=== PATIENT | female | born 1955 | race Caucasian/White ===

== ENCOUNTER → 2016-08-28 | Outpatient (CLI) | payer OTHER ==
--- NOTE | 2016-08-28 14:59 | REP ---
Clinical: Pain . Technique: AP, lateral, bilateral oblique views of the left elbow. Findings: No acute fracture or dislocation is appreciated. Joint spaces and surrounding soft tissues appear normal. Lateral view demonstrates normal positioning to the anterior and posterior fat pads without evidence for effusion/hemarthrosis. No subcutaneous emphysema or foreign body identified. Impression: Normal left elbow radiographs. Signed by Gordon Christianson MD 08/28/2016 02:50 P
== END ==
LOC: M LRY 13:59
PROVIDERS: ATTEND Nurse Practitioner Family
DX: M25.522 Pain in left elbow (principal)

== ENCOUNTER → 2016-12-15 | Outpatient (CLI) | payer OTHER ==
--- NOTE | 2016-12-19 08:53 | DEXA ---
AP SPINE L1 - L4 0.848 -2.8 -1.8 LT FEMUR TOTAL RT FEMUR TOTAL Bilateral hip replacement. TOTAL BODY TOTAL LEFT FOREARM 0.838 -0.6 0.6 DUAL FEMUR FRAX* ASSESSMENT Risk factors: NA 10 year probability of fracture Major osteoporotic fracture % Hip fracture % COMMENTS: There is osteoporosis of the spine. There is osteoporosis of the left radius. The decreased density of the spine does represent a significant change. The density of the spine has decreased 13.8% since initial exam on 09/05/2000. The spine density has decreased 5.0% since the most recent exam on 01/28/2010. FOLLOW-UP: Recommendation for the next bone density exam: 2 years. ADAM
== END ==
LOC: M WHC 08:35
PROVIDERS: ATTEND Physician Assistant
DX: M85.80 Other specified disorders of bone density and structure, unspecified site (principal); Z12.31 Encounter for screening mammogram for malignant neoplasm of breast

== ENCOUNTER → 2017-01-20 | Outpatient (CLI) | payer OTHER ==
--- NOTE | 2017-01-20 18:25 | REP ---
Clinical: Rule out foreign body. Technique: AP, lateral, bilateral oblique views of the left ankle. Findings: Age-related changes are appreciated. No acute fracture dislocation. Mild soft tissue swelling over the medial malleolus. No subcutaneous emphysema or foreign body. Impression: Age-related changes. Mild medial swelling. No foreign body identified. Signed by Gordon Christianson MD 01/20/2017 06:17 P
== END ==
LOC: M LRY 17:31
PROVIDERS: ATTEND Nurse Practitioner Family
DX: M79.89 Other specified soft tissue disorders (principal)

== ENCOUNTER → 2017-01-31 | Outpatient (CLI) | payer OTHER ==
[2017-01-31 20:24] LABS: ALBUMIN 3.4 GM/DL (3.2-5.2); ALBUMIN/GLOBULIN RATIO 0.89 (1.00-1.93); BILIRUBIN,TOTAL 0.3 MG/DL (0.2-1.0); CALCIUM LEVEL 9.3 MG/DL (8.8-10.2); CREATININE FOR GFR 1.51 MG/DL (0.55-1.02); GLOMERULAR FILTRATION RATE 37.2 (>45); POTASSIUM SERUM 4.8 MEQ/L (3.5-5.1); TOTAL PROTEIN 7.2 GM/DL (6.4-8.2)
[2017-01-31 20:35] LABS: BASO % 0.5 % (0.0-1.0); EOS # 0.2 K/mm3 (0.0-0.50); EOS % 1.9 % (0.0-3.0); LARGE UNSTAINED CELL # 0.1 K/mm3 (0.0-0.4); LARGE UNSTAINED CELL % 1.4 % (0.0-4.0); LYMPH # 3.5 K/mm3 (1.5-4.5); MEAN CORPUSCULAR HGB CONC 33.7 g/dl (32.0-36.5); MONO # 0.5 K/mm3 (0.0-0.8); MONO % 6.3 % (0.0-5.0); NEUTROPHILS # 4.3 K/mm3 (1.8-7.7); PLATELET COUNT, AUTOMATED 194 k/mm3 (150-450); RED CELL DISTRIBUTION WIDTH 13.9 % (11.5-14.5); WHITE BLOOD COUNT 8.6 K/mm3 (4.0-10.0)
== END ==
LOC: M LRY 15:55
PROVIDERS: ATTEND Internal Medicine
DX: N18.3 Chronic kidney disease, stage 3 (moderate) (principal)

== ENCOUNTER → 2017-07-27 | Outpatient (REF) | payer OTHER ==
[2017-07-27 12:14] LABS: MEAN CORPUSCULAR HGB CONC 33.3 g/dl (32.0-36.5); MEAN CORPUSCULAR VOLUME 95.9 fl (80.0-96.0); PLATELET COUNT, AUTOMATED 165 10^3/uL (150-450); RED CELL DISTRIBUTION WIDTH 14.6 % (11.5-14.5)
== END ==
LOC: M SFHCLERA 08:08
PROVIDERS: ATTEND Physician Assistant
DX: I10 Essential (primary) hypertension (principal); E78.2 Mixed hyperlipidemia; M85.80 Other specified disorders of bone density and structure, unspecified site

== ENCOUNTER → 2017-07-28 | Outpatient (REF) | payer OTHER ==
[2017-07-28 20:36] LABS: ALBUMIN 3.2 GM/DL (3.2-5.2); ALBUMIN/GLOBULIN RATIO 0.8 (1.00-1.93); BILIRUBIN,TOTAL 0.3 MG/DL (0.2-1.0); CALCIUM LEVEL 8.9 MG/DL (8.8-10.2); CREATININE FOR GFR 1.65 MG/DL (0.55-1.02); GLOMERULAR FILTRATION RATE 33.4 (>45); POTASSIUM SERUM 4.6 MEQ/L (3.5-5.1); TOTAL PROTEIN 7.2 GM/DL (6.4-8.2)
== END ==
LOC: M SFHCLERA 19:50
PROVIDERS: ATTEND Physician Assistant
DX: E78.2 Mixed hyperlipidemia (principal); I10 Essential (primary) hypertension; M85.80 Other specified disorders of bone density and structure, unspecified site

== ENCOUNTER → 2017-10-04 | Outpatient (REF) | payer OTHER ==
[2017-10-04 20:43] LABS: APPEARANCE, URINE CLEAR (CLEAR); BACTERIA, URINE AUTO NEGATIVE (NEGATIVE); BILIRUBIN, URINE AUTO NEGATIVE (NEGATIVE); BLOOD, URINE BLOOD 3+ (NEGATIVE); COLOR, URINE YELLOW (YELLOW); GLUCOSE, URINE (UA) AUTO NEGATIVE (NEGATIVE); KETONE, URINE AUTO NEGATIVE (NEGATIVE); LEUKOCYTE ESTERASE, URINE AUTO NEGATIVE (NEGATIVE); MUCUS, URINE SMALL (NEGATIVE); NITRITE, URINE AUTO NEGATIVE (NEGATIVE); PROTEIN, URINE AUTO NEGATIVE (NEGATIVE); RBC, URINE AUTO 51 /HPF (0-3); SPECIFIC GRAVITY URINE AUTO 1.014 (1.002-1.035); SQUAMOUS EPITHELIAL CELL UR AU 1 /HPF (0-6); UROBILINOGEN, URINE AUTO 0.2 mg/dL (0.0-2.0); WBC, URINE AUTO 2 /HPF (0-3)
== END ==
LOC: M SFHCLERA 11:58
DX: N39.0 Urinary tract infection, site not specified (principal)
CPT/HCPCS: 81001

== ENCOUNTER → 2017-11-15 | Outpatient (CLI) | payer OTHER | LOC: M LRY 17:04 | DX: M25.551 Pain in right hip (principal); M25.552 Pain in left hip; M54.5 Low back pain; Z96.643 Presence of artificial hip joint, bilateral; M51.36 Other intervertebral disc degeneration, lumbar region | CPT/HCPCS: 72110 ==

== ENCOUNTER → 2018-01-29 | Outpatient (REF) | payer OTHER ==
[2018-01-29 16:56] LABS: ALBUMIN 3.8 GM/DL (3.2-5.2); ALKALINE PHOSPHATASE 71 U/L (45-117); ALT/SGPT 13 U/L (12-78); ANION GAP 7 MEQ/L (8-16); AST/SGOT 17 U/L (7-37); BILIRUBIN,TOTAL 0.4 MG/DL (0.2-1.0); BLOOD UREA NITROGEN 43 MG/DL (7-18); CALCIUM LEVEL 9.4 MG/DL (8.8-10.2); CARBON DIOXIDE LEVEL 27 MEQ/L (21-32); CHLORIDE LEVEL 109 MEQ/L (98-107); GLOMERULAR FILTRATION RATE 28.4 (>45); GLUCOSE, FASTING 92 MG/DL (70-100); SODIUM LEVEL 143 MEQ/L (136-145)
[2018-01-29 17:05] LABS: POTASSIUM SERUM 5.4 MEQ/L (3.5-5.1)
== END ==
LOC: M SFHCLERA 11:29
DX: N18.3 Chronic kidney disease, stage 3 (moderate) (principal)

== ENCOUNTER → 2018-02-09 | Outpatient (REF) | payer OTHER ==
[2018-02-09 15:01] LABS: BASO % 0.3 % (0.0-1.0); EOS # 0.1 10^3/uL (0.0-0.50); EOS % 1.4 % (0.0-3.0); HEMATOCRIT 36.8 % (36.0-47.0); HEMOGLOBIN 12.3 g/dl (12.0-15.5); IMMATURE GRANULOCYTE % 0.4 % (0-3.0); LYMPH # 3.8 10^3/uL (1.5-4.5); LYMPH % 48.9 % (24.0-44.0); MEAN CORPUSCULAR HEMOGLOBIN 31.9 pg (27.0-33.0); MEAN CORPUSCULAR HGB CONC 33.4 g/dl (32.0-36.5); MEAN CORPUSCULAR VOLUME 95.3 fl (80.0-96.0); MONO # 0.6 10^3/uL (0.0-0.8); MONO % 7.5 % (0.0-5.0); NEUTROPHILS # 3.3 10^3/uL (1.8-7.7); NEUTROPHILS % 41.5 % (36.0-66.0); PLATELET COUNT, AUTOMATED 117 10^3/uL (150-450); RED BLOOD COUNT 3.86 10^6/uL (4.00-5.40); RED CELL DISTRIBUTION WIDTH 13.5 % (11.5-14.5); WHITE BLOOD COUNT 7.8 10^3/uL (4.0-10.0)
[2018-02-09 15:15] LABS: INR 0.94; PROTHROMBIN TIME 12.6 SECONDS (12.4-14.5)
[2018-02-09 15:16] LABS: ALBUMIN 3.3 GM/DL (3.2-5.2); ALBUMIN/GLOBULIN RATIO 0.83 (1.00-1.93); ALKALINE PHOSPHATASE 60 U/L (45-117); ALT/SGPT 10 U/L (12-78); ANION GAP 9 MEQ/L (8-16); AST/SGOT 13 U/L (7-37); BILIRUBIN,TOTAL 0.3 MG/DL (0.2-1.0); BLOOD UREA NITROGEN 57 MG/DL (7-18); CARBON DIOXIDE LEVEL 22 MEQ/L (21-32); CHLORIDE LEVEL 112 MEQ/L (98-107); CREATININE FOR GFR 3.57 MG/DL (0.55-1.30); FERRITIN 105 NG/ML (8-252); GLOMERULAR FILTRATION RATE 13.7 (>45); GLUCOSE, FASTING 84 MG/DL (70-100); PARTIAL THROMBOPLASTIN TIME 28.3 SECONDS (26.8-37.9); SODIUM LEVEL 143 MEQ/L (136-145); TOTAL PROTEIN 7.3 GM/DL (6.4-8.2)
[2018-02-09 15:19] LABS: POTASSIUM SERUM 5.9 MEQ/L (3.5-5.1)
== END ==
LOC: M SFHCLERA 13:40
DX: R23.3 Spontaneous ecchymoses (principal); N18.3 Chronic kidney disease, stage 3 (moderate); R53.83 Other fatigue

== ENCOUNTER → 2018-02-11 | Outpatient (REF) | payer OTHER ==
[2018-02-11 12:36] LABS: ALBUMIN 3.1 GM/DL (3.2-5.2); ANION GAP 9 MEQ/L (8-16); BLOOD UREA NITROGEN 58 MG/DL (7-18); CALCIUM LEVEL 9.2 MG/DL (8.8-10.2); CARBON DIOXIDE LEVEL 24 MEQ/L (21-32); CHLORIDE LEVEL 111 MEQ/L (98-107); CREATININE FOR GFR 3.02 MG/DL (0.55-1.30); GLOMERULAR FILTRATION RATE 16.7 (>45); GLUCOSE, FASTING 62 MG/DL (70-100); PHOSPHORUS LEVEL 4.4 MG/DL (2.5-4.9); SODIUM LEVEL 144 MEQ/L (136-145)
[2018-02-11 12:39] LABS: POTASSIUM SERUM 5.8 MEQ/L (3.5-5.1)
[2018-02-11 13:35] LABS: CREATININE, URINE 99.2 MG/DL; MALB URINE SIEMENS 19.6 MG/L; MAU/CREAT RATIO 19.7 MCG/MG (0.0-30.0)
== END ==
LOC: M SFHCLERA 08:27
DX: N18.3 Chronic kidney disease, stage 3 (moderate) (principal)

== ENCOUNTER → 2018-02-19 | Outpatient (REF) | payer OTHER ==
[2018-02-19 16:56] LABS: HEMATOCRIT 30.2 % (36.0-47.0); HEMOGLOBIN 10.1 g/dl (12.0-15.5); MEAN CORPUSCULAR HEMOGLOBIN 31.4 pg (27.0-33.0); MEAN CORPUSCULAR HGB CONC 33.4 g/dl (32.0-36.5); MEAN CORPUSCULAR VOLUME 93.8 fl (80.0-96.0); PLATELET COUNT, AUTOMATED 129 10^3/uL (150-450); RED BLOOD COUNT 3.22 10^6/uL (4.00-5.40); RED CELL DISTRIBUTION WIDTH 13.4 % (11.5-14.5); WHITE BLOOD COUNT 7.1 10^3/uL (4.0-10.0)
[2018-02-19 17:15] LABS: ALBUMIN 2.8 GM/DL (3.2-5.2); ALBUMIN/GLOBULIN RATIO 0.74 (1.00-1.93); ALKALINE PHOSPHATASE 60 U/L (45-117); ALT/SGPT 14 U/L (12-78); ANION GAP 10 MEQ/L (8-16); AST/SGOT 20 U/L (7-37); BILIRUBIN,TOTAL 0.3 MG/DL (0.2-1.0); BLOOD UREA NITROGEN 29 MG/DL (7-18); CALCIUM LEVEL 8.3 MG/DL (8.8-10.2); CARBON DIOXIDE LEVEL 27 MEQ/L (21-32); CHLORIDE LEVEL 107 MEQ/L (98-107); CREATININE FOR GFR 1.97 MG/DL (0.55-1.30); FERRITIN 120 NG/ML (8-252); GLOMERULAR FILTRATION RATE 27.3 (>45); GLUCOSE, FASTING 85 MG/DL (70-100); IRON (FE) 50 UG/DL (50-170); POTASSIUM SERUM 4.5 MEQ/L (3.5-5.1); SODIUM LEVEL 144 MEQ/L (136-145); TOTAL PROTEIN 6.6 GM/DL (6.4-8.2)
== END ==
LOC: M SFHCLERA 10:41
DX: N17.9 Acute kidney failure, unspecified (principal); I10 Essential (primary) hypertension; D64.9 Anemia, unspecified
CPT/HCPCS: 83540

== ENCOUNTER → 2018-04-05 | Outpatient (CLI) | payer OTHER | LOC: M PAIN 14:45 | DX: M25.551 Pain in right hip (principal); M25.552 Pain in left hip; M54.5 Low back pain; M70.61 Trochanteric bursitis, right hip; G89.29 Other chronic pain; I12.9 Hypertensive chronic kidney disease with stage 1 through stage 4 chronic kidney disease, or unspecified chronic kidney disease; N18.3 Chronic kidney disease, stage 3 (moderate); E78.5 Hyperlipidemia, unspecified; F32.9 Major depressive disorder, single episode, unspecified; J30.9 Allergic rhinitis, unspecified; R56.9 Unspecified convulsions; Z79.899 Other long term (current) drug therapy; Z91.018 Allergy to other foods; Z91.030 Bee allergy status; Z91.09 Other allergy status, other than to drugs and biological substances; Z96.643 Presence of artificial hip joint, bilateral; Z87.898 Personal history of other specified conditions; Z86.79 Personal history of other diseases of the circulatory system; Z87.448 Personal history of other diseases of urinary system | CPT/HCPCS: G0463 ==

== ENCOUNTER → 2018-04-10 | Outpatient (REF) | payer OTHER ==
[2018-04-10 20:38] LABS: ANION GAP 9 MEQ/L (8-16); BLOOD UREA NITROGEN 36 MG/DL (7-18); CALCIUM LEVEL 9.1 MG/DL (8.8-10.2); CARBON DIOXIDE LEVEL 24 MEQ/L (21-32); CHLORIDE LEVEL 111 MEQ/L (98-107); CREATININE FOR GFR 2.13 MG/DL (0.55-1.30); GLOMERULAR FILTRATION RATE 24.8 (>45); GLUCOSE, FASTING 91 MG/DL (70-100); MAGNESIUM LEVEL 1.8 MG/DL (1.8-2.4); PHOSPHORUS LEVEL 4.1 MG/DL (2.5-4.9); POTASSIUM SERUM 4.3 MEQ/L (3.5-5.1); SODIUM LEVEL 144 MEQ/L (136-145)
[2018-04-10 20:48] LABS: PTH INTACT 168.8 PG/ML (18.5-88.0); TOTAL 25(OH) VITAMIN D 28.8 NG/ML (30.0-100.0)
[2018-04-10 21:18] LABS: CREATININE, URINE 95.7 MG/DL; MALB URINE SIEMENS 50.9 MG/L; MAU/CREAT RATIO 53.1 MCG/MG (0.0-30.0)
== END ==
LOC: M SFHCLERA 17:18
DX: N18.4 Chronic kidney disease, stage 4 (severe) (principal)

== ENCOUNTER → 2018-04-19 | Outpatient (REF) | payer OTHER ==
[2018-04-19 16:31] LABS: ALBUMIN 3.4 GM/DL (3.2-5.2); ALBUMIN/GLOBULIN RATIO 0.77 (1.00-1.93); ALKALINE PHOSPHATASE 69 U/L (45-117); ALT/SGPT 14 U/L (12-78); ANION GAP 10 MEQ/L (8-16); AST/SGOT 20 U/L (7-37); BILIRUBIN,TOTAL 0.3 MG/DL (0.2-1.0); BLOOD UREA NITROGEN 29 MG/DL (7-18); CALCIUM LEVEL 9.4 MG/DL (8.8-10.2); CARBON DIOXIDE LEVEL 22 MEQ/L (21-32); CHLORIDE LEVEL 113 MEQ/L (98-107); CREATININE FOR GFR 2.06 MG/DL (0.55-1.30); GLOMERULAR FILTRATION RATE 25.8 (>45); GLUCOSE, FASTING 78 MG/DL (70-100); POTASSIUM SERUM 4.5 MEQ/L (3.5-5.1); SODIUM LEVEL 145 MEQ/L (136-145); TOTAL PROTEIN 7.8 GM/DL (6.4-8.2)
== END ==
LOC: M SFHCLERA 14:13
DX: N18.4 Chronic kidney disease, stage 4 (severe) (principal)

== ENCOUNTER → 2018-05-01 | Outpatient (CLI) | payer OTHER ==
[2018-05-01 17:13] LABS: APPEARANCE, URINE CLEAR (CLEAR); BACTERIA, URINE AUTO NEGATIVE (NEGATIVE); BILIRUBIN, URINE AUTO NEGATIVE (NEGATIVE); BLOOD, URINE BLOOD 3+ (NEGATIVE); COLOR, URINE YELLOW (YELLOW); GLUCOSE, URINE (UA) AUTO NEGATIVE (NEGATIVE); KETONE, URINE AUTO NEGATIVE (NEGATIVE); LEUKOCYTE ESTERASE, URINE AUTO NEGATIVE (NEGATIVE); NITRITE, URINE AUTO NEGATIVE (NEGATIVE); PROTEIN, URINE AUTO NEGATIVE (NEGATIVE); RBC, URINE AUTO 64 /HPF (0-3); SPECIFIC GRAVITY URINE AUTO 1.011 (1.002-1.035); SQUAMOUS EPITHELIAL CELL UR AU 0 /HPF (0-6); WBC, URINE AUTO 1 /HPF (0-3)
[2018-05-01 17:32] LABS: HEMATOCRIT 33.4 % (36.0-47.0); HEMOGLOBIN 11.2 g/dl (12.0-15.5); MEAN CORPUSCULAR HEMOGLOBIN 32.3 pg (27.0-33.0); MEAN CORPUSCULAR HGB CONC 33.5 g/dl (32.0-36.5); MEAN CORPUSCULAR VOLUME 96.3 fl (80.0-96.0); PLATELET COUNT, AUTOMATED 150 10^3/uL (150-450); RED BLOOD COUNT 3.47 10^6/uL (4.00-5.40); RED CELL DISTRIBUTION WIDTH 14.2 % (11.5-14.5); WHITE BLOOD COUNT 7.6 10^3/uL (4.0-10.0)
[2018-05-01 18:07] LABS: ANION GAP 9 MEQ/L (8-16); BLOOD UREA NITROGEN 30 MG/DL (7-18); CARBON DIOXIDE LEVEL 25 MEQ/L (21-32); CHLORIDE LEVEL 110 MEQ/L (98-107); CREATININE FOR GFR 2.18 MG/DL (0.55-1.30); GLOMERULAR FILTRATION RATE 24.2 (>45); GLUCOSE, FASTING 93 MG/DL (70-100); SODIUM LEVEL 144 MEQ/L (136-145); VALPROIC ACID (DEPAKOTE) 91.4 UG/ML (50.0-100.0)
[2018-05-01 18:12] LABS: POTASSIUM SERUM 6.5 MEQ/L (3.5-5.1)
[2018-05-01 18:19] LABS: CREATININE, URINE 54.4 MG/DL; MALB URINE SIEMENS 17.2 MG/L; MAU/CREAT RATIO 31.6 MCG/MG (0.0-30.0)
== END ==
LOC: M LRY 12:04
DX: N18.3 Chronic kidney disease, stage 3 (moderate) (principal); I12.9 Hypertensive chronic kidney disease with stage 1 through stage 4 chronic kidney disease, or unspecified chronic kidney disease; G40.909 Epilepsy, unspecified, not intractable, without status epilepticus
CPT/HCPCS: 80164

== ENCOUNTER → 2018-05-08 | Outpatient (CLI) | payer OTHER ==
[2018-05-08 11:37] LABS: ANION GAP 7 MEQ/L (8-16); BLOOD UREA NITROGEN 22 MG/DL (7-18); CALCIUM LEVEL 8.8 MG/DL (8.8-10.2); CARBON DIOXIDE LEVEL 28 MEQ/L (21-32); CHLORIDE LEVEL 109 MEQ/L (98-107); CREATININE FOR GFR 1.94 MG/DL (0.55-1.30); GLOMERULAR FILTRATION RATE 27.7 (>45); GLUCOSE, FASTING 80 MG/DL (70-100); POTASSIUM SERUM 4.9 MEQ/L (3.5-5.1); SODIUM LEVEL 144 MEQ/L (136-145)
== END ==
LOC: M LRY 08:17
DX: N18.3 Chronic kidney disease, stage 3 (moderate) (principal)
CPT/HCPCS: 80048

== ENCOUNTER → 2018-06-15 | Outpatient (CLI) | payer OTHER | LOC: M RAD 13:57 | DX: M54.5 Low back pain (principal); R93.7 Abnormal findings on diagnostic imaging of other parts of musculoskeletal system | CPT/HCPCS: 72148 ==

== ENCOUNTER → 2018-06-21 | Outpatient (CLI) | payer OTHER ==
[2018-06-21 17:00] LABS: HEMATOCRIT 36.9 % (36.0-47.0); HEMOGLOBIN 12.1 g/dl (12.0-15.5); MEAN CORPUSCULAR HEMOGLOBIN 31.6 pg (27.0-33.0); MEAN CORPUSCULAR HGB CONC 32.8 g/dl (32.0-36.5); MEAN CORPUSCULAR VOLUME 96.3 fl (80.0-96.0); PLATELET COUNT, AUTOMATED 141 10^3/uL (150-450); RED BLOOD COUNT 3.83 10^6/uL (4.00-5.40); RED CELL DISTRIBUTION WIDTH 13.4 % (11.5-14.5); WHITE BLOOD COUNT 7.9 10^3/uL (4.0-10.0)
[2018-06-21 17:26] LABS: ALBUMIN 3.4 GM/DL (3.2-5.2); ALBUMIN/GLOBULIN RATIO 0.92 (1.00-1.93); ALKALINE PHOSPHATASE 64 U/L (45-117); ALT/SGPT 11 U/L (12-78); ANION GAP 10 MEQ/L (8-16); AST/SGOT 24 U/L (7-37); BILIRUBIN,TOTAL 0.3 MG/DL (0.2-1.0); BLOOD UREA NITROGEN 27 MG/DL (7-18); CALCIUM LEVEL 9.6 MG/DL (8.8-10.2); CARBON DIOXIDE LEVEL 26 MEQ/L (21-32); CHLORIDE LEVEL 109 MEQ/L (98-107); CHOLESTEROL LEVEL 181 MG/DL (<200); CHOLESTEROL RISK RATIO 2.701 (<5); CREATININE FOR GFR 1.97 MG/DL (0.55-1.30); GLOMERULAR FILTRATION RATE 27.2 (>45); GLUCOSE, FASTING 81 MG/DL (70-100); HDL CHOLESTEROL 67 MG/DL (>40); LDL CHOLESTEROL 80 MG/DL (<100); NON-HDL-C 114 MG/DL; POTASSIUM SERUM 4.7 MEQ/L (3.5-5.1); SODIUM LEVEL 145 MEQ/L (136-145); TOTAL PROTEIN 7.1 GM/DL (6.4-8.2); TRIGLYCERIDES LEVEL 170 MG/DL (<150)
[2018-06-21 17:45] LABS: MALB URINE SIEMENS 51.6 MG/L
[2018-06-21 17:48] LABS: MAU/CREAT RATIO 45.3 MCG/MG (0.0-30.0)
[2018-06-21 18:01] LABS: APPEARANCE, URINE HAZY (CLEAR); BACTERIA, URINE AUTO 1+ (NEGATIVE); BILIRUBIN, URINE AUTO NEGATIVE (NEGATIVE); BLOOD, URINE BLOOD 3+ (NEGATIVE); COLOR, URINE YELLOW (YELLOW); GLUCOSE, URINE (UA) AUTO NEGATIVE (NEGATIVE); KETONE, URINE AUTO NEGATIVE (NEGATIVE); LEUKOCYTE ESTERASE, URINE AUTO TRACE (NEGATIVE); MUCUS, URINE SMALL (NEGATIVE); NITRITE, URINE AUTO NEGATIVE (NEGATIVE); PROTEIN, URINE AUTO NEGATIVE (NEGATIVE); RBC, URINE AUTO 156 /HPF (0-3); SPECIFIC GRAVITY URINE AUTO 1.013 (1.002-1.035); SQUAMOUS EPITHELIAL CELL UR AU 0 /HPF (0-6); UROBILINOGEN, URINE AUTO 0.2 mg/dL (0.0-2.0); WBC, URINE AUTO 5 /HPF (0-3)
== END ==
LOC: M LRY 12:24
DX: N18.3 Chronic kidney disease, stage 3 (moderate) (principal); E78.00 Pure hypercholesterolemia, unspecified
CPT/HCPCS: 80053

== ENCOUNTER → 2018-07-04 | Outpatient (CLI) | payer OTHER | LOC: M PAIN 15:00 | DX: M47.816 Spondylosis without myelopathy or radiculopathy, lumbar region (principal); M79.18 Myalgia, other site; M54.5 Low back pain; I12.9 Hypertensive chronic kidney disease with stage 1 through stage 4 chronic kidney disease, or unspecified chronic kidney disease; N18.3 Chronic kidney disease, stage 3 (moderate); E78.5 Hyperlipidemia, unspecified; F32.9 Major depressive disorder, single episode, unspecified; R56.9 Unspecified convulsions; Z79.899 Other long term (current) drug therapy; Z88.8 Allergy status to other drugs, medicaments and biological substances; Z91.030 Bee allergy status; Z91.09 Other allergy status, other than to drugs and biological substances; Z91.018 Allergy to other foods; Z96.643 Presence of artificial hip joint, bilateral; Z87.891 Personal history of nicotine dependence | CPT/HCPCS: G0463 ==

== ENCOUNTER → 2018-07-26 | Outpatient (CLI) | payer OTHER ==
[2018-07-26 11:27] LABS: APPEARANCE, URINE HAZY (CLEAR); BACTERIA, URINE AUTO 1+ (NEGATIVE); BILIRUBIN, URINE AUTO NEGATIVE (NEGATIVE); BLOOD, URINE BLOOD 3+ (NEGATIVE); COLOR, URINE YELLOW (YELLOW); GLUCOSE, URINE (UA) AUTO NEGATIVE (NEGATIVE); KETONE, URINE AUTO NEGATIVE (NEGATIVE); LEUKOCYTE ESTERASE, URINE AUTO NEGATIVE (NEGATIVE); NITRITE, URINE AUTO NEGATIVE (NEGATIVE); PROTEIN, URINE AUTO NEGATIVE (NEGATIVE); RBC, URINE AUTO TNTC /HPF (0-3); SPECIFIC GRAVITY URINE AUTO 1.009 (1.002-1.035); SQUAMOUS EPITHELIAL CELL UR AU 0 /HPF (0-6); UROBILINOGEN, URINE AUTO 0.2 mg/dL (0.0-2.0); WBC, URINE AUTO 7 /HPF (0-3)
[2018-07-26 11:29] LABS: HEMATOCRIT 35.4 % (36.0-47.0); HEMOGLOBIN 12.1 g/dl (12.0-15.5); MEAN CORPUSCULAR HEMOGLOBIN 31.7 pg (27.0-33.0); MEAN CORPUSCULAR HGB CONC 34.2 g/dl (32.0-36.5); MEAN CORPUSCULAR VOLUME 92.7 fl (80.0-96.0); PLATELET COUNT, AUTOMATED 163 10^3/uL (150-450); RED BLOOD COUNT 3.82 10^6/uL (4.00-5.40); RED CELL DISTRIBUTION WIDTH 13.3 % (11.5-14.5); WHITE BLOOD COUNT 7.2 10^3/uL (4.0-10.0)
[2018-07-26 11:35] LABS: ALBUMIN 3.3 GM/DL (3.2-5.2); ALKALINE PHOSPHATASE 70 U/L (45-117); ALT/SGPT 10 U/L (12-78); ANION GAP 12 MEQ/L (8-16); AST/SGOT 19 U/L (7-37); BILIRUBIN,TOTAL 0.4 MG/DL (0.2-1.0); BLOOD UREA NITROGEN 41 MG/DL (7-18); CALCIUM LEVEL 8.8 MG/DL (8.8-10.2); CARBON DIOXIDE LEVEL 24 MEQ/L (21-32); CHLORIDE LEVEL 108 MEQ/L (98-107); CREATININE FOR GFR 2.33 MG/DL (0.55-1.30); GLOMERULAR FILTRATION RATE 22.4 (>45); GLUCOSE, FASTING 86 MG/DL (70-100); POTASSIUM SERUM 3.9 MEQ/L (3.5-5.1); SODIUM LEVEL 144 MEQ/L (136-145); TOTAL PROTEIN 7.4 GM/DL (6.4-8.2); VALPROIC ACID (DEPAKOTE) 52.9 UG/ML (50.0-100.0)
[2018-07-26 11:46] LABS: AMMONIA 33 uMOL/L (<32)
[2018-07-26 12:14] LABS: CREATININE, URINE 63.5 MG/DL; MALB URINE SIEMENS 17.7 MG/L; MAU/CREAT RATIO 27.8 MCG/MG (0.0-30.0)
== END ==
LOC: M LRY 09:10
DX: N18.3 Chronic kidney disease, stage 3 (moderate) (principal); G40.909 Epilepsy, unspecified, not intractable, without status epilepticus
CPT/HCPCS: 82140

== ENCOUNTER → 2018-08-16 | Outpatient (CLI) | payer OTHER ==
[~2018-08-16] MED LIST: ASPI81TAEC PO; BIMA01SOL IO; BIMA01SOL OU; BRIM1OPD IO; BRIM1OPD OU; CYMB1CAP5 PO; DIVA250T67 PO; DIVA500T94 PO; DULO1CAP2 PO; FLON1SPR; FLUTISP; GABA-843 PO; KALEPOW PO; LISI-538 PO; LORA-243 PO; LORA10TA3 PO; MAGN400C3 PO; OXYB10TA PO; PANT40TA3 PO; PRAV20TA2 PO; RANI150T PO; TIZA2TA PO; VELT1POW PO
[2018-08-16 20:08] LABS: HEMATOCRIT 37.8 % (36.0-47.0); HEMOGLOBIN 12.7 g/dl (12.0-15.5); MEAN CORPUSCULAR HEMOGLOBIN 31.8 pg (27.0-33.0); MEAN CORPUSCULAR HGB CONC 33.6 g/dl (32.0-36.5); MEAN CORPUSCULAR VOLUME 94.5 fl (80.0-96.0); PLATELET COUNT, AUTOMATED 141 10^3/uL (150-450); WHITE BLOOD COUNT 7.9 10^3/uL (4.0-10.0)
[2018-08-16 20:12] LABS: ALBUMIN 3.7 GM/DL (3.2-5.2); BILIRUBIN,TOTAL 0.4 MG/DL (0.2-1.0); CALCIUM LEVEL 9.4 MG/DL (8.8-10.2); CREATININE FOR GFR 3.09 MG/DL (0.55-1.30); GLOMERULAR FILTRATION RATE 16.2 (>45); POTASSIUM SERUM 4.2 MEQ/L (3.5-5.1); TOTAL PROTEIN 8.2 GM/DL (6.4-8.2)
== END ==
LOC: M LRY 15:49
PROVIDERS: ATTEND Internal Medicine
DX: N18.3 Chronic kidney disease, stage 3 (moderate) (principal)

== ENCOUNTER → 2018-08-16 | Outpatient (CLI) | payer OTHER ==
--- NOTE | 2018-09-03 02:04 | ECWPNPC ---
PATIENT NAME: NILDA COLBY : 1955 GENDER: FEMALE VISIT DATE: 08/16/2018 DISCHARGE DATE: 08/16/18 1208 VISIT LOCKED DATE TIME: PHYSICIAN: ANA SANCHEZ MD RESOURCE: ANA SANCHEZ MD REASON FOR APPOINTMENT 1. LOW BACK PAIN HISTORY OF PRESENT ILLNESS HISTORY OF PRESENT ILLNESS: PAIN THE PATIENT DESCRIBES THE PAIN... 63 YEAR OLD FEMALE PATIENT WITH A HISTORY OF CHRONIC LOW BACK PAIN. THE PATIENT DESCRIBES THE PAIN ACHING, BURNING SHARP, STABBING, TENDER, SORE, SHOOTING, AND INTERMITTENT WITH A PAIN SCORE OF 6-10/10 DEPENDING ON PHYSICAL ACTIVITY. THE PATIENT SAYS HER PAIN STARTS IN HER LOW BACK AREA AND RADIATES INTO HER HIPS AND GROIN. THE PATIENT HAD BILATERAL HIP SURGERY DUE TO A HISTORY OF VASCULAR NECROSIS OF THE HIPS. PATIENT DENIES UNEXPLAINABLE WEIGHT LOSS, FEVER, CHILLS, NEW CHANGES ON HER URINARY OR BOWEL CONTROL. FALL RISK SCREENING: SCREENING :NO FALLS IN THE PAST YEAR CURRENT MEDICATIONS TAKING ACETAMINOPHEN EXTRA STRENGTH 500 MG TABLET 1 TABLET NEEDED ORALLY EVERY 6 HRS TAKING FISH OIL 1200 MG CAPSULE 4 CAPSULE ORALLY ONCE A DAY TAKING LUMIGAN 0.01 % SOLUTION 1 DROP INTO AFFECTED EYE IN THE EVENING OPHTHALMIC ONCE A DAY TAKING ALPHAGAN P TAKING VENTOLIN HFA 108 (90 BASE) MCG/ACT AEROSOL SOLUTION 2 PUFFS NEEDED INHALATION EVERY 4 HRS TAKING DULOXETINE HCL 30 MG CAPSULE DELAYED RELEASE PARTICLES 1 CAPSULE ORALLY DAILY TAKING FLONASE ALLERGY RELIEF 50 MCG/ACT SUSPENSION 1 SPRAY IN EACH NOSTRIL NASALLY BID TAKING PRAVASTATIN SODIUM 20 MG TABLET 1 TABLET ORALLY ONCE A DAY TAKING DIVALPROEX SODIUM 500 MG TABLET DELAYED RELEASE 1 TABLET ALONG WITH 250MG IN AM ORALLY TWICE A DAY FOR SEIZURES TAKING FLOVENT HFA 220 MCG/ACT AEROSOL 1 PUFF INHALATION TWICE A DAY TAKING GABAPENTIN 300 MG CAPSULE 1 CAPSULE ORALLY DAILY TAKING FLUOCINOLONE ACETONIDE 0.025 % CREAM 1 APPLICATION TO TRUNK AND ARMS EXTERNALLY ONCE A DAY PRN TAKING OXYBUTYNIN CHLORIDE ER 10 MG TABLET EXTENDED RELEASE 24 HOUR 1 TABLET ORALLY ONCE A DAY TAKING DIVALPROEX SODIUM 250 MG TABLET DELAYED RELEASE 1 TABLET ORALLY QAM FOR SEIZURES TAKING HYDROXYZINE HCL 25 MG TABLET 1-2 TABS ORALLY TID PRN, NOTES: NONE RECENTLY TAKING AMMONIUM LACTATE 12 % CREAM 1 APPLICATION TO AFFECTED AREA OF BOTH FEET EXTERNALLY TWICE A DAY TAKING TOPROL XL 25 MG TABLET EXTENDED RELEASE 24 HOUR 1 TABLET ORALLY ONCE A DAY TAKING STOOL SOFTENER 100 MG CAPSULE 1 CAPSULE NEEDED ORALLY ONCE A WEEK TAKING ASPIRIN 81 MG TABLET DELAYED RELEASE 1 TABLET ORALLY ONCE A DAY TAKING HOSPITAL BED(ADJUSTABLE) STANDARD _ DIRECTED _ DAILY ICD10 M25.551, M54.5, Z87.39 TAKING BLOOD PRESSURE KIT - KIT DIRECTED _ DAILY TAKING ZANTAC 150 MG TABLET 1 TABLET AT BEDTIME ORALLY ONCE A DAY DISCONTINUED TIZANIDINE HCL 2 MG TABLET 1 TAB ORALLY QHS DISCONTINUED REFRESH LIQUIGEL 1 % SOLUTION 1 DROP INTO AFFECTED EYE NEEDED OPHTHALMIC 24 TIME(S) A DAY DISCONTINUED HYDROCODONE-ACETAMINOPHEN 5-325 MG TABLET 1/2-1 TABLET NEEDED ORALLY EVERY 6 HRS (MDD-4 TABS), NOTES: NONE RECENTLY DISCONTINUED CICLOPIROX 8 % SOLUTION 1 APPLICATION TO BILATERAL TOENAILS EXTERNALLY ONCE A DAY; CLEAN OFF NAILS WITH ALCOHOL EVERY 7 DAYS DISCONTINUED DEPAKOTE 500 MG TABLET DELAYED RELEASE TAKE ONE TABLET BY MOUTH TWICE A DAY FOR SEIZURES (ALSO AN ADDITIONAL 250MG IN A.M.) DISCONTINUED PANTOPRAZOLE SODIUM 40 MG TABLET DELAYED RELEASE TAKE ONE TABLET BY MOUTH DAILY ORAL DISCONTINUED MAGNESIUM OXIDE 400 (241.3 MG) MG TABLET TAKE ONE TABLET BY MOUTH TWICE A DAY ORAL DISCONTINUED LOVAZA 1 GM CAPSULE 2 CAPSULES ORALLY TWICE A DAY MEDICATION LIST REVIEWED AND RECONCILED WITH THE PATIENT PAST MEDICAL HISTORY HYPERTENSION HYPERLIPIDEMIA OVERACTIVE BLADDER DEPRESSION ALLERGIES SEIZURE DISORDER LEG CRAMPS ALLERGY-INDUCED BRONCHOSPASM RSTAGE 3 KEDNEY DISEASE LEFT KNEE PAIN ALLERGIES FRESH WATER FISH: HIVES: ALLERGY AMLODIPINE BESYLATE: LOWER EXTREMITY EDEMA: SIDE EFFECTS HORSES/BEES: HIVES: ALLERGY SURGICAL HISTORY LEFT HIP REPLACEMENT RIGHT HIP REPLACEMENT TUBAL LIGATION HYSTERECTOMY & BSO 1997 FOOT SURGERY X 2 ON EACH FOOT BREAST BIOPSY EACH BREAST CATARACT-BILATERAL COLONOSCOPY ([facility] - DR. DUMONT) 2011 FAMILY HISTORY FATHER: , LUNG CANCER, DIAGNOSED WITH CANCER MOTHER: , OVARIAN CANCER, DIAGNOSED WITH CANCER SIBLINGS: ALIVE SON(S): ALIVE 1 BROTHER(S) . 3 SON(S) . SOCIAL HISTORY GENERAL: TOBACCO USE ARE YOU A:FORMER SMOKER 2007 QUIT HOW LONG HAS IT BEEN SINCE YOU LAST SMOKED?> 10 YEARS LUNG CANCER SCREENING SMOKING STATUS: FORMER SMOKER. BMI CARE GOAL FOLLOW-UP ABOVE NORMAL BMI FOLLOW-UPDIETARY MANAGEMENT EDUCATION, GUIDANCE, AND COUNSELING ALCOHOL SCREENING DID YOU HAVE A DRINK CONTAINING ALCOHOL IN THE PAST YEAR?YES HOW MANY DRINKS DID YOU HAVE ON A TYPICAL DAY WHEN YOU WERE DRINKING IN THE PAST YEAR?1 OR 2 (0 POINTS) HOW OFTEN DID YOU HAVE A DRINK CONTAINING ALCOHOL IN THE PAST YEAR?MONTHLY OR LESS (1 POINT) POINTS1 INTERPRETATIONNEGATIVE RECREATIONAL DRUG USE DRUG USE?NO CAFFEINE CAFFEINE USE?YES DIET COKE SEXUAL HX HAD SEX IN THE LAST 12 MONTHS (VAGINAL, ORAL, OR ANAL)?NO HAVE YOU EVER HAD AN STD?NO HIV / HEP-C SCREENING HIV TEST OFFERED TO PATIENT:YES DATE OFFERED:08/06/2018 TEST ACCEPTED:NO REASON:PATIENT DECLINED BROCHURE PROVIDED TO PATIENTYES HEP-C TEST OFFERED TO PATIENT:YES DATE OFFERED:08/06/2018 TEST ACCEPTED:NO REASON:PATIENT DECLINED CATHOLIC [id number] RESTORATIONISM LANGUAGE LANGUAGES SPOKEN:OCCITAN EDUCATION LEVEL OF EDUCATION:NOT FINISHED COLLEGE LEARNING BARRIERS / SPECIAL NEEDS CHANGE FROM LAST VISIT?NO BARRIERS TO LEARNING?NO HEARING IMPAIRED?NO VISION IMPAIRED?NO COGNITIVELY IMPAIRED?NO READINESS TO LEARN?YES LEARNING PREFERENCES?NO LEARNING CAPABILITIES PRESENT?YES EMOTIONAL BARRIERS?NO SPECIAL DEVICES?NO ENGINEERING AGENT NEEDED?NO DOMESTIC VIOLENCE DO YOU FEEL SAFE IN YOUR ENVIRONMENT?YES 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 DIET: REGULAR. EXERCISE: WALKS. MARITAL STATUS: . OTHERS AT HOME: NONE. PAIN CLINIC PFS, CLERGY, PUBLIC HEALTH REFERRALS PFS REFERRAL NEEDED?NO CLERGY REFERRAL NEEDED?NO PUBLIC HEALTH REFERRAL NEEDED?NO WAS THE PROVIDER NOTIFIED OF ANY PERTINENT INFO?NO HAS THE PATIENT BEEN EDUCATED REGARDING HIS/HER PLAN OF CARE?YES HAS THE PATIENT BEEN EDUCATED REGARDING PAIN, THE RISK FOR PAIN, THE IMPORTANCE OF EFFECTIVE PAIN MANAGEMENT, AND THE PAIN ASSESSMENT PROCESS?YES HOUSING: RENTS APARTMENT. ADVANCE DIRECTIVE ADVANCE DIRECTIVE DISCUSSED WITH PATIENT:YES PT DOES NOT WANT INTO AT THIS TIME. 07/04/18 REVIEWED WITH PT 07/04/18 1529 BV. HOSPITALIZATION/MAJOR DIAGNOSTIC PROCEDURE [facility]RA 01/2018 REVIEW OF SYSTEMS REVIEWED BY: PROVIDER: ANA SANCHEZ MD . CONSTITUTIONAL: ANY CHANGE IN YOUR MEDICAL CONDITION? YES . CHILLS NO . FEVER NO . INFECTION: DO YOU HAVE NEW INFECTIONS? NO . DO YOU HAVE HISTORY OF MRSA? NO . MUSCULOSKELETAL: ANY NEW PATTERNS OF PAIN OR NUMBNESS? YES . GASTROENTEROLOGY: ANY NEW CHANGE IN BOWEL CONTROL? NO . GENITOURINARY: ANY NEW CHANGE IN BLADDER CONTROL? NO . IS THERE A CHANCE YOU COULD BE ? NO . HEMATOLOGY/LYMPH: DO YOU TAKE ANY BLOOD THINNERS? (FOR EXAMPLE- COUMADIN, PLAVIX, AGGRENOX, PLATEL, PRADAXA, OR XARELTO) NO . WHEN WAS YOUR LAST DOSE? DATE: TIME: . NEUROLOGY: HAVE YOU FALLEN IN THE PAST 6 MONTHS? NO . ANY NEW EXTREMITY NUMBNESS OR WEAKNESS? NO . CARDIOLOGY: DO YOU HAVE A PACEMAKER OR DEFIBRILLATOR? NO . RESPIRATORY: HAVE YOU BEEN SICK IN THE PAST WEEK? NO . FEVER NO . FLU LIKE SYMPTOMS? NO . COUGH NO . INTEGUMENTARY: DO YOU HAVE ANY RASHES OR OPEN SORES? NO . ALLERGIC/IMMUNO: ARE YOU ALLERGIC TO SHELLFISH OR IV DYE? NO . ANY NEW ALLERGIES? NO . PSYCHIATRIC: DO YOU HAVE THOUGHTS OF HURTING YOURSELF OR SOMEONE ELSE? NO . ARE YOU ABUSED, NEGLECTED, OR IN AN UNSAFE ENVIRONMENT? NO . ENDOCRINOLOGY: ARE YOU DIABETIC? NO . OTHER: DO YOU NEED ANY PRESCRIPTIONS? NO . IF YES, PLEASE LIST: ____ . ANY NEW PROBLEMS WITH YOUR MEDICATIONS? NO . WHEN DID YOU LAST EAT? ____ . WHEN DID YOU LAST DRINK? ____ . WHAT DID YOU LAST DRINK? ____ . NAME OF PERSON DRIVING YOU HOME? ____ . DO YOU HAVE ANY OTHER QUESTIONS OR CONCERNS YES, PAIN IN MY KNEE FROM FALLING SEEMS TO BE WORSE AND LINGERING . VITAL SIGNS WT 168.2 LBS, HT 67 IN, BMI 26.34 INDEX, BP 131/69 MM HG, HR 61 /MIN, RR 16 /MIN, TEMP 96.9 F, OXYGEN SAT % 97%, SAFE IN ENV? (Y/N) Y, NA INITIALS SC 10:38, REVIEWED BY: DEVON. EXAMINATION GENERAL EXAMINATION: PATIENT IS ALERT O X 3 AND COOPERATIVE. TENDERNESS IN THE LOW BACK AREA. PAIN INCREASES OVER THE LUMBAR FACET JOINTS WITH EXTENSION AND LATERAL ROTATION OF THE BACK. MRI OF THE LUMBAR SPINE DONE ON 06/15/2018 SHOWS FACET ARTHROPATHY CHANGES AT MULTIPLE LEVELS. ASSESSMENTS SPONDYLOSIS OF LUMBAR REGION WITHOUT MYELOPATHY OR RADICULOPATHY - M47.816 (PRIMARY) TREATMENT SPONDYLOSIS OF LUMBAR REGION WITHOUT MYELOPATHY OR RADICULOPATHY CLINICAL NOTES: WE DISCUSSED SEVERAL ISSUES WITH MRS. COLBY'S PAIN MANAGEMENT CASE. I WOULD LIKE TO DISCUSS THE CASE WITH THE PATIENT'S POULTRY BONER AND ORTHOPEDIC SURGEON REGARDING THE NECROSIS OF THE HIPS AND THE PATIENT'S KIDNEYS. AFTER SPEAKING WITH THE PATIENT'S DOCTORS WE WILL CONSIDER A BILATERAL LUMBAR FACET THERAPEUTIC BLOCK. THE PATIENT WILL FOLLOW UP IN 2 WEEKS. INSTRUCTIONS WERE GIVEN, QUESTIONS WERE ANSWERED, PATIENT REPORTS UNDERSTANDING AND AGREES WITH THE PLAN. I, SAMANTHA WILLIAM, DOCUMENTED THE ABOVE INFORMATION ACTING A SCRIBE FOR DR. SANCHEZ. I HAVE REVIEWED THE ABOVE DOCUMENT, WRITTEN BY SAMANTHA SKINNERIBLiyah AND I VERIFY THAT IT IS ACCURATE. PROCEDURE CODES FA211 ESTABILISHED PATIENT [facility] FACILITY CHARGE G8427 CURRENT MEDS W/DOSAGES DOCUMENTED G8730 PAIN ASSESS POS TOOL F/U PLAN DOC DISPOSITION & COMMUNICATION FOLLOW UP 2 WEEKS ELECTRONICALLY SIGNED BY ANA SANCHEZ MD, MD ON 09/02/2018 AT 02:09 PM EST DISCLAIMER : THIS IS A VISIT SUMMARY EXTRACTED FROM THE [employer] CHART. IT IS NOT A COPY OF THE [employer] PROGRESS NOTE. MTDOnesimo
== END ==
LOC: M PAIN 10:30
PROVIDERS: ATTEND Anesthesiology
DX: M47.816 Spondylosis without myelopathy or radiculopathy, lumbar region (principal); I12.9 Hypertensive chronic kidney disease with stage 1 through stage 4 chronic kidney disease, or unspecified chronic kidney disease; E78.5 Hyperlipidemia, unspecified; N32.81 Overactive bladder; F32.9 Major depressive disorder, single episode, unspecified; G40.909 Epilepsy, unspecified, not intractable, without status epilepticus; N18.9 Chronic kidney disease, unspecified; M25.562 Pain in left knee; Z96.643 Presence of artificial hip joint, bilateral; Z98.41 Cataract extraction status, right eye; Z98.42 Cataract extraction status, left eye; Z87.891 Personal history of nicotine dependence; Z79.82 Long term (current) use of aspirin; Z79.899 Other long term (current) drug therapy; Z91.030 Bee allergy status; Z91.013 Allergy to seafood; Z88.8 Allergy status to other drugs, medicaments and biological substances

== ENCOUNTER → 2018-08-28 | Outpatient (CLI) | payer OTHER ==
[2018-08-28 15:51] LABS: HEMATOCRIT 34.8 % (36.0-47.0); HEMOGLOBIN 11.5 g/dl (12.0-15.5); MEAN CORPUSCULAR HEMOGLOBIN 31.5 pg (27.0-33.0); MEAN CORPUSCULAR VOLUME 95.3 fl (80.0-96.0); PLATELET COUNT, AUTOMATED 142 10^3/uL (150-450); RED BLOOD COUNT 3.65 10^6/uL (4.00-5.40); WHITE BLOOD COUNT 7.2 10^3/uL (4.0-10.0)
[2018-08-28 16:04] LABS: ALT/SGPT < 6 U/L (12-78); BILIRUBIN,TOTAL 0.3 MG/DL (0.2-1.0); BLOOD UREA NITROGEN 32 MG/DL (7-18); CALCIUM LEVEL 8.8 MG/DL (8.8-10.2); CARBON DIOXIDE LEVEL 28 MEQ/L (21-32); CHLORIDE LEVEL 107 MEQ/L (98-107); CREATININE FOR GFR 2.23 MG/DL (0.55-1.30); GLOMERULAR FILTRATION RATE 23.6 (>45); GLUCOSE, FASTING 85 MG/DL (70-100); POTASSIUM SERUM 5.1 MEQ/L (3.5-5.1); SODIUM LEVEL 141 MEQ/L (136-145); TOTAL PROTEIN 7.1 GM/DL (6.4-8.2)
[2018-08-28 16:22] LABS: MALB URINE SIEMENS 46.2 MG/L; MAU/CREAT RATIO 42.3 MCG/MG (0.0-30.0)
[2018-08-28 16:57] LABS: APPEARANCE, URINE HAZY (CLEAR); BACTERIA, URINE AUTO 1+ (NEGATIVE); BILIRUBIN, URINE AUTO NEGATIVE (NEGATIVE); BLOOD, URINE BLOOD 3+ (NEGATIVE); COLOR, URINE YELLOW (YELLOW); GLUCOSE, URINE (UA) AUTO NEGATIVE (NEGATIVE); KETONE, URINE AUTO NEGATIVE (NEGATIVE); LEUKOCYTE ESTERASE, URINE AUTO TRACE (NEGATIVE); NITRITE, URINE AUTO NEGATIVE (NEGATIVE); PROTEIN, URINE AUTO 1+ mg/dL (NEGATIVE); RBC, URINE AUTO TNTC /HPF (0-3); SPECIFIC GRAVITY URINE AUTO 1.013 (1.002-1.035); SQUAMOUS EPITHELIAL CELL UR AU 0 /HPF (0-6); WBC, URINE AUTO 4 /HPF (0-3)
== END ==
LOC: M LRY 11:24
PROVIDERS: ATTEND Internal Medicine
DX: N18.3 Chronic kidney disease, stage 3 (moderate) (principal)

== ENCOUNTER → 2018-10-28 | Outpatient (CLI) | payer OTHER ==
--- NOTE | 2018-11-11 00:11 | ECWPNPC ---
PATIENT NAME: NILDA COLBY : 1955 GENDER: FEMALE VISIT DATE: 10/28/2018 DISCHARGE DATE: 10/28/181643 VISIT LOCKED DATE TIME: PHYSICIAN: ANA SANCHEZ MD RESOURCE: ANA SANCHEZ MD REASON FOR APPOINTMENT 1. LOW BACK HISTORY OF PRESENT ILLNESS HISTORY OF PRESENT ILLNESS: PAIN THE PATIENT DESCRIBES THE PAIN... 63 YEAR OLD FEMALE PATIENT WITH A HISTORY OF CHRONIC LOW BACK PAIN. THE PATIENT DESCRIBES THE PAIN ACHING, BURNING, SHARP, STABBING, AND INTERMITTENT WITH A PAIN SCORE OF 5-8/10 DEPENDING ON PHYSICAL ACTIVITY. THE PATIENT SAYS HER PAIN STARTS IN HER LOW BACK AND RADIATES INTO BOTH HIPS AND DOWN HER LEGS. THE PATIENT SAYS THAT HER LEFT SIDE HAS BEEN WORSE LATELY. THE PATIENT HAS A HISTORY OF VASCULAR NECROSIS AND SAYS HER HUMAN CAPITAL MANAGER TOLD HER SHE IS ABLE TO HAVE INJECTIONS WITH STEROIDS. PATIENT DENIES UNEXPLAINABLE WEIGHT LOSS, FEVER, CHILLS, NEW CHANGES ON HER URINARY OR BOWEL CONTROL. FALL RISK SCREENING: SCREENING : NO FALLS IN THE PAST YEAR. CURRENT MEDICATIONS TAKING AMMONIUM LACTATE 12 % CREAM 1 APPLICATION TO AFFECTED AREA OF BOTH FEET EXTERNALLY TWICE A DAY TAKING ACETAMINOPHEN EXTRA STRENGTH 500 MG TABLET 1 TABLET NEEDED ORALLY EVERY 6 HRS TAKING FISH OIL 1200 MG CAPSULE 4 CAPSULE ORALLY ONCE A DAY TAKING LUMIGAN 0.01 % SOLUTION 1 DROP INTO AFFECTED EYE IN THE EVENING OPHTHALMIC ONCE A DAY TAKING ALPHAGAN P TAKING VENTOLIN HFA 108 (90 BASE) MCG/ACT AEROSOL SOLUTION 2 PUFFS NEEDED INHALATION EVERY 4 HRS TAKING DULOXETINE HCL 30 MG CAPSULE DELAYED RELEASE PARTICLES 1 CAPSULE ORALLY DAILY TAKING FLONASE ALLERGY RELIEF 50 MCG/ACT SUSPENSION 1 SPRAY IN EACH NOSTRIL NASALLY BID TAKING PRAVASTATIN SODIUM 20 MG TABLET 1 TABLET ORALLY ONCE A DAY TAKING DIVALPROEX SODIUM 500 MG TABLET DELAYED RELEASE 1 TABLET ALONG WITH 250MG IN AM ORALLY TWICE A DAY FOR SEIZURES TAKING FLOVENT HFA 220 MCG/ACT AEROSOL 1 PUFF INHALATION TWICE A DAY TAKING FLUOCINOLONE ACETONIDE 0.025 % CREAM 1 APPLICATION TO TRUNK AND ARMS EXTERNALLY ONCE A DAY PRN TAKING OXYBUTYNIN CHLORIDE ER 10 MG TABLET EXTENDED RELEASE 24 HOUR 1 TABLET ORALLY ONCE A DAY TAKING DIVALPROEX SODIUM 250 MG TABLET DELAYED RELEASE 1 TABLET ORALLY QAM FOR SEIZURES TAKING HYDROXYZINE HCL 25 MG TABLET 1-2 TABS ORALLY TID PRN, NOTES: NONE RECENTLY TAKING TOPROL XL 25 MG TABLET EXTENDED RELEASE 24 HOUR 1 TABLET ORALLY ONCE A DAY TAKING STOOL SOFTENER 100 MG CAPSULE 1 CAPSULE NEEDED ORALLY ONCE A WEEK TAKING ASPIRIN 81 MG TABLET DELAYED RELEASE 1 TABLET ORALLY ONCE A DAY TAKING HOSPITAL BED(ADJUSTABLE) STANDARD _ DIRECTED _ DAILY ICD10 M25.551, M54.5, Z87.39 TAKING BLOOD PRESSURE KIT - KIT DIRECTED _ DAILY TAKING ZANTAC 150 MG TABLET 1 TABLET AT BEDTIME ORALLY ONCE A DAY, NOTES: NEEDED TAKING GABAPENTIN 300 MG CAPSULE 1 CAPSULE ORALLY DAILY MEDICATION LIST REVIEWED AND RECONCILED WITH THE PATIENT PAST MEDICAL HISTORY HYPERTENSION HYPERLIPIDEMIA OVERACTIVE BLADDER DEPRESSION ALLERGIES SEIZURE DISORDER LEG CRAMPS ALLERGY-INDUCED BRONCHOSPASM RSTAGE 3 KEDNEY DISEASE LEFT KNEE PAIN PANIC ATTACK ALLERGIES FRESH WATER FISH: HIVES: ALLERGY AMLODIPINE BESYLATE: LOWER EXTREMITY EDEMA: SIDE EFFECTS HORSES/BEES: HIVES: ALLERGY SURGICAL HISTORY LEFT HIP REPLACEMENT RIGHT HIP REPLACEMENT TUBAL LIGATION HYSTERECTOMY & BSO 1997 FOOT SURGERY X 2 ON EACH FOOT BREAST BIOPSY EACH BREAST CATARACT-BILATERAL COLONOSCOPY (NARINDER DUMONT) 2011 FAMILY HISTORY FATHER: , LUNG CANCER, DIAGNOSED WITH CANCER MOTHER: , OVARIAN CANCER, DIAGNOSED WITH CANCER SIBLINGS: ALIVE SON(S): ALIVE 1 BROTHER(S) . 3 SON(S) . SOCIAL HISTORY GENERAL: TOBACCO USE ARE YOU A:FORMER SMOKER 2007 QUIT HOW LONG HAS IT BEEN SINCE YOU LAST SMOKED?> 10 YEARS LUNG CANCER SCREENING SMOKING STATUS: FORMER SMOKER. BMI CARE GOAL FOLLOW-UP ABOVE NORMAL BMI FOLLOW-UPDIETARY MANAGEMENT EDUCATION, GUIDANCE, AND COUNSELING ALCOHOL SCREENING DID YOU HAVE A DRINK CONTAINING ALCOHOL IN THE PAST YEAR?YES HOW MANY DRINKS DID YOU HAVE ON A TYPICAL DAY WHEN YOU WERE DRINKING IN THE PAST YEAR?1 OR 2 (0 POINTS) HOW OFTEN DID YOU HAVE A DRINK CONTAINING ALCOHOL IN THE PAST YEAR?MONTHLY OR LESS (1 POINT) POINTS1 INTERPRETATIONNEGATIVE RECREATIONAL DRUG USE DRUG USE?NO CAFFEINE CAFFEINE USE?YES DIET COKE SEXUAL HX HAD SEX IN THE LAST 12 MONTHS (VAGINAL, ORAL, OR ANAL)?NO HAVE YOU EVER HAD AN STD?NO HIV / HEP-C SCREENING HIV TEST OFFERED TO PATIENT:YES DATE OFFERED:08/06/2018 TEST ACCEPTED:NO REASON:PATIENT DECLINED BROCHURE PROVIDED TO PATIENTYES HEP-C TEST OFFERED TO PATIENT:YES DATE OFFERED:08/06/2018 TEST ACCEPTED:NO REASON:PATIENT DECLINED [id number] DENOMINATIONAL LANGUAGE LANGUAGES SPOKEN:MACEDONIAN EDUCATION LEVEL OF EDUCATION:NOT FINISHED COLLEGE LEARNING BARRIERS / SPECIAL NEEDS CHANGE FROM LAST VISIT?NO BARRIERS TO LEARNING?NO HEARING IMPAIRED?NO VISION IMPAIRED?NO COGNITIVELY IMPAIRED?NO READINESS TO LEARN?YES LEARNING PREFERENCES?NO LEARNING CAPABILITIES PRESENT?YES EMOTIONAL BARRIERS?NO SPECIAL DEVICES?NO SOLE STITCHER HAND NEEDED?NO DOMESTIC VIOLENCE DO YOU FEEL SAFE IN YOUR ENVIRONMENT?YES 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 DIET: REGULAR. EXERCISE: WALKS. MARITAL STATUS: . OTHERS AT HOME: NONE. PAIN CLINIC PFS, CLERGY, PUBLIC HEALTH REFERRALS PFS REFERRAL NEEDED?NO CLERGY REFERRAL NEEDED?NO PUBLIC HEALTH REFERRAL NEEDED?NO WAS THE PROVIDER NOTIFIED OF ANY PERTINENT INFO?NO HAS THE PATIENT BEEN EDUCATED REGARDING HIS/HER PLAN OF CARE?YES HAS THE PATIENT BEEN EDUCATED REGARDING PAIN, THE RISK FOR PAIN, THE IMPORTANCE OF EFFECTIVE PAIN MANAGEMENT, AND THE PAIN ASSESSMENT PROCESS?YES HOUSING: RENTS APARTMENT. ADVANCE DIRECTIVE ADVANCE DIRECTIVE DISCUSSED WITH PATIENT:YES HCP INFORMATION GIVEN, DECLINED ASSISTANCE IN FILLING OUT. REVIEWED WITH PT 07/04/18 1529 BVREVIEWED WITH PATIENT 10/28/18 1529 JS. HOSPITALIZATION/MAJOR DIAGNOSTIC PROCEDURE SAMRA 01/2018 REVIEW OF SYSTEMS REVIEWED BY: PROVIDER: ANA SANCHEZ MD . CONSTITUTIONAL: ANY CHANGE IN YOUR MEDICAL CONDITION? NO . CHILLS NO . FEVER NO . INFECTION: DO YOU HAVE NEW INFECTIONS? NO . DO YOU HAVE HISTORY OF MRSA? NO . MUSCULOSKELETAL: ANY NEW PATTERNS OF PAIN OR NUMBNESS? YES, STATES NUMBNESS TO FEET AND LEGS ON OCCASSION. . GASTROENTEROLOGY: ANY NEW CHANGE IN BOWEL CONTROL? NO . GENITOURINARY: ANY NEW CHANGE IN BLADDER CONTROL? NO . IS THERE A CHANCE YOU COULD BE ? NO . HEMATOLOGY/LYMPH: DO YOU TAKE ANY BLOOD THINNERS? (FOR EXAMPLE- COUMADIN, PLAVIX, AGGRENOX, PLATEL, PRADAXA, OR XARELTO) NO . WHEN WAS YOUR LAST DOSE? DATE: TIME: . NEUROLOGY: HAVE YOU FALLEN IN THE PAST 12 MONTHS? YES, STATES FALL IN [place] IN DRIVEWAY, WENT TO [facility] AFTER HITTING HER HEAD ON THE BLACKTOP. IMAGING TAKEN, LEFT WITH KNEE BRACE, THINKS MAYBE SHE HAD A CONCUSSION . ANY NEW EXTREMITY NUMBNESS OR WEAKNESS? YES, NEW NUMBNESS AND WEAKNESS TO LEFT LEG, ALMOST MAKING HER FALL AT TIMES . CARDIOLOGY: DO YOU HAVE A PACEMAKER OR DEFIBRILLATOR? NO . RESPIRATORY: HAVE YOU BEEN SICK IN THE PAST WEEK? YES, STATES SHE HAD A HEAD COLD . FEVER YES . FLU LIKE SYMPTOMS? NO . COUGH NO . INTEGUMENTARY: DO YOU HAVE ANY RASHES OR OPEN SORES? NO . ALLERGIC/IMMUNO: ARE YOU ALLERGIC TO IV DYE? NO . ANY NEW ALLERGIES? NO . PSYCHIATRIC: DO YOU HAVE THOUGHTS OF HURTING YOURSELF OR SOMEONE ELSE? NO . ARE YOU ABUSED, NEGLECTED, OR IN AN UNSAFE ENVIRONMENT? NO . ENDOCRINOLOGY: ARE YOU DIABETIC? NO . OTHER: DO YOU NEED ANY PRESCRIPTIONS? NO . IF YES, PLEASE LIST: ____ . ANY NEW PROBLEMS WITH YOUR MEDICATIONS? NO . WHEN DID YOU LAST EAT? ____ . WHEN DID YOU LAST DRINK? ____ . WHAT DID YOU LAST DRINK? ____ . NAME OF PERSON DRIVING YOU HOME? ____ . DO YOU HAVE ANY OTHER QUESTIONS OR CONCERNS NO . VITAL SIGNS WT 168 LBS, HT 67 IN, BMI 26.31 INDEX, BP 135/71 MM HG, HR 62 /MIN, RR 18 /MIN, TEMP 97.0 F, OXYGEN SAT % 99%, SAFE IN ENV? (Y/N) YES, NA INITIALS AW 1513, REVIEWED BY: ADAM. EXAMINATION GENERAL EXAMINATION: PATIENT IS ALERT O X 3 AND COOPERATIVE. TENDERNESS IN THE LOW BACK AREA. LEFT LEG IS WEAKER AT EXTENSION AND FLEXION. STRAIGHT LEG RAISE OF THE LEFT LEG IS POSITIVE AT 40 DEGREES FOR RADICULOPATHY. MRI OF THE LUMBAR SPINE DONE ON 06/15/2018 SHOWS STENOSIS AND BULGING DISCS AT MULTIPLE LEVELS. ASSESSMENTS INTERVERTEBRAL DISC DISORDER WITH RADICULOPATHY OF LUMBAR REGION - M51.16 (PRIMARY) TREATMENT INTERVERTEBRAL DISC DISORDER WITH RADICULOPATHY OF LUMBAR REGION CLINICAL NOTES: WE DISCUSSED SEVERAL ISSUES WITH MRS. COLBY'S PAIN MANAGEMENT CASE. DUE TO THE LUMBAR RADICULOPATHY, I WOULD LIKE TO MOVE FORWARD WITH A LUMBAR EPIDURAL STEROID INJECTION AT THIS TIME. WE DISCUSSED THE BENEFITS, RISKS, AND ALTERNATIVES OF THE INJECTION AND THE PATIENT WOULD LIKE TO PROCEED. I WOULD LIKE TO SPEAK WITH THE PATIENT'S ORTHOPEDIC SURGEON BEFORE THE INJECTION. THE PATIENT WILL FOLLOW UP IN 3 WEEKS. INSTRUCTIONS WERE GIVEN, QUESTIONS WERE ANSWERED, PATIENT REPORTS UNDERSTANDING AND AGREES WITH THE PLAN. I, SAMANTHA WILLIAM, DOCUMENTED THE ABOVE INFORMATION ACTING A SCRIBE FOR DR. SANCHEZ. I HAVE REVIEWED THE ABOVE DOCUMENT, WRITTEN BY SAMANTHA SKINNERIBLiyah AND I VERIFY THAT IT IS ACCURATE. PROCEDURE CODES FA211 ESTABILISHED PATIENT [facility] FACILITY CHARGE G8427 CURRENT MEDS W/DOSAGES DOCUMENTED G8730 PAIN ASSESS POS TOOL F/U PLAN DOC DISPOSITION & COMMUNICATION FOLLOW UP 3 WEEKS ELECTRONICALLY SIGNED BY ANA SANCHEZ MD, MD ON 11/09/2018 AT 07:21 PM EDT DISCLAIMER : THIS IS A VISIT SUMMARY EXTRACTED FROM THE [employer] CHART. IT IS NOT A COPY OF THE [employer] PROGRESS NOTE. MTDD
== END ==
LOC: M PAIN 13:45
PROVIDERS: ATTEND Anesthesiology
DX: M51.16 Intervertebral disc disorders with radiculopathy, lumbar region (principal); G89.29 Other chronic pain; I12.9 Hypertensive chronic kidney disease with stage 1 through stage 4 chronic kidney disease, or unspecified chronic kidney disease; N18.3 Chronic kidney disease, stage 3 (moderate); E78.5 Hyperlipidemia, unspecified; R56.9 Unspecified convulsions; J30.89 Other allergic rhinitis; Z79.82 Long term (current) use of aspirin; Z79.899 Other long term (current) drug therapy; Z88.8 Allergy status to other drugs, medicaments and biological substances; Z91.030 Bee allergy status; Z91.018 Allergy to other foods; Z87.891 Personal history of nicotine dependence; Z86.59 Personal history of other mental and behavioral disorders; Z96.643 Presence of artificial hip joint, bilateral

== ENCOUNTER → 2018-11-15 | Outpatient (CLI) | payer OTHER ==
--- NOTE | 2018-12-01 23:38 | ECWPNPC ---
PATIENT NAME: NILDA COLBY : 1955 GENDER: FEMALE VISIT DATE: 11/15/2018 DISCHARGE DATE: 11/15/18 1158 VISIT LOCKED DATE TIME: PHYSICIAN: ANA SANCHEZ MD RESOURCE: ANA SANCHEZ MD REASON FOR APPOINTMENT 1. LOW BACK HISTORY OF PRESENT ILLNESS HISTORY OF PRESENT ILLNESS: PAIN THE PATIENT DESCRIBES THE PAIN... 63 YEAR OLD FEMALE WITH A HISTORY OF CHRONIC LOW BACK PAIN. THE PATIENT DESCRIBES THE PAIN ACHING, BURNING, TENDER, SHARP AND STABBING WITH A PAIN SCORE OF 6-9/10 DEPENDING ON PHYSICAL ACTIVITY. PATIENT DESCRIBES THE PAIN INTERMITTENT AND BRIEF AND OCCURS MOSTLY DURING THE DAY. THE PATIENT STATES THE PAIN STARTS IN HER LOW BACK AND RADIATES TO HER LEFT LEG. THE PATIENT HAS A HISTORY OF VASCULAR NECROSIS AND IS FOLLOWED BY A WASH PLANT OPERATOR FOR HER CONDITION. PATIENT DENIES UNEXPLAINABLE WEIGHT LOSS, FEVER, CHILLS, NEW CHANGES ON HER URINARY OR BOWEL CONTROL. FALL RISK SCREENING: SCREENING : NO FALLS IN THE PAST YEAR. CURRENT MEDICATIONS TAKING AMMONIUM LACTATE 12 % CREAM 1 APPLICATION TO AFFECTED AREA OF BOTH FEET EXTERNALLY TWICE A DAY TAKING ACETAMINOPHEN EXTRA STRENGTH 500 MG TABLET 1 TABLET NEEDED ORALLY EVERY 6 HRS TAKING FISH OIL 1200 MG CAPSULE 4 CAPSULE ORALLY ONCE A DAY TAKING LUMIGAN 0.01 % SOLUTION 1 DROP INTO AFFECTED EYE IN THE EVENING OPHTHALMIC ONCE A DAY TAKING ALPHAGAN P TAKING VENTOLIN HFA 108 (90 BASE) MCG/ACT AEROSOL SOLUTION 2 PUFFS NEEDED INHALATION EVERY 4 HRS TAKING DULOXETINE HCL 30 MG CAPSULE DELAYED RELEASE PARTICLES 1 CAPSULE ORALLY DAILY TAKING FLONASE ALLERGY RELIEF 50 MCG/ACT SUSPENSION 1 SPRAY IN EACH NOSTRIL NASALLY BID TAKING PRAVASTATIN SODIUM 20 MG TABLET 1 TABLET ORALLY ONCE A DAY TAKING DIVALPROEX SODIUM 500 MG TABLET DELAYED RELEASE 1 TABLET ALONG WITH 250MG IN AM ORALLY TWICE A DAY FOR SEIZURES TAKING FLOVENT HFA 220 MCG/ACT AEROSOL 1 PUFF INHALATION TWICE A DAY TAKING FLUOCINOLONE ACETONIDE 0.025 % CREAM 1 APPLICATION TO TRUNK AND ARMS EXTERNALLY ONCE A DAY PRN TAKING OXYBUTYNIN CHLORIDE ER 10 MG TABLET EXTENDED RELEASE 24 HOUR 1 TABLET ORALLY ONCE A DAY TAKING DIVALPROEX SODIUM 250 MG TABLET DELAYED RELEASE 1 TABLET ORALLY QAM FOR SEIZURES TAKING HYDROXYZINE HCL 25 MG TABLET 1-2 TABS ORALLY TID PRN, NOTES: NONE RECENTLY TAKING TOPROL XL 25 MG TABLET EXTENDED RELEASE 24 HOUR 1 TABLET ORALLY ONCE A DAY TAKING STOOL SOFTENER 100 MG CAPSULE 1 CAPSULE NEEDED ORALLY ONCE A WEEK TAKING ASPIRIN 81 MG TABLET DELAYED RELEASE 1 TABLET ORALLY ONCE A DAY TAKING HOSPITAL BED(ADJUSTABLE) STANDARD _ DIRECTED _ DAILY ICD10 M25.551, M54.5, Z87.39 TAKING BLOOD PRESSURE KIT - KIT DIRECTED _ DAILY TAKING ZANTAC 150 MG TABLET 1 TABLET AT BEDTIME ORALLY ONCE A DAY, NOTES: NEEDED TAKING GABAPENTIN 300 MG CAPSULE 1 CAPSULE ORALLY DAILY MEDICATION LIST REVIEWED AND RECONCILED WITH THE PATIENT PAST MEDICAL HISTORY HYPERTENSION HYPERLIPIDEMIA OVERACTIVE BLADDER DEPRESSION ALLERGIES SEIZURE DISORDER LEG CRAMPS ALLERGY-INDUCED BRONCHOSPASM RSTAGE 3 KEDNEY DISEASE LEFT KNEE PAIN PANIC ATTACK ALLERGIES FRESH WATER FISH: HIVES - ALLERGY AMLODIPINE BESYLATE: LOWER EXTREMITY EDEMA - SIDE EFFECTS HORSES/BEES: HIVES - ALLERGY SURGICAL HISTORY LEFT HIP REPLACEMENT RIGHT HIP REPLACEMENT TUBAL LIGATION HYSTERECTOMY & BSO 1997 FOOT SURGERY X 2 ON EACH FOOT BREAST BIOPSY EACH BREAST CATARACT-BILATERAL COLONOSCOPY (NARINDER DUMONT) 2011 FAMILY HISTORY FATHER: , LUNG CANCER, DIAGNOSED WITH CANCER MOTHER: , OVARIAN CANCER, CANCER SIBLINGS: ALIVE SON(S): ALIVE 1 BROTHER(S) . 3 SON(S) . SOCIAL HISTORY GENERAL: TOBACCO USE ARE YOU A:FORMER SMOKER 2007 QUIT HOW LONG HAS IT BEEN SINCE YOU LAST SMOKED?> 10 YEARS LATEX QUESTIONNAIRE LATEX ALLERGY : HAVE YOU EVER DEVELOPED ANY TYPE OF REACTION AFTER HANDLING LATEX PRODUCTS SUCH RUBBER GLOVES, CONDOMS, DIAPHRAGMS, BALLOONS, SOCKS, OR UNDERWEAR?NO LATEX ALLERGY : HAVE YOU EVER DEVELOPED ANY TYPE OF REACTION DURING OR AFTER DENTAL APPOINTMENT, VAGINAL/RECTAL EXAMINATION, SURGICAL PROCEDURE, OR ANY OTHER EXPOSURE?NO LATEX RISK : HAVE YOU EVER HAD ANY DIFFICULTY BREATHING OR HIVES AFTER EATING OR HANDLING ANY FRUITS, OR VEGETABLES; SUCH KIWI, BANANAS, STONE FRUITS, OR CHESTNUTSNO LATEX RISK : DO YOU HAVE A PREVIOUS PERSONAL HISTORY OF MORE THAN NINE SURGERIES, SPINA BIFIDA, OR REPEATED CATHERTIZATIONS? NO LATEX RISK : ARE YOU FREQUENTLY EXPOSED TO LATEX PRODUCTS IN YOUR OCCUPATION?NO DATE ASKED : 11/15/2018 LUNG CANCER SCREENING SMOKING STATUS: FORMER SMOKER. BMI CARE GOAL FOLLOW-UP ABOVE NORMAL BMI FOLLOW-UPDIETARY MANAGEMENT EDUCATION, GUIDANCE, AND COUNSELING ALCOHOL SCREENING DID YOU HAVE A DRINK CONTAINING ALCOHOL IN THE PAST YEAR?YES HOW MANY DRINKS DID YOU HAVE ON A TYPICAL DAY WHEN YOU WERE DRINKING IN THE PAST YEAR?1 OR 2 (0 POINTS) HOW OFTEN DID YOU HAVE A DRINK CONTAINING ALCOHOL IN THE PAST YEAR?MONTHLY OR LESS (1 POINT) POINTS1 INTERPRETATIONNEGATIVE RECREATIONAL DRUG USE DRUG USE?NO CAFFEINE CAFFEINE USE?YES DIET COKE SEXUAL HX HAD SEX IN THE LAST 12 MONTHS (VAGINAL, ORAL, OR ANAL)?NO HAVE YOU EVER HAD AN STD?NO HIV / HEP-C SCREENING HIV TEST OFFERED TO PATIENT:YES DATE OFFERED:08/06/2018 TEST ACCEPTED:NO HEP-C TEST OFFERED TO PATIENT:YES DATE OFFERED:08/06/2018 REASON:PATIENT DECLINED TEST ACCEPTED:NO REASON:PATIENT DECLINED BROCHURE PROVIDED TO PATIENTYES [employer] [id number] PENTECOSTALISM LANGUAGE LANGUAGES SPOKEN:[place] EDUCATION LEVEL OF EDUCATION:NOT FINISHED COLLEGE LEARNING BARRIERS / SPECIAL NEEDS CHANGE FROM LAST VISIT?NO BARRIERS TO LEARNING?NO HEARING IMPAIRED?NO VISION IMPAIRED?NO COGNITIVELY IMPAIRED?NO READINESS TO LEARN?YES LEARNING PREFERENCES?NO LEARNING CAPABILITIES PRESENT?YES EMOTIONAL BARRIERS?NO SPECIAL DEVICES?NO SOURCING CONSULTANT NEEDED?NO DOMESTIC VIOLENCE DO YOU FEEL SAFE IN YOUR ENVIRONMENT?YES 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 DIET: REGULAR. EXERCISE: WALKS. MARITAL STATUS: . OTHERS AT HOME: NONE. PAIN CLINIC PFS, CLERGY, PUBLIC HEALTH REFERRALS PFS REFERRAL NEEDED?NO CLERGY REFERRAL NEEDED?NO PUBLIC HEALTH REFERRAL NEEDED?NO WAS THE PROVIDER NOTIFIED OF ANY PERTINENT INFO?NO HAS THE PATIENT BEEN EDUCATED REGARDING HIS/HER PLAN OF CARE?YES HAS THE PATIENT BEEN EDUCATED REGARDING PAIN, THE RISK FOR PAIN, THE IMPORTANCE OF EFFECTIVE PAIN MANAGEMENT, AND THE PAIN ASSESSMENT PROCESS?YES HOUSING: RENTS APARTMENT. ADVANCE DIRECTIVE ADVANCE DIRECTIVE DISCUSSED WITH PATIENT:YES HCP INFORMATION GIVEN, DECLINED ASSISTANCE IN FILLING OUT. REVIEWED WITH PT 07/04/18 1529 BVREVIEWED WITH PATIENT 10/28/18 1529 JSREVIEWED WITH PATIENT 11/15/18 1045 LAS. HOSPITALIZATION/MAJOR DIAGNOSTIC PROCEDURE SAMRA 01/2018 REVIEW OF SYSTEMS REVIEWED BY: PROVIDER: ANA SANCHEZ MD . CONSTITUTIONAL: ANY CHANGE IN YOUR MEDICAL CONDITION? NO . CHILLS NO . FEVER NO . INFECTION: DO YOU HAVE NEW INFECTIONS? NO . DO YOU HAVE HISTORY OF MRSA? NO . MUSCULOSKELETAL: ANY NEW PATTERNS OF PAIN OR NUMBNESS? YES PT REPORTS HER LEFT LEG HAS BEEN GIVING OUT MORE FREQUENTLY. . GASTROENTEROLOGY: ANY NEW CHANGE IN BOWEL CONTROL? NO . GENITOURINARY: ANY NEW CHANGE IN BLADDER CONTROL? NO . IS THERE A CHANCE YOU COULD BE ? NO . HEMATOLOGY/LYMPH: DO YOU TAKE ANY BLOOD THINNERS? (FOR EXAMPLE- COUMADIN, PLAVIX, AGGRENOX, PLATEL, PRADAXA, OR XARELTO) NO . WHEN WAS YOUR LAST DOSE? DATE: TIME: . NEUROLOGY: HAVE YOU FALLEN IN THE PAST 12 MONTHS? PT REPORTS SHE SLIPPED AND FELL ON THE ICE, WENT TO ED AT [facility], XRAYS WERE NEGATIVE PER PT. . ANY NEW EXTREMITY NUMBNESS OR WEAKNESS? NO . CARDIOLOGY: DO YOU HAVE A PACEMAKER OR DEFIBRILLATOR? NO . RESPIRATORY: HAVE YOU BEEN SICK IN THE PAST WEEK? NO . FEVER NO . FLU LIKE SYMPTOMS? NO . COUGH NO . INTEGUMENTARY: DO YOU HAVE ANY RASHES OR OPEN SORES? NO . ALLERGIC/IMMUNO: ARE YOU ALLERGIC TO IV DYE? NO . ANY NEW ALLERGIES? NO . PSYCHIATRIC: DO YOU HAVE THOUGHTS OF HURTING YOURSELF OR SOMEONE ELSE? NO . ARE YOU ABUSED, NEGLECTED, OR IN AN UNSAFE ENVIRONMENT? NO . ENDOCRINOLOGY: ARE YOU DIABETIC? NO . OTHER: DO YOU NEED ANY PRESCRIPTIONS? NO . IF YES, PLEASE LIST: ____ . ANY NEW PROBLEMS WITH YOUR MEDICATIONS? NO . WHEN DID YOU LAST EAT? ____ . WHEN DID YOU LAST DRINK? ____ . WHAT DID YOU LAST DRINK? ____ . NAME OF PERSON DRIVING YOU HOME? ____ . DO YOU HAVE ANY OTHER QUESTIONS OR CONCERNS PT IS WONDERING ABOUT THE DELAY IN DISCUSSING HER CASE WITH HER ORTHOPEDIC SURGEON. ALSO IF THERE IS ANY PAIN MED SHE CAN TAKE FOR RELIEF, SHE IS UNABLE TO DO HER HOUSEWORK, ETC. . VITAL SIGNS WT 166.2 LBS, HT 67 IN, BMI 26.03 INDEX, BP 117/57 MM HG, HR 62 /MIN, RR 18 /MIN, TEMP 97.6 F, OXYGEN SAT % 95%, SAFE IN ENV? (Y/N) YES, REVIEWED BY: SHAUN. EXAMINATION GENERAL EXAMINATION: PATIENT IS ALERT O X 3 AND COOPERATIVE. TENDERNESS IN THE LOW BACK AREA. LEFT LEG WEAKER AT EXTENSION AND FLEXION. STRAIGHT LEG RAISE OF THE LEFT LEG IS POSITIVE AT 40 DEGREES FOR RADICULOPATHY. MRI DONE 06/15/18 SHOWS STENOSIS AND BULGING DISCS AT MULTIPLE LEVELS. ASSESSMENTS INTERVERTEBRAL DISC DISORDER WITH RADICULOPATHY OF LUMBAR REGION - M51.16 (PRIMARY) TREATMENT INTERVERTEBRAL DISC DISORDER WITH RADICULOPATHY OF LUMBAR REGION CLINICAL NOTES: WE DISCUSSED SEVERAL ISSUES WITH MRS. COLBY'S PAIN MANAGEMENT CASE. DUE TO THE LUMBAR RADICULOPATHY, I WOULD LIKE TO MOVE FORWARD WITH A LUMBAR EPIDURAL STEROID INJECTION AT THIS TIME. WE DISCUSSED THE BENEFITS, RISKS AND ALTERNATIVES OF THE INJECTION AND THE PATIENT WOULD LIKE TO PROCEED. THE PATIENT HAS BEEN CLEARED FOR STEROID INJECTIONS BY HER WASH PLANT OPERATOR. WE WILL REQUEST AUTHORIZATION FOR INJECTION AND WILL SCHEDULE AFTER AUTHORIZATION OBTAINED. I WILL DISCUSS CASE WITH PATIENT'S ORTHOPEDIC DOCTOR AFTER INJECTION DONE. PATIENT WILL FOLLOW UP WITH ME 6 WEEKS AFTER PROCEDURE. INSTRUCTIONS WERE GIVEN, QUESTIONS WERE ANSWERED, PATIENT REPORTS UNDERSTANDING AND AGREES WITH THE PLAN. I, MOHAN HAWKINS, DOCUMENTED THE ABOVE INFORMATION ACTING A SCRIBE FOR DR. SANCHEZ. I HAVE REVIEWED THE ABOVE DOCUMENT, WRITTEN BY MOHAN SKINNERIBLiyah AND I VERIFY THAT IT IS ACCURATE. OTHERS NOTES: WHAT IS LUMBAR EPIDURAL INJECTION? MATERIAL WAS PRINTED,LUMBAR EPIDURAL INJECTION: YOUR PROCEDURE MATERIAL WAS PRINTED. PROCEDURE CODES FA211 ESTABILISHED PATIENT [facility] CHARGE G8427 CURRENT MEDS W/DOSAGES DOCUMENTED G8730 PAIN ASSESS POS TOOL F/U PLAN DOC DISPOSITION & COMMUNICATION ELECTRONICALLY SIGNED BY ANA SANCHEZ MD, MD ON 12/01/2018 AT 04:08 PM EDT DISCLAIMER : THIS IS A VISIT SUMMARY EXTRACTED FROM THE [employer] CHART. IT IS NOT A COPY OF THE [employer] PROGRESS NOTE. [email or web address]
== END ==
LOC: M PAIN 10:15
PROVIDERS: ATTEND Anesthesiology
DX: M51.16 Intervertebral disc disorders with radiculopathy, lumbar region (principal); Z79.82 Long term (current) use of aspirin; Z79.899 Other long term (current) drug therapy; Z87.891 Personal history of nicotine dependence; Z91.018 Allergy to other foods; Z88.8 Allergy status to other drugs, medicaments and biological substances; Z91.030 Bee allergy status; Z91.09 Other allergy status, other than to drugs and biological substances

== ENCOUNTER → 2018-11-22 | Outpatient (CLI) | payer OTHER ==
[2018-11-22 17:07] LABS: ALBUMIN 3.5 GM/DL (3.2-5.2); BILIRUBIN,TOTAL 0.4 MG/DL (0.2-1.0); CALCIUM LEVEL 9.3 MG/DL (8.8-10.2); CREATININE FOR GFR 2.09 MG/DL (0.55-1.30); GLOMERULAR FILTRATION RATE 25.4 (>45); POTASSIUM SERUM 4.6 MEQ/L (3.5-5.1); TOTAL PROTEIN 7.7 GM/DL (6.4-8.2)
[2018-11-22 17:27] LABS: HEMATOCRIT 38.6 % (36.0-47.0); MEAN CORPUSCULAR HEMOGLOBIN 31.9 pg (27.0-33.0); MEAN CORPUSCULAR HGB CONC 33.7 g/dl (32.0-36.5); MEAN CORPUSCULAR VOLUME 94.6 fl (80.0-96.0); PLATELET COUNT, AUTOMATED 269 10^3/uL (150-450); RED BLOOD COUNT 4.08 10^6/uL (4.00-5.40)
== END ==
LOC: M LRY 10:33
PROVIDERS: ATTEND Internal Medicine
DX: N18.3 Chronic kidney disease, stage 3 (moderate) (principal)

== ENCOUNTER → 2018-12-19 | Outpatient (REF) | payer OTHER ==
[2018-12-19 12:05] LABS: BASO % 0.4 % (0.0-1.0); EOS # 0.3 10^3/uL (0.0-0.50); EOS % 3.1 % (0.0-3.0); HEMATOCRIT 37.4 % (36.0-47.0); HEMOGLOBIN 12.2 g/dl (12.0-15.5); LYMPH # 3.9 10^3/uL (1.5-4.5); LYMPH % 47.1 % (24.0-44.0); MEAN CORPUSCULAR HEMOGLOBIN 30.9 pg (27.0-33.0); MEAN CORPUSCULAR HGB CONC 32.6 g/dl (32.0-36.5); MEAN CORPUSCULAR VOLUME 94.7 fl (80.0-96.0); MONO # 0.9 10^3/uL (0.0-0.8); MONO % 10.7 % (0.0-5.0); NEUTROPHILS # 3.2 10^3/uL (1.8-7.7); NEUTROPHILS % 38.3 % (36.0-66.0); PLATELET COUNT, AUTOMATED 143 10^3/uL (150-450); RED BLOOD COUNT 3.95 10^6/uL (4.00-5.40); WHITE BLOOD COUNT 8.3 10^3/uL (4.0-10.0)
[2018-12-19 12:35] LABS: CALCIUM LEVEL 8.9 MG/DL (8.8-10.2); CREATININE FOR GFR 1.77 MG/DL (0.55-1.30); FOLATE 5.2 NG/ML; GLOMERULAR FILTRATION RATE 30.7 (>45); THYROID STIMULATING HORMONE 8.31 uIU/ML (0.358-3.740)
== END ==
LOC: M SFHCLERA 08:48
PROVIDERS: ATTEND Family Medicine
DX: R26.81 Unsteadiness on feet (principal)

== ENCOUNTER → 2018-12-27 | Outpatient (REF) | payer OTHER | LOC: M SFHCLERA 10:46 | PROVIDERS: ATTEND Physician Assistant | DX: R10.30 Lower abdominal pain, unspecified (principal) ==

== ENCOUNTER → 2019-01-02 | Outpatient (REF) | payer OTHER ==
[2019-01-02 12:24] LABS: FREE T4 0.85 NG/DL (0.76-1.46); THYROID STIMULATING HORMONE 4.9 uIU/ML (0.358-3.740)
== END ==
LOC: M SFHCLERA 09:41
PROVIDERS: ATTEND Family Medicine
DX: R79.89 Other specified abnormal findings of blood chemistry (principal)

== ENCOUNTER 2019-01-28 18:11 | Inpatient (IN) | payer OTHER ==
[~2019-01-28] VITALS: Ht 170.2 cm; Wt 72.7 kg
[2019-01-28] MEDS ORDERED: LASI20TA3 PO (18:41)
[2019-01-28] MEDS ORDERED: METO1TAB32 PO ×2 (18:41→23:42)
[2019-01-28] MEDS ORDERED: GABA-843 PO (18:41)
[2019-01-28 19:10] LABS: BASO % 0.2 % (0.0-1.0); EOS % 0.2 % (0.0-3.0); HEMATOCRIT 30.4 % (36.0-47.0); HEMOGLOBIN 10.3 g/dl (12.0-15.5); LYMPH # 2.8 10^3/uL (1.5-4.5); LYMPH % 33.5 % (24.0-44.0); MEAN CORPUSCULAR HEMOGLOBIN 32.7 pg (27.0-33.0); MEAN CORPUSCULAR HGB CONC 33.9 g/dl (32.0-36.5); MEAN CORPUSCULAR VOLUME 96.5 fl (80.0-96.0); MONO # 0.8 10^3/uL (0.0-0.8); MONO % 9.8 % (0.0-5.0); NEUTROPHILS # 4.7 10^3/uL (1.8-7.7); NEUTROPHILS % 55.7 % (36.0-66.0); PLATELET COUNT, AUTOMATED 141 10^3/uL (150-450); RED BLOOD COUNT 3.15 10^6/uL (4.00-5.40); WHITE BLOOD COUNT 8.5 10^3/uL (4.0-10.0)
[2019-01-28 19:43] LABS: ALBUMIN 2.7 GM/DL (3.2-5.2); ALT/SGPT 9 U/L (12-78); BILIRUBIN,DIRECT < 0.1 MG/DL (0.0-0.2); BILIRUBIN,TOTAL 0.1 MG/DL (0.2-1.0); BLOOD UREA NITROGEN 102 MG/DL (7-18); CALCIUM LEVEL 8.9 MG/DL (8.8-10.2); CARBON DIOXIDE LEVEL 26 MEQ/L (21-32); CHLORIDE LEVEL 109 MEQ/L (98-107); CREATININE FOR GFR 2.58 MG/DL (0.55-1.30); GLOMERULAR FILTRATION RATE 19.9 (>45); GLUCOSE, FASTING 95 MG/DL (70-100); LIPASE 149 U/L (73-393); POTASSIUM SERUM 4.4 MEQ/L (3.5-5.1); SODIUM LEVEL 144 MEQ/L (136-145); TOTAL PROTEIN 6.5 GM/DL (6.4-8.2)
[2019-01-28] MEDS: FLUTICASONE HFA 220 MCG 12 GM INHALER (FLOVENT) INH SCH (20:00)
[2019-01-28 20:30] LABS: ETHYL ALCOHOL (ETHANOL) < 0.003 % (0.000-0.010); VALPROIC ACID (DEPAKOTE) 71.8 UG/ML (50.0-100.0)
[2019-01-28 20:38] LABS: PROLACTIN 12.8 NG/ML
[2019-01-28 20:59] LABS: INR 0.96; PROTHROMBIN TIME 12.9 SECONDS (12.1-14.4)
[2019-01-28] MEDS: BRIMONIDINE 0.1% OPHTH SOLN 5 ML OU SCH (21:00)
--- NOTE | 2019-01-28 21:03 | REPVR ---
EXAM: CT Head Without Contrast EXAM DATE/TIME: 01/28/2019 8:08 PM CLINICAL HISTORY: 63 years old, female; Signs and symptoms; Altered mental status/memory loss; Confusion or disorientation; Additional info: AMS TECHNIQUE: Imaging protocol: Axial computed tomography images of the head without contrast. Radiation optimization: All CT scans at this facility use at least one of these dose optimization techniques: automated exposure control; mA and/or kV adjustment per patient size (includes targeted exams where dose is matched to clinical indication); or iterative reconstruction. COMPARISON: No relevant prior studies available. FINDINGS: Brain: There is generalized cortical and cerebellar atrophy. No hemorrhage. Minimal low-density in the periventricular white matter. Ventricles: Normal. No ventriculomegaly. Bones/joints: There is hyperostosis frontalis interna. Sinuses: Visualized sinuses are unremarkable. No fluid levels. Mastoid air cells: Visualized mastoid air cells are well aerated. No mastoid effusion. Soft tissues: Unremarkable. IMPRESSION: 1. No acute findings. 2. Cortical and cerebellar atrophy. 3. Mild chronic microvascular ischemic change in the deep white matter Electronically signed by: Mirian Tubbs On 01/28/2019 21:03:33 PM
--- NOTE | 2019-01-28 21:19 | REPVR ---
EXAM: CT Abdomen and Pelvis Without Contrast EXAM DATE/TIME: 01/28/2019 8:08 PM CLINICAL HISTORY: 63 years old, female; Pain and condition or disease; Kidney or ureter condition; Chronic kidney disease or failure; Not specified; Abdominal pain; Generalized; Additional info: AMS, abd pain, ckd TECHNIQUE: Imaging protocol: Axial computed tomography images of the abdomen and pelvis without contrast. Coronal and sagittal reformatted images were created and reviewed. Radiation optimization: All CT scans at this facility use at least one of these dose optimization techniques: automated exposure control; mA and/or kV adjustment per patient size (includes targeted exams where dose is matched to clinical indication); or iterative reconstruction. COMPARISON: CR HIPS BILAT 2 VIEW W/AP PELVIS 11/15/2017 5:09 PM FINDINGS: Pleural space: Nodularity noted along the lung base at the level of the diaphragm appears to be related to pleural or extrapleural fat seen best on the coronal images. ABDOMEN: Liver: Normal. No mass. Gallbladder and bile ducts: Normal. No calcified stones. No ductal dilation. Pancreas: Minimal stranding of the fat surrounding the celiac axis and superior mesenteric artery as they abut the neck of the pancreas. Spleen: Normal. No splenomegaly. Adrenals: Normal. No mass. Kidneys and ureters: Right: 8mm calcification in the lower pole the right kidney. Focal cortical atrophy in the lower pole the right kidney. 4 mm parenchymal calcification in the upper pole the right kidney. There is adjacent focal cortical atrophy. No hydronephrosis Left: Lobulated contour to the left kidney with 3 focal lesions.. One in the lower pole laterally measuring 1.5 cm with a density measurement of 12 H. A second in the upper pole anteriorly measuring 2.3 cm with a density measurement of 16 H. A third in the upper pole posteriorly measuring 1.5 cm with a density measurement of 24H.. No hydronephrosis Stomach and bowel: Normal. No obstruction. No mucosal thickening. Appendix: No evidence of appendicitis. PELVIS: Bladder: Unremarkable as visualized. Reproductive: Not seen as a separate structure. Significant beam hardening limits resolution of the pelvis ABDOMEN and PELVIS: Intraperitoneal space: Normal. No free air. No significant fluid collection. Bones/joints: Bilateral total hip prostheses. Beam hardening artifact from the prostheses degrades images of the inferior pelvis. Compression deformity of the superior endplate of L1 with approximately 20% loss of height of the vertebral body. No retropulsed fragment seen. Narrowing of the L4-5 disc space hypertrophic facet arthropathy noted in the mid and lower lumbar spine. Soft tissues: Unremarkable. Vasculature: Normal. No abdominal aortic aneurysm. Lymph nodes: Normal. No enlarged lymph nodes. IMPRESSION: 1. Stranding of the fat surrounding the celiac axis and superior mesenteric artery as they abut the neck of the pancreas. This could be related to previous inflammation or adenopathy. Pancreatitis it should be excluded clinically. 2. Hyperdense on lesion in the upper pole of the right kidney. It's not fully evaluated on this noncontrast study. MR might be helpful if clinically relevant 3. Nonobstructing calcifications in the right kidney. Associated parenchymal atrophy in the area calcification suggests it could be dystrophic. 4. Compression fracture of L1 with approximately 20% loss of height. No retropulsed fragments. Electronically signed by: Mirian Tubbs On 01/28/2019 21:19:14 PM
[2019-01-28] MEDS ORDERED: MAGN400T PO (23:42)
[2019-01-28] MEDS ORDERED: AMMO12LO TOP (23:42)
[2019-01-28] MEDS ORDERED: FLUT22IN INH (23:42)
[2019-01-28] MEDS ORDERED: DIVA250T67 PO (23:42)
[2019-01-28] MEDS ORDERED: FURO20TA2 PO (23:42)
[2019-01-28] MEDS ORDERED: VENTAER INH (23:42)
[2019-01-28] MEDS ORDERED: AMLO5TAB6 PO (23:42)
--- NOTE | 2019-01-29 01:00 | REP ---
Clinical: Chest pain. Altered mental status . Comparison: 06/02/2015 . Findings: The mediastinum and cardiac silhouette are stable and within normal limits for portable technique. The lung zambrano are clear without acute consolidation, effusion, or pneumothorax. Skeletal structures are intact. Impression: No acute cardiopulmonary process appreciated. Electronically Signed by Gordon Christianson MD 01/29/2019 12:50 A
--- NOTE | 2019-01-29 01:12 | HPEPDOC ---
[facility] Medical History & Physical Date of Admission Jan 28, 2019 Date of Service: Jan 28, 2019 History and Physical CHIEF COMPLAINT: melena HISTORY OF PRESENT ILLNESS: Patient is a 63-year-old female with past medical history of seizure disorder, nephrotic syndrome, CKD, overactive bladder brought in by EMS for reported me otilia. Patient herself is not really sure why she is in the ER. She is AAO x3 but seem to have some baseline cognitive impairment? States that she doesn't know much. Most history obtained from records. She states that she never had blood in her stool before and has not been taking more than normal NSAIDs. Denies any particular symptoms including chest pain, abdominal pain, SOB, weakness, lethargy, etc. She reports recently starting taking magnesium and iron supplements. PAST MEDICAL HISTORY: Refer to [facility] PAST SURGICAL HISTORY: hysterectomy SOCIAL HISTORY: Former smoker. Denies alcohol or illicit drug use. FAMILY HISTORY: Patient unaware of any medical problems in her family ALLERGIES: Please see below. REVIEW OF SYSTEMS: 10 point review of system negative except as stated in [facility] HOME MEDICATIONS: Please see below. PHYSICAL EXAMINATION: General: No acute distress, Alert Eyes: Normal sclera, EOMI, ELIJAH HENT: Atraumatic, neck supple, moist mucous membranes Cardiovascular: Normal rate, normal rhythm. No murmurs appreciated. Pulmonary: Clear to auscultation b/l, no wheezing GI: Soft, mildly tender in upper quadrants, nondistended Skin: Warm and dry Neuro: CN grossly intact. No focal deficits. Strengths equal b/l. Psych: oriented x 3 but may have some cognitive impairments LABORATORY DATA: See below. IMAGING: CT head- CT abdomen- MICROBIOLOGY: Please see below. ASSESSMENT AND PLAN: 1. Dark stool - Melena vs. Iron supplements. - Guaic + stool sample. Not typical of iron to show positive but possible? - Hb at 10.3, baseline around 12-13. - Type and cross. - Monitor at this time. Asymptomatic. - f/u CBC, consider GI consult in AM vs. monitor. 2. SAMRA on CKD - 2/2 nephrotic syndrome. - Cr 2.58 from baseline around 1.77. - IVF support, f/u AM labs. 3. Overactive bladder - Monitor. 4. HTN - resume home medications. 5. Seizure disorder - resume home meds. DVT ppx: SCD. No AC due to suspected GI bleed. Code status: Full code Vital Signs Vital Signs Date Time Temp Pulse Resp B/P (MAP) Pulse Ox O2 Delivery O2 Flow Rate FiO2 01/28/19 23:45 107 18 146/75 (98) 96 Room Air 01/28/19 18:23 97.1 Laboratory Data Labs 24H Laboratory Tests 2 01/28/19 18:52: Immature Granulocyte % (Auto) 0.6, White Blood Count 8.5, Red Blood Count 3.15L, Hemoglobin 10.3L, Hematocrit 30.4L, Mean Corpuscular Volume 96.5H, Mean Corpu scular Hemoglobin 32.7, Mean Corpuscular Hemoglobin Concent 33.9, Red Cell Distribution Width 14.5, Platelet Count 141L, Neutrophils (%) (Auto) 55.7, Lymphocytes (%) (Auto) 33.5, Monocytes (%) (Auto) 9.8H, Eosinophils (%) (Auto) 0.2, Basophils (%) (Auto) 0.2, Neutrophils # (Auto) 4.7, Lymphocytes # (Auto) 2.8, Monocytes # (Auto) 0.8, Eosinophils # (Auto) 0.0, Basophils # (Auto) 0.0, Nucleated Red Blood Cells % (auto) 0.2H, Prothrombin Time 12.9, Prothromb Time International Ratio 0.96, Activated Partial Thromboplast Time 20.0L, Anion Gap 9, Glomerular Filtration Rate 19.9L, Calcium Level 8.9, Aspartate Amino Transf (AST/SGOT) 10, Alanine Aminotransferase (ALT/SGPT) 9L, Alkaline Phosphatase 48, Total Bilirubin 0.1L, Direct Bilirubin < 0.1, Total Protein 6.5, Albumin 2.7L, Albumin/Globulin Ratio 0.71L, Lipase 149, Prolactin 12.8, Valproic Acid (Depakene) Level 71.8, Ethyl Alcohol Level < 0.003 01/28/19 20:49: Lactic Acid Level 1.6 01/28/19 21:30: Urine Color YELLOW, Urine Appearance CLEAR, Urine pH 5.0, Urine Specific [place] 1.013, Urine Protein NEGATIVE, Urine Glucose (UA) NEGATIVE, Urine Ketones TRACEH, Urine Blood 2+H, Urine Nitrite NEGATIVE, Urine Bilirubin NEGATIVE, Urine Urobilinogen 0.2, Urine Leukocyte Esterase 2+H, Urine WBC (Auto) 9H, Urine RBC (Auto) 12H, Urine Hyaline Casts (Auto) 3, Urine Bacteria (Auto) NEGATIVE, Urine Squamous Epithelial Cells 0, Urine Mucus (Auto) SMALL, Urine Sperm (Auto) CBC/BMP Laboratory Tests 01/28/19 18:52 Red Blood Count 3.15 L, Mean Corpuscular Volume 96.5 H, Mean Corpuscular Hemoglobin 32.7, Mean Corpuscular Hemoglobin Concent 33.9, Red Cell Distribution Width 14.5, Neutrophils (%) (Auto) 55.7, Lymphocytes (%) (Auto) 33.5, Monocytes (%) (Auto) 9.8 H, Eosinophils (%) (Auto) 0.2, Basophils (%) (Auto) 0.2, Neutrophils # (Auto) 4.7, Lymphocytes # (Auto) 2.8, Monocytes # (Auto) 0.8, Eosinophils # (Auto) 0.0, Basophils # (Auto) 0.0 Microbiology Microbiology 01/28/19 Urine Culture, Received Pending Home Medications Scheduled Amlodipine Besylate (Amlodipine Besylate) 5 Mg Tablet, 5 MG PO DAILY Ammonium Lactate (Ammonium Lactate) 12% Lotion, 1 DOSE TOP DAILY USES ON FEET Aspirin (Aspirin EC) 81 Mg Tabec, 81 MG PO DAILY Bimatoprost (Lumigan) 50 Drop/2.5 Ml Aisha, 1 DROP OU QHS Brimonidine Tartrate (Alphagan P) 100 Drop/5 Ml Soln, 1 DROP OU BID Divalproex Sodium (Divalproex Sodium) 500 Mg Tab, 500 MG PO BID Divalproex Sodium (Divalproex Sodium) 250 Mg Tablet.dr, 250 MG PO DAILY TAKES WITH 500MG FOR 750MG TOTAL IN THE MORNING Duloxetine Hcl (Cymbalta) 30 Mg Cap, 30 MG PO QHS Fluticasone Propionate (Flovent Hfa) 220 Mcg/Act Aer.w.adap, 2 PUFF INH BID Furosemide (Furosemide) 20 Mg Tablet, 20 MG PO DAILY Gabapentin (Gabapentin) 300 Mg Cap, 300 MG PO QHS Magnesium Oxide (Magnesium Oxide) 400 Mg Tablet, 400 MG PO BID Metoprolol Succinate (Metoprolol Succinate) 25 Mg Tab.er.24h, 25 MG PO DAILY Oxybutynin Chloride (Oxybutynin Chloride ER) 10 Mg Tab, 10 MG PO DAILY Pravastatin Sodium (Pravastatin Sodium) 20 Mg Tab, 20 MG PO DAILY Scheduled PRN Albuterol Sulfate (Ventolin Hfa) 18 Gm Hfa.aer.ad, 2 PUFF INH Q4H PRN for SHORTNESS OF BREATH Allergies Coded Allergies: FISH (Verified Allergy, Severe, hives, 01/28/19) bee venom protein (honey bee) (Verified Allergy, Severe, hives, 01/28/19) Animal Dander (Verified Allergy, Unknown, 02/12/18) horse dander (Verified Allergy, Unknown, hives, 01/28/19) A-FIB/CHADSVASC A-FIB History Current/History of A-Fib/PAF?: No JANESSA ALLEN MD Jan 29, 2019 01:12
[2019-01-29] MEDS ORDERED: NS 1,000 ML IV SCH (01:15)
[2019-01-29] MEDS ORDERED: ONDANSETRON 4MG/2ML VIAL (J2405) IV PRN ×2 (01:45→21:00)
[2019-01-29] MEDS: DULoxetine 30 MG CAP (CYMBALTA) PO SCH ×2 (02:17→22:46)
[2019-01-29] MEDS: MAGNESIUM OXIDE 400 MG TAB (MAG-OX) PO SCH ×3 (02:17→22:46)
[2019-01-29] MEDS: GABAPENTIN 300 MG CAP PO SCH ×2 (02:17→22:46)
[2019-01-29] MEDS: DIVALPROEX 500 MG TAB PO SCH ×3 (02:17→22:46)
[2019-01-29 07:01] LABS: HEMATOCRIT 22.4 % (36.0-47.0); HEMOGLOBIN 7.5 g/dl (12.0-15.5); MEAN CORPUSCULAR HEMOGLOBIN 31.8 pg (27.0-33.0); MEAN CORPUSCULAR HGB CONC 33.5 g/dl (32.0-36.5); MEAN CORPUSCULAR VOLUME 94.9 fl (80.0-96.0); PLATELET COUNT, AUTOMATED 126 10^3/uL (150-450); RED BLOOD COUNT 2.36 10^6/uL (4.00-5.40); WHITE BLOOD COUNT 9.6 10^3/uL (4.0-10.0)
[2019-01-29 07:34] LABS: CALCIUM LEVEL 8.6 MG/DL (8.8-10.2); CREATININE FOR GFR 2.74 MG/DL (0.55-1.30); GLOMERULAR FILTRATION RATE 18.6 (>45); POTASSIUM SERUM 4.5 MEQ/L (3.5-5.1)
--- NOTE | 2019-01-29 07:55 | ECGEPIP ---
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
[2019-01-29 08:00] VITALS: BP 136/74
[2019-01-29] MEDS: PANTOPRAZOLE 40MG INJ (PROTONIX) (C9113) IV SCH ×2 (10:03→22:47)
[2019-01-29] MEDS: FUROSEMIDE 20 MG TAB PO SCH (10:03)
[2019-01-29] MEDS: DIVALPROEX 250 MG TAB PO SCH (10:04)
[2019-01-29] MEDS: PRAVASTATIN 20 MG TAB PO SCH (10:04)
[2019-01-29] MEDS: METOPROLOL SUCC *XL* 25MG TAB (TopROL *XL*) PO SCH (10:05)
[2019-01-29] MEDS: amLODIPine 5 MG TAB PO SCH (10:05)
[2019-01-29] MEDS: D5W 1,000 ML IV SCH ×2 (10:05→18:10)
[2019-01-29] MEDS: oxyBUTYnin *DITROPAN XL* 5 MG TABCR PO SCH (10:09)
[2019-01-29] MEDS: BRIMONIDINE 0.1% OPHTH SOLN 5 ML OU SCH (10:30)
[2019-01-29] MEDS: FLUTICASONE HFA 220 MCG 12 GM INHALER (FLOVENT) INH SCH ×2 (15:13→20:47)
[2019-01-29 18:06] VITALS: BP 146/67
[2019-01-29 19:50] LABS: HEMATOCRIT 32.6 % (36.0-47.0); HEMOGLOBIN 11.7 g/dl (12.0-15.5); MEAN CORPUSCULAR HEMOGLOBIN 31.3 pg (27.0-33.0); MEAN CORPUSCULAR HGB CONC 35.9 g/dl (32.0-36.5); MEAN CORPUSCULAR VOLUME 87.2 fl (80.0-96.0); PLATELET COUNT, AUTOMATED 104 10^3/uL (150-450); RED BLOOD COUNT 3.74 10^6/uL (4.00-5.40); WHITE BLOOD COUNT 13.2 10^3/uL (4.0-10.0)
[2019-01-29] MEDS ORDERED: PROPOFOL 200 MG/20 ML VIAL As Ordered ONE ×2 (20:15→20:32)
[2019-01-29] MEDS ORDERED: LIDOCAINE 2% INJ 100 MG/5 ML SDV (FOR ANES.) As Ordered ONE (20:15)
[2019-01-29] MEDS ORDERED: GLUCAGON FOR INJ 1 MG VIAL (J1610) As Ordered ONE (20:22)
--- NOTE | 2019-01-29 20:32 | IPNPDOC ---
Subjective Date Seen The patient was seen on 01/29/19. Subjective Chief Complaint/HPI The patient does not have pain. She states that she had a dark stool, and this is why she came to the ED. Currently, denies any symptoms except for dizziness. General: Denies: ROS Unobtainable, Chills, Night Sweats, Fatigue, Malaise, Normal Appetite, Other Symptoms Constitutional: Reports: Other (dizziness) Eyes: Denies: Pain, Vision change, Conjunctivae inflammation, Eyelid in flammation, Redness, Other ENT: Denies: Head Aches, Ear Pain, Dysphagia, Sinus Congestion, Post Nasal Drip, Sore Throat, Epistaxis, Other Symptoms Skin: Denies: Rash, Lesions, Jaundice, Bruising, Itching, Dry, Breakdown, Nail Changes, Other Pulmonary: Denies: Dyspnea, Cough, Pleuritic Chest Pain, Other Symptoms Cardiovascular: Denies: Chest Pain, Palpitations, Orthopnea, Paroxysmal Noc. Dyspnea, Edema, Lt Headedness, Other Symptoms Gastrointestinal: Denies: Nausea, Vomiting, Abdominal Pain, Diarrhea, Constipation, Melena, Hematochezia, Other Symptoms Genitourinary: Denies: Dysuria, Frequency, Incontinence, Hematuria, Retention, Other Symptoms Hematologic: Denies: Bruising, Bleeding Excessively, Petecchia, Purpura, Enlarged Lymph Nodes, Other Hematologic Endocrine: Denies: Polydipsia, Polyphagia, Polyuria, Heat Intolerance, Cold Intolerance, Other Endocrine Sx Musculoskeletal: Denies: Neck Pain, Back Pain, Shoulder Pain, Arm Pain, Hand Pain, Leg Pain, Foot Pain, Joint Pain, Muscle Pain, Spasms, Other Symptoms Neurological: Denies: Weakness, Numbness, Incoordination, Change in speech, Confusion, Seizures, Other Symptoms Psych: Denies: Mood Normal, Anxiety, Depression, Memory Issues, Thoughts of Self Harm, Anger, Thoughts of Harming Other, Other Psych Objective Physical Examination General Exam: Positive: Alert Eye Exam: Positive: PERRLA, Conjunctiva & lids normal ENT Exam: Positive: Atraumatic, Mucous membr. moist/pink Neck Exam: Positive: Supple Chest Exam: Positive: Clear to auscultation Heart Exam: Positive: Rate Normal Telemetry: Positive: No significant arrhythmia Abdomen Exam: Positive: Normal bowel sounds Female Exam: Positive: Nl Ext Genitalia Skin Exam: Positive: Nl turgor and temperature Neuro Exam: Positive: Normal Gait Psych Exam: Positive: Mood NL Assessment /Plan Problems (1) GI bleed Status: Acute Problem Text: # Upper GI bleeding - Repeat Hb was down to 7 from 10, and her baseline Hb is 12. - The patient received 2 units of pRBC transfusion, and repeat Hb is 11.7. - GI was consulted, and the patient will have EGD tonight. NPO. - Continue protonix. # SAMRA on CKD, hypernatremia, hyperchloremia - The patient is clinically dry, receiving NS. However, Na and Chloride are high. Will continue D5 water. - She has a history of nephrotic syndrome. - Follow daily labs # Overactive bladder - Monitor. # HTN - Continue home medications. # Seizure disorder - Continue home medications Plan/VTE VTE Prophylaxis Ordered?: No VS, I&O, 24H, Fishbone Vital Signs/I&O Vital Signs Date Time Temp Pulse Resp B/P (MAP) Pulse Ox O2 Delivery O2 Flow Rate FiO2 01/29/19 18:06 97.6 80 18 146/67 (93) 96 01/29/19 06:38 Room Air I&O- Last 24 Hours up to 6 AM 01/29/19 06:00 Output Total 1 ml Balance -1 ml Laboratory Data 24H LABS Laboratory Tests 2 01/28/19 20:49: Lactic Acid Level 1.6 01/28/19 21:30: Urine Color YELLOW, Urine Appearance CLEAR, Urine pH 5.0, Urine Specific [place] 1.013, Urine Protein NEGATIVE, Urine Glucose (UA) NEGATIVE, Urine Ketones TRACEH, Urine Blood 2+H, Urine Nitrite NEGATIVE, Urine Bilirubin NEGATIVE, Urine Urobilinogen 0.2, Urine Leukocyte Esterase 2+H, Urine WBC (Auto) 9H, Urine RBC (Auto) 12H, Urine Hyaline Casts (Auto) 3, Urine Bacteria (Auto) NEGATIVE, Urine Squamous Epithelial Cells 0, Urine Mucus (Auto) SMALL, Urine Sperm (Auto) 01/29/19 06:33: Nucleated Red Blood Cells % (auto) 0.4H, Anion Gap 10, Glomerular Filtration Rate 18.6L, Blood Urea Nitrogen 113H, Creatinine 2.74H, Sodium Level 148H, Potassium Level 4.5, Chloride Level 115H, Carbon Dioxide Level 23, Calcium Level 8.6L 01/29/19 19:40: Nucleated Red Blood Cells % (auto) 0.5H CBC/BMP Laboratory Tests 01/29/19 06:33 Red Blood Count 2.36 L, Mean Corpuscular Volume 94.9, Mean Corpuscular Hemoglobin 31.8, Mean Corpuscular Hemoglobin Concent 33.5, Red Cell Distribution Width 14.7 H, Calcium Level 8.6 L 01/29/19 19:40 Red Blood Count 3.74 L, Mean Corpuscular Volume 87.2, Mean Corpuscular Hemoglobin 31.3, Mean Corpuscular Hemoglobin Concent 35.9, Red Cell Distribution Width 15.9 H Microbiology Microbiology 01/28/19 Urine Culture, Received Pending RENITA MONTIEL MD Jan 29, 2019 20:32
--- NOTE | 2019-01-29 20:42 | ROOR ---
Patient Name: Doreen Pickering Procedure Date: 01/29/2019 8:37 PM Date of : 1955 Age: 63 Gender: Female Note Status: Finalized Procedure: Upper GI endoscopy Indications: Acute post hemorrhagic anemia, Coffee-ground emesis, Melena Providers: Yobani ABDI MD Referring MD: 2. Inpatient 2. Inpatient Requesting Provider: Medicines: Monitored Anesthesia Care Complications: No immediate complications. Procedure: Pre-Anesthesia Assessment: - The heart rate, respiratory rate, oxygen saturations, blood pressure, adequacy of pulmonary ventilation, and response to care were monitored throughout the procedure. The Endoscope was introduced through the mouth, and advanced to the second part of duodenum. The upper GI endoscopy was accomplished without difficulty. The patient tolerated the procedure well. Findings: The examined esophagus was normal. One non-bleeding cratered gastric ulcer with pigmented material was found in the gastric antrum. The lesion was 10 mm in largest dimension. For hemostasis, two hemostatic clips were successfully placed. There was no bleeding at the end of the procedure. Scattered moderate inflammation characterized by linear erosions was found in the gastric antrum. Biopsies were taken with a cold forceps for Helicobacter pylori testing. A small hiatal hernia was present. The examined duodenum was normal. Impression: - Normal esophagus. - Non-bleeding gastric ulcer with 2 red spots/pigmented material . Clips were placed. - Gastritis. Biopsied. - Small hiatal hernia. - Normal examined duodenum. Recommendation: - Use a proton pump inhibitor PO daily. - Observe patient's clinical course. - Repeat upper endoscopy in 3 months for surveillance. - Await pathology results. Yobani Abdi MD Yobani ABDI MD 01/29/2019 8:42:32 PM Electronically signed by Yobani ABDI MD Number of Addenda: 0 Note Initiated On: 01/29/2019 8:37 PM Estimated Blood Loss: Estimated blood loss: none.
[2019-01-29] MEDS ORDERED: PERCOCET 5MG/325MG TAB PO PRN (21:00)
[2019-01-29] MEDS ORDERED: fentaNYL 100 MCG/2 ML INJECTION (J3010) IV PRN (21:00)
[2019-01-29] MEDS ORDERED: HYDROMORPHONE HCL 0.5 MG/ 0.5 ML SYRINGE (J1170 PER 1) IV PRN (21:00)
[2019-01-29] MEDS ORDERED: LR 1,000 ML IV SCH (21:00)
[2019-01-29 22:00] VITALS: BP 141/67
[2019-01-30] MEDS: D5W 1,000 ML IV SCH ×2 (00:11→11:48)
[2019-01-30] MEDS: BRIMONIDINE 0.1% OPHTH SOLN 5 ML OU SCH ×3 (00:24→20:07)
[2019-01-30 02:00] VITALS: BP 138/70
[2019-01-30 05:14] LABS: HEMATOCRIT 25.9 % (36.0-47.0); MEAN CORPUSCULAR HEMOGLOBIN 31.4 pg (27.0-33.0); MEAN CORPUSCULAR HGB CONC 35.1 g/dl (32.0-36.5); MEAN CORPUSCULAR VOLUME 89.3 fl (80.0-96.0); WHITE BLOOD COUNT 9.8 10^3/uL (4.0-10.0)
[2019-01-30 05:17] LABS: HEMOGLOBIN 9.1 g/dl (12.0-15.5); PLATELET COUNT, AUTOMATED 88 10^3/uL (150-450)
[2019-01-30 05:49] LABS: ALBUMIN 2.1 GM/DL (3.2-5.2); ALT/SGPT < 6 U/L (12-78); BILIRUBIN,TOTAL 0.2 MG/DL (0.2-1.0); BLOOD UREA NITROGEN 87 MG/DL (7-18); CALCIUM LEVEL 7.5 MG/DL (8.8-10.2); CARBON DIOXIDE LEVEL 26 MEQ/L (21-32); CHLORIDE LEVEL 112 MEQ/L (98-107); CREATININE FOR GFR 2.43 MG/DL (0.55-1.30); GLOMERULAR FILTRATION RATE 21.3 (>45); GLUCOSE, FASTING 111 MG/DL (70-100); POTASSIUM SERUM 3.8 MEQ/L (3.5-5.1); SODIUM LEVEL 145 MEQ/L (136-145); TOTAL PROTEIN 5.1 GM/DL (6.4-8.2)
[2019-01-30 06:00] VITALS: BP 107/58
[2019-01-30] MEDS: FLUTICASONE HFA 220 MCG 12 GM INHALER (FLOVENT) INH SCH ×2 (07:40→19:40)
[2019-01-30] MEDS: PANTOPRAZOLE 40MG INJ (PROTONIX) (C9113) IV SCH (08:43)
[2019-01-30] MEDS: FUROSEMIDE 20 MG TAB PO SCH (08:43)
[2019-01-30] MEDS: DIVALPROEX 250 MG TAB PO SCH (08:44)
[2019-01-30] MEDS: MAGNESIUM OXIDE 400 MG TAB (MAG-OX) PO SCH ×2 (08:44→20:06)
[2019-01-30] MEDS: oxyBUTYnin *DITROPAN XL* 5 MG TABCR PO SCH (08:44)
[2019-01-30] MEDS: PRAVASTATIN 20 MG TAB PO SCH (08:44)
[2019-01-30] MEDS: DIVALPROEX 500 MG TAB PO SCH ×2 (08:44→20:07)
[2019-01-30] MEDS: amLODIPine 5 MG TAB PO SCH (08:46)
[2019-01-30] MEDS: METOPROLOL SUCC *XL* 25MG TAB (TopROL *XL*) PO SCH (08:46)
[2019-01-30 10:00] VITALS: BP 112/63
[2019-01-30 14:00] VITALS: BP 115/59
--- NOTE | 2019-01-30 18:49 | IPNPDOC ---
Subjective Date Seen The patient was seen on 01/30/19. Subjective Chief Complaint/HPI The patient feels much better. She does not have dizziness any more. No blood in stool. No abdominal pain. Denies any other complaints. General: Denies: ROS Unobtainable, Chills, Night Sweats, Fatigue, Malaise, Normal Appetite, Other Symptoms Constitutional: Denies: Chills, Fever, Malaise, Night Sweats, Weakness, Fatigue, Weight Loss, Lethargy, Other Eyes: Denies: Pain, Vision change, Conjunctivae inflammation, Eyelid inflammation, Redness, Other ENT: Denies: Head Aches, Ear Pain, Dysphagia, Sinus Congestion, Post Nasal Drip, Sore Throat, Epistaxis, Other Symptoms Skin: Denies: Rash, Lesions, Jaundice, Bruising, Itching, Dry, Breakdown, Nail Changes, Other Pulmonary: Denies: Dyspnea, Cough, Pleuritic Chest Pain, Other Symptoms Cardiovascular: Denies: Chest Pain, Palpitations, Orthopnea, Paroxysmal Noc. Dyspnea, Edema, Lt Headedness, Other Symptoms Gastrointestinal: Denies: Nausea, Vomiting, Abdominal Pain, Diarrhea, Constipation, Melena, Hematochezia, Other Symptoms Genitourinary: Denies: Dysuria, Frequency, Incontinence, Hematuria, Retention, Other Symptoms Hematologic: Denies: Bruising, Bleeding Excessively, Petecchia, Purpura, Enlarged Lymph Nodes, Other Hematologic Endocrine: Denies: Polydipsia, Polyphagia, Polyuria, Heat Intolerance, Cold Intolerance, Other Endocrine Sx Musculoskeletal: Denies: Neck Pain, Back Pain, Shoulder Pain, Arm Pain, Hand Pain, Leg Pain, Foot Pain, Joint Pain, Muscle Pain, Spasms, Other Symptoms Neurological: Denies: Weakness, Numbness, Incoordination, Change in speech, Confusion, Seizures, Other Symptoms Psych: Denies: Mood Normal, Anxiety, Depression, Memory Issues, Thoughts of Se lf Harm, Anger, Thoughts of Harming Other, Other Psych Objective Physical Examination General Exam: Positive: Alert Eye Exam: Positive: PERRLA, Conjunctiva & lids normal ENT Exam: Positive: Atraumatic, Mucous membr. moist/pink Neck Exam: Positive: Supple Chest Exam: Positive: Clear to auscultation Heart Exam: Positive: Rate Normal Telemetry: Positive: No significant arrhythmia Abdomen Exam: Positive: Normal bowel sounds Female Exam: Positive: Nl Ext Genitalia Skin Exam: Positive: Nl turgor and temperature Neuro Exam: Positive: Normal Gait Psych Exam: Positive: Mood NL Assessment /Plan Problems (1) GI bleed Status: Acute Problem Text: # Upper GI bleeding - Repeat Hb was down to 7 from 10, and her baseline Hb is 12. - The patient received 2 units of pRBC transfusion, and repeat Hb is 11.7. - GI was consulted, and the patient had urgent EGD, showing a 1 cm ulcer in the stomach. - Continue protonix. - Follow CBC. # SAMRA on CKD, hypernatremia, hyperchloremia - The patient is clinically dry, receiving NS. - She has a history of nephrotic syndrome. - Follow daily labs # Overactive bladder - Monitor. # HTN - Continue home medications. # Seizure disorder - Continue home medications Plan/VTE VTE Prophylaxis Ordered?: No VS, I&O, 24H, Fishbone Vital Signs/I&O Vital Signs Date Time Temp Pulse Resp B/P (MAP) Pulse Ox O2 Delivery O2 Flow Rate FiO2 01/30/19 14:00 96.8 65 18 115/59 (77) 100 01/29/19 06:38 Room Air I&O- Last 24 Hours up to 6 AM 01/30/19 06:00 Intake Total 1200 ml Output Total 2600 ml Balance -1400 ml Laboratory Data 24H LABS Laboratory Tests 2 01/29/19 19:40: Nucleated Red Blood Cells % (auto) 0.5H 01/30/19 04:46: Nucleated Red Blood Cells % (auto) 0.5H, Immature Platelet Fraction 4.0, Anion Gap 7L, Glomerular Filtration Rate 21.3L, Blood Urea Nitrogen 87H, Creatinine 2.43H, Sodium Level 145, Potassium Level 3.8, Chloride Level 112H, Carbon Humphrey xide Level 26, Calcium Level 7.5L, Aspartate Amino Transf (AST/SGOT) 9, Alanine Aminotransferase (ALT/SGPT) < 6L, Alkaline Phosphatase 35L, Total Bilirubin 0.2#, Total Protein 5.1#L, Albumin 2.1#L, Albumin/Globulin Ratio 0.70L CBC/BMP Laboratory Tests 01/29/19 19:40 Red Blood Count 3.74 L, Mean Corpuscular Volume 87.2, Mean Corpuscular Hemoglobin 31.3, Mean Corpuscular Hemoglobin Concent 35.9, Red Cell Distribution Width 15.9 H 01/30/19 04:46 Red Blood Count 2.90 L, Mean Corpuscular Volume 89.3, Mean Corpuscular Hemoglobin 31.4, Mean Corpuscular Hemoglobin Concent 35.1, Red Cell Distribution Width 17.1 H, Calcium Level 7.5 L, Aspartate Amino Transf (AST/SGOT) 9, Alanine Aminotransferase (ALT/SGPT) < 6 L, Alkaline Phosphatase 35 L, Total Bilirubin 0.2 #, Total Protein 5.1 #L, Albumin 2.1 #L Microbiology Microbiology 01/28/19 Urine Culture - Final, Complete RENITA MONTIEL MD Jan 30, 2019 18:49
[2019-01-30 19:33] LABS: HEMOGLOBIN 10.7 g/dl (12.0-15.5); MEAN CORPUSCULAR HEMOGLOBIN 31.2 pg (27.0-33.0); MEAN CORPUSCULAR HGB CONC 34.5 g/dl (32.0-36.5); MEAN CORPUSCULAR VOLUME 90.4 fl (80.0-96.0); PLATELET COUNT, AUTOMATED 108 10^3/uL (150-450); RED BLOOD COUNT 3.43 10^6/uL (4.00-5.40); WHITE BLOOD COUNT 8.7 10^3/uL (4.0-10.0)
[2019-01-30] MEDS: DULoxetine 30 MG CAP (CYMBALTA) PO SCH (20:06)
[2019-01-30] MEDS: GABAPENTIN 300 MG CAP PO SCH (20:06)
[2019-01-30 22:00] VITALS: BP 102/53
[2019-01-31] VITALS (11 sets, daily range): BP systolic 93–126; BP diastolic 48–65
[2019-01-31 02:36] LABS: CPK CREATINE PHOSPHOKINASE 27 U/L (26-192); MB/CK RELATIVE INDEX 4.81 (< OR =4); TROPONIN I < 0.02 NG/ML (< 0.10)
[2019-01-31] MEDS ORDERED: SODIUM CHLORIDE 0.9% 1000ML IV ONE (06:30)
[2019-01-31 06:34] LABS: HEMATOCRIT 27.7 % (36.0-47.0); HEMOGLOBIN 9.5 g/dl (12.0-15.5); MEAN CORPUSCULAR HEMOGLOBIN 31.4 pg (27.0-33.0); MEAN CORPUSCULAR HGB CONC 34.3 g/dl (32.0-36.5); MEAN CORPUSCULAR VOLUME 91.4 fl (80.0-96.0); RED BLOOD COUNT 3.03 10^6/uL (4.00-5.40); WHITE BLOOD COUNT 7.2 10^3/uL (4.0-10.0)
[2019-01-31 06:58] LABS: PLATELET COUNT, AUTOMATED 93 10^3/uL (150-450)
[2019-01-31 07:05] LABS: ALBUMIN 2.3 GM/DL (3.2-5.2); BILIRUBIN,TOTAL 0.2 MG/DL (0.2-1.0); CALCIUM LEVEL 7.9 MG/DL (8.8-10.2); CREATININE FOR GFR 2.12 MG/DL (0.55-1.30); POTASSIUM SERUM 3.9 MEQ/L (3.5-5.1); TOTAL PROTEIN 5.4 GM/DL (6.4-8.2)
[2019-01-31] MEDS: FLUTICASONE HFA 220 MCG 12 GM INHALER (FLOVENT) INH SCH ×2 (07:48→19:36)
[2019-01-31] MEDS: PRAVASTATIN 20 MG TAB PO SCH (08:28)
[2019-01-31] MEDS: DIVALPROEX 250 MG TAB PO SCH (08:28)
[2019-01-31] MEDS: oxyBUTYnin *DITROPAN XL* 5 MG TABCR PO SCH (08:28)
[2019-01-31] MEDS: FUROSEMIDE 20 MG TAB PO SCH (08:29)
[2019-01-31] MEDS: DIVALPROEX 500 MG TAB PO SCH ×2 (08:29→21:02)
[2019-01-31] MEDS: MAGNESIUM OXIDE 400 MG TAB (MAG-OX) PO SCH ×2 (08:29→20:59)
[2019-01-31] MEDS: PANTOPRAZOLE 40MG INJ (PROTONIX) (C9113) IV SCH (08:29)
[2019-01-31] MEDS: amLODIPine 5 MG TAB PO SCH (08:29)
[2019-01-31] MEDS: BRIMONIDINE 0.1% OPHTH SOLN 5 ML OU SCH ×2 (08:29→20:57)
--- NOTE | 2019-01-31 20:15 | ECGEPIP ---
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 Electronically Signed on 01-31-2019 20:15:01 EDT by Efra Castro
--- NOTE | 2019-01-31 20:23 | ECGEPIP ---
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
--- NOTE | 2019-01-31 20:49 | CR ---
DATE OF CONSULTATION: 01/31/2019 REFERRING PROVIDER: Dr. Cris Yuan REASON FOR CONSULTATION: Sinus pause. HISTORY OF PRESENT ILLNESS: A 63-year-old woman with a history of hypertension, came to the hospital on 01/28/2019 because of changes in the color of her stools; it was black, consistent with melena. At that time, she was on iron. Further workup revealed occult blood in her stools, and she had dropped her hemoglobin and hematocrit. She was transfused two units of packed red blood cells, and she was seen by gastroenterology who performed a gastroscopy on 01/29/2019, and it revealed a non-bleeding gastric ulcer with two red spots/pigmented area. That was clipped. Gastritis also was noted as well as a small hiatal hernia. Proton pump inhibitor (PPI) was recommended and followup endoscopy within 3 months. It seemed that she was stable, and the plan was to discharge her earlier today. And she was found to have this morning two sinus pauses of 5.9 seconds and 4 seconds respectively and noted between 7:49 and 7:51 this morning. Upon talking to the nurses, it seemed that the patient was asymptomatic at that time. She was in bed, alert and awake. According to the hospitalist, Dr. Efra Castro was called for a consult. It was suggested to call her primary labor standards director because she was not a patient of his office. I was called this evening to see her. When I saw Mrs. Doreen Pickering on the floor, she was lying supine in bed in no acute distress at rest and her nurse was at bedside. She denies any chest pain, shortness of breath, palpitations. She feels dizzy at times, but there is no report of syncope or near syncope. There is no prior history of sinus pause that she is aware of. She has a history of hypertension for a long time and has been on amlodipine and a small dose of long-acting beta-tamiko, metoprolol succinate. She also been taking furosemide as diuretic on and off. She sees mainly Dr. Manuel, reservation agent, in [place], because of her underlying chronic kidney disease secondary to some type of nephrotic syndrome. She also has a history of seizures for which she is being treated, hyperlipidemia, glaucoma, anxiety/depression, and urinary incontinence. She denies any history of diabetes mellitus, myocardial infarction, congestive heart failure, significant valvular heart disease, atrial fibrillation, cerebrovascular accident (CVA)/transient ischemic attack (TIA), cardiomyopathy, sudden cardiac . She denies thyroid disorders she is aware of. Past surgical history is positive for hysterectomy. SOCIAL HISTORY: The patient is a former smoker and had stopped more than 10 years ago. She denies any ethyl alcohol (EtOH) abuse or illicit drugs. She lives alone with her dog, and she has a son who lives in the area and very supportive. ADVANCED DIRECTIVES: The patient is a FULL CODE. ALLERGIES: To FISH, BEE VENOM PROTEIN, ANIMAL DANDER AND HORSE DANDER. MEDICATIONS AT HOME: Amlodipine 5 mg by mouth daily, aspirin 81 mg by mouth daily, divalproex acid 500 mg by mouth twice a day and 250 mg by mouth at noontime, duloxetine 30 mg by mouth nightly, fluticasone propionate/Flovent HFA 220 mcg by activation two puffs twice a day, Lasix/furosemide 20 mg by mouth daily, gabapentin 300 mg by mouth nightly, magnesium oxide 400 mg by mouth twice a day, metoprolol succinate 25 mg by mouth daily, oxybutynin 10 mg by mouth daily, pravastatin 20 mg by mouth daily, bimatoprost/Lumigan eye drops, as well as Alphagan eye drops. She is also on ammonium lactate lotion applied to the feet as needed. PHYSICAL EXAMINATION: The patient is alert and oriented, in no acute distress at rest and very pleasant. Her most recent vital signs revealed a blood pressure of 94/82 with a pulse of 70, respirations 18 and her maximum temperature is 98 degrees Fahrenheit with an oxygen saturation of 97-100% on room air. Examination of the head: Atraumatic. Neck: Neck is supple, no jugular venous distention (JVD) appreciated. Lungs: Did not reveal any wheezing or crackles. The heart examination revealed irregular heart sound without gallops. The point of maximum impulse (PMI) is not displaced. There is no rub. There is a systolic murmur grade 1 to 2 over 6 at the lower left sternal border and at the apex with some radiation to the axilla. Abdomen is soft and nontender. Extremities revealed no pedal edema. Neurological Examination: Negative for focal deficit. Electrocardiogram done today revealed normal sinus rhythm, bradycardic at 56 beats per minute and right bundle branch block. Telemetry strips done earlier today were reviewed. Heart rate in general was slow but goes up at times up to about 70-75 beats per minute. CBC done today revealed a WBC of 7.2, hemoglobin 9.5, hematocrit 27.7 and platelets 93,000. BMP done earlier today revealed a sodium of 147, potassium 3.9, chloride 112, CO2 of 58, creatinine 2.12, GFR 25.1, fasting glucose 93 and calcium 7.9. Liver enzymes revealed a total bilirubin of 0.2, AST 13, ALT 7, alkaline phosphatase 40, total protein 5.4, and albumin 2.3. Serum troponin is less than 0.02. Serum valproic acid on admission was 71.8. Urinalysis revealed trace ketones and 2+ leukocyte esterase, 9 WBCs and RBCs. Urine culture revealed no growth. IMPRESSION: 1. Sinus pause, asymptomatic in this 63-year-old woman with a history of hypertension, abnormal baseline electrogram manifested by right bundle branch block, chronic kidney disease secondary to nephrotic syndrome, glaucoma, hyperlipidemia, seizure disorders, anxiety/depression. There is no known history of cardiomyopathy. She did have a stress test done in the past in the office, and I will try to get a copy. Not quite sure whether she will need a permanent pacemaker or not because she might not need a beta tamiko. Her chart will be reviewed, the metoprolol succinate was stopped earlier today, and she will be transferred to progressive care unit (PCU) for close monitoring. Dr. Greene is financial solutions advisor, and the case will be discussed with him. The above was discussed with the patient, and she has manifested understanding. Hospitalist covering will be informed. I have noted that her blood pressure is running low and for this reason, I will decrease the amlodipine from 5 mg by mouth daily to 2.5 mg by mouth daily. If no recent echocardiogram done in the office, this will be done while in the hospital for further evaluation. We will also do a Lyme titer. It was a pleasure to participate in the care of Mrs. Doreen Pickering for her underlying cardiac condition. We will continue to monitor along with you while in the hospital. Dr. Greene is covering this weekend, and he will be informed.
[2019-01-31] MEDS: GABAPENTIN 300 MG CAP PO SCH (20:57)
[2019-01-31] MEDS: DULoxetine 30 MG CAP (CYMBALTA) PO SCH (20:57)
--- NOTE | 2019-01-31 21:09 | IPNPDOC ---
Subjective Date Seen The patient was seen on 01/31/19. Subjective Chief Complaint/HPI The patient feels better. While she was having nebulizer treatment, she had dizziness. While this was happening, she had a sinus pause for 5 and 6 seconds. General: Denies: ROS Unobtainable, Chills, Night Sweats, Fatigue, Malaise, Normal Appetite, Other Symptoms Constitutional: Denies: Chills, Fever, Malaise, Night Sweats, Weakness, Fatigue, Weight Loss, Lethargy, Other Eyes: Denies: Pain, Vision change, Conjunctivae inflammation, Eyelid inflammation, Redness, Other ENT: Denies: Head Aches, Ear Pain, Dysphagia, Sinus Congestion, Post Nasal Drip, Sore Throat, Epistaxis, Other Symptoms Skin: Denies: Rash, Lesions, Jaundice, Bruising, Itching, Dry, Breakdown, Nail Changes, Other Pulmonary: Denies: Dyspnea, Cough, Pleuritic Chest Pain, Other Symptoms Cardiovascular: Reports: Other Symptoms (dizziness) Gastrointestinal: Denies: Nausea, Vomiting, Abdominal Pain, Diarrhea, Constipation, Melena, Hematochezia, Other Symptoms Genitourinary: Denies: Dysuria, Frequency, Incontinence, Hematuria, Retention, Other Symptoms Hematologic: Denies: Bruising, Bleeding Excessively, Petecchia, Purpura, Enlarged Lymph Nodes, Other Hematologic Endocrine: Denies: Polydipsia, Polyphagia, Polyuria, Heat Intolerance, Cold Intolerance, Other Endocrine Sx Musculoskeletal: Denies: Neck Pain, Back Pain, Shoulder Pain, Arm Pain, Hand Pain, Leg Pain, Foot Pain, Joint Pain, Muscle Pain, Spasms, Other Symptoms Neurological: Denies: Weakness, Numbness, Incoordination, Change in speech, Confusion, Seizures, Other Symptoms Psych: Denies: Mood Normal, Anxiety, Depression, Memory Issues, Thoughts of Self Harm, Anger, Thoughts of Harming Other, Other Psych Objective Physical Examination General Exam: Positive: Alert Eye Exam: Positive: PERRLA, Conjunctiva & lids normal ENT Exam: Positive: Atraumatic, Mucous membr. moist/pink Neck Exam: Positive: Supple Chest Exam: Positive: Clear to auscultation Heart Exam: Positive: Rate Normal Telemetry: Positive: No significant arrhythmia Abdomen Exam: Positive: Normal bowel sounds Female Exam: Positive: Nl Ext Genitalia Skin Exam: Positive: Nl turgor and temperature Neuro Exam: Positive: Normal Gait Psych Exam: Positive: Mood NL Assessment /Plan Problems (1) GI bleed Status: Acute Problem Text: # Upper GI bleeding - Stable, s/p 2 units of transfusion and EGD, showing a 1 cm ulcer in the stomach. - Continue protonix. - Follow CBC. # SAMRA on CKD, hypernatremia, hyperchloremia - Cr further improving. - She has a history of nephrotic syndrome. - Follow daily labs # Sinus pause - The patient will be seen by cardiology. Closely monitor. # Overactive bladder - Monitor. # HTN - Continue home medications. # Seizure disorder - Continue home medications Plan/VTE VTE Prophylaxis Ordered?: No VS, I&O, 24H, Fishbone Vital Signs/I&O Vital Signs Date Time Temp Pulse Resp B/P (MAP) Pulse Ox O2 Delivery O2 Flow Rate FiO2 01/31/19 18:30 94/60 (71) 01/31/19 18:00 98.0 70 18 100 01/29/19 06:38 Room Air I&O- Last 24 Hours up to 6 AM 01/31/19 06:00 Intake Total 1290 ml Output Total 900 ml Balance 390 ml Laboratory Data 24H LABS Laboratory Tests 2 01/31/19 01:57: Total Creatine Kinase 27, Creatine Kinase MB 1.0, Creatine Kinase MB Relative Index 4.81H, Troponin I < 0.02 01/31/19 06:17: Nucleated Red Blood Cells % (auto) 0.4H, Immature Platelet Fraction 4.0, Anion Gap 7L, Glomerular Filtration Rate 25.0L, Blood Urea Nitrogen 58H, Creatinine 2.12H, Sodium Level 147H, Potassium Level 3.9, Chloride Level 112H, Carbon Dioxide Level 28, Calcium Level 7.9L, Aspartate Amino Transf (AST/SGOT) 13, Alanine Aminotransferase (ALT/SGPT) 7L, Alkaline Phosphatase 40L, Total Bilirubi n 0.2, Total Protein 5.4L, Albumin 2.3L, Albumin/Globulin Ratio 0.74L 01/31/19 08:50: Troponin I 0.02 CBC/BMP Laboratory Tests 01/31/19 06:17 Red Blood Count 3.03 L, Mean Corpuscular Volume 91.4, Mean Corpuscular Hemoglobin 31.4, Mean Corpuscular Hemoglobin Concent 34.3, Red Cell Distribution Width 17.0 H, Calcium Level 7.9 L, Aspartate Amino Transf (AST/SGOT) 13, Alanine Aminotransferase (ALT/SGPT) 7 L, Alkaline Phosphatase 40 L, Total Bilirubin 0.2, Total Protein 5.4 L, Albumin 2.3 L Microbiology Microbiology 01/28/19 Urine Culture - Final, Complete RENITA MONTIEL MD Jan 31, 2019 21:09
[2019-02-01 04:45] VITALS: BP 94/46
[2019-02-01 05:09] LABS: HEMATOCRIT 29.4 % (36.0-47.0); MEAN CORPUSCULAR HEMOGLOBIN 31.5 pg (27.0-33.0); MEAN CORPUSCULAR VOLUME 92.7 fl (80.0-96.0); PLATELET COUNT, AUTOMATED 107 10^3/uL (150-450); RED BLOOD COUNT 3.17 10^6/uL (4.00-5.40); WHITE BLOOD COUNT 7.1 10^3/uL (4.0-10.0)
[2019-02-01 05:31] LABS: ALBUMIN 2.6 GM/DL (3.2-5.2); BILIRUBIN,TOTAL 0.2 MG/DL (0.2-1.0); CALCIUM LEVEL 8.8 MG/DL (8.8-10.2); CREATININE FOR GFR 1.94 MG/DL (0.55-1.30); GLOMERULAR FILTRATION RATE 27.7 (>45); TOTAL PROTEIN 5.9 GM/DL (6.4-8.2)
[2019-02-01 08:00] VITALS: BP 147/63
[2019-02-01] MEDS: FLUTICASONE HFA 220 MCG 12 GM INHALER (FLOVENT) INH SCH (08:00)
[2019-02-01] MEDS: PANTOPRAZOLE 40MG INJ (PROTONIX) (C9113) IV SCH (09:18)
[2019-02-01] MEDS: DIVALPROEX 500 MG TAB PO SCH (09:18)
[2019-02-01] MEDS: oxyBUTYnin *DITROPAN XL* 5 MG TABCR PO SCH (09:19)
[2019-02-01] MEDS: DIVALPROEX 250 MG TAB PO SCH (09:19)
[2019-02-01] MEDS: FUROSEMIDE 20 MG TAB PO SCH (09:19)
[2019-02-01] MEDS: PRAVASTATIN 20 MG TAB PO SCH (09:19)
[2019-02-01 09:20] VITALS: BP 147/63
[2019-02-01] MEDS: BRIMONIDINE 0.1% OPHTH SOLN 5 ML OU SCH (09:20)
[2019-02-01] MEDS: MAGNESIUM OXIDE 400 MG TAB (MAG-OX) PO SCH (09:30)
[2019-02-01 12:00] VITALS: BP 111/56
[2019-02-01] MEDS ORDERED: PROT1TAB2 PO (12:54)
--- NOTE | 2019-02-01 13:03 | DS.PDOC ---
Discharge Summary General Date of Admission Jan 29, 2019 at 10:08 Date of Discharge 02/01/2019 Discharge Summary PROCEDURES PERFORMED DURING STAY: [None]. ADMITTING DIAGNOSES: 1. Dizziness. DISCHARGE DIAGNOSES: 1. Upper GI bleeding and sinus pause. COMPLICATIONS/CHIEF COMPLAINT: Dehydration, Gi Bleed. HISTORY OF PRESENT ILLNESS: . HOSPITAL COURSE: The patient was found to have significant drop of hemoglobin with repeat Hb was down to 7 from 10, and her baseline Hb is 12. She received 2 units of pRBC transfusion, and repeat Hb is 11.7. GI was consulted, and the patient had urgent EGD, showing a 1 cm ulcer in the stomach. Continue protonix. Repeat CBC has been stable. She was also found to have SAMRA on CKD, hypernatremia, hyperchloremia, and she received normal saline. She has a history of nephrotic syndrome. She was found to have sinus pauses x2, one for 5 sec and the other for 6 sec, right after she received neb treatment. Cardiology was consulted, and metoprolol was discontinued. The patient was moved to ICU for closer monitoring. She did not develop any further sinus pauses. I called Dr. Greene the day of discharge, and, given no further similar episodes off of beta tamiko, she is safe to be discharged. 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 For seizure disorder, continue home medications DISCHARGE MEDICATIONS: Please see below. ALLERGIES: Please see below. PHYSICAL EXAMINATION ON DISCHARGE: VITAL SIGNS: Please see below. General Exam: Positive: Alert Eye Exam: Positive: PERRLA, Conjunctiva & lids normal ENT Exam: Positive: Atraumatic, Mucous membr. moist/pink Neck Exam: Positive: Supple Chest Exam: Positive: Clear to auscultation Heart Exam: Positive: Rate Normal Telemetry: Positive: No significant arrhythmia today, except for a few episodes of bradycardia Abdomen Exam: Positive: Normal bowel sounds Female Exam: Positive: Nl Ext Genitalia Skin Exam: Positive: Nl turgor and temperature Neuro Exam: Positive: Normal Gait Psych Exam: Positive: Mood NL LABORATORY DATA: Please see below. DISCHARGE PLAN: Follow up with cardiology within 1 week, and GI, Dr. Abdi within 2 weeks. Continue protonix BID for 14 days. Vital Signs/I&Os Vital Signs Date Time Temp Pulse Resp B/P (MAP) Pulse Ox O2 Delivery O2 Flow Rate FiO2 02/01/19 09:20 70 147/63 02/01/19 08:00 97.0 18 100 01/29/19 06:38 Room Air I&O- Last 24 Hours up to 6 AM 02/01/19 06:00 Intake Total 2500 ml Output Total 925 ml Balance 1575 ml Laboratory Data Labs 24H Laboratory Tests 2 02/01/19 04:42: Nucleated Red Blood Cells % (auto) 0.4H, Anion Gap 5L, Glomerular Filtration Rate 27.7L, Blood Urea Nitrogen 51H, Creatinine 1.94H, Sodium Level 145, Potassium Level 4.0, Chloride Level 111H, Carbon Dioxide Level 29, Calcium Level 8.8, Aspartate Amino Transf (AST/SGOT) 9, Alanine Aminotransferase (ALT/SGPT) 8L, Alkaline Phosphatase 45, Total Bilirubin 0.2, Total Protein 5.9L, Albumin 2.6L, Albumin/Globulin Ratio 0.79L CBC/BMP Laboratory Tests 02/01/19 04:42 Red Blood Count 3.17 L, Mean Corpuscular Volume 92.7, Mean Corpuscular Hemoglobin 31.5, Mean Corpuscular Hemoglobin Concent 34.0, Red Cell Distribution Width 16.3 H, Calcium Level 8.8, Aspartate Amino Transf (AST/SGOT) 9, Alanine Aminotransferase (ALT/SGPT) 8 L, Alkaline Phosphatase 45, Total Bilirubin 0.2, Total Protein 5.9 L, Albumin 2.6 L Microbiology Microbiology 01/28/19 Urine Culture - Final, Complete Discharge Medications Scheduled Amlodipine Besylate (Amlodipine Besylate) 5 Mg Tablet, 5 MG PO DAILY, (Reported) Ammonium Lactate (Ammonium Lactate) 12% Lotion, 1 DOSE TOP DAILY, (Reported) USES ON FEET Aspirin (Aspirin EC) 81 Mg Tabec, 81 MG PO DAILY, (Reported) Bimatoprost (Lumigan) 50 Drop/2.5 Ml Aisha, 1 DROP OU QHS, (Reported) Brimonidine Tartrate (Alphagan P) 100 Drop/5 Ml Soln, 1 DROP OU BID, (Reported) Divalproex Sodium (Divalproex Sodium) 500 Mg Tab, 500 MG PO BID, (Reported) Divalproex Sodium (Divalproex Sodium) 250 Mg Tablet.dr, 250 MG PO DAILY, (Reported) TAKES WITH 500MG FOR 750MG TOTAL IN THE MORNING Duloxetine Hcl (Cymbalta) 30 Mg Cap, 30 MG PO QHS, (Reported) Fluticasone Propionate (Flovent Hfa) 220 Mcg/Act Aer.w.adap, 2 PUFF INH BID, (Reported) Furosemide (Furosemide) 20 Mg Tablet, 20 MG PO DAILY, (Reported) Gabapentin (Gabapentin) 300 Mg Cap, 300 MG PO QHS, (Reported) Magnesium Oxide (Magnesium Oxide) 400 Mg Tablet, 400 MG PO BID, (Reported) Oxybutynin Chloride (Oxybutynin Chloride ER) 10 Mg Tab, 10 MG PO DAILY, (Reported) Pantoprazole Sodium (Protonix) 40 Mg Tablet.dr, 40 MG PO BID Pravastatin Sodium (Pravastatin Sodium) 20 Mg Tab, 20 MG PO DAILY, (Reported) Scheduled PRN Albuterol Sulfate (Ventolin Hfa) 18 Gm Hfa.aer.ad, 2 PUFF INH Q4H PRN for SHORTNESS OF BREATH, (Reported) Allergies Coded Allergies: FISH (Verified Allergy, Severe, hives, 01/29/19) bee venom protein (honey bee) (Verified Allergy, Severe, hives, 01/29/19) Animal Dander (Verified Allergy, Unknown, 01/29/19) horse dander (Verified Allergy, Unknown, hives, 01/29/19) RENITA MONTIEL MD Feb 01, 2019 13:03
== END 2019-02-01 17:16 | disposition home or self-care (01) | DRG 253 ==
LOC: M ED 18:11 → EDBD 18:11 → M ED INP 18:12 → OBSVTOIN 01-29 10:08 → M MSPAV 01-29 17:59 → M ICU 01-31 23:10
PROVIDERS: ADMIT Student in an Organized Health Care Education/Training Program; ATTEND Internal Medicine
PROC: 0DB68ZX Excision of Stomach, Via Natural or Artificial Opening Endoscopic, Diagnostic (ICD-10-PCS; 2019-01-29)
PROC: 0W3P8ZZ Control Bleeding in Gastrointestinal Tract, Via Natural or Artificial Opening Endoscopic (ICD-10-PCS; 2019-01-29)
PROC: 30233N1 Transfusion of Nonautologous Red Blood Cells into Peripheral Vein, Percutaneous Approach (ICD-10-PCS; principal; 2019-01-29 16:05)
DX: K92.2 Gastrointestinal hemorrhage, unspecified (principal); N17.9 Acute kidney failure, unspecified; E87.0 Hyperosmolality and hypernatremia; E86.0 Dehydration; Z79.899 Other long term (current) drug therapy; Z79.82 Long term (current) use of aspirin; Z91.013 Allergy to seafood; Z91.038 Other insect allergy status; Z87.891 Personal history of nicotine dependence; N18.9 Chronic kidney disease, unspecified; I12.9 Hypertensive chronic kidney disease with stage 1 through stage 4 chronic kidney disease, or unspecified chronic kidney disease; G40.909 Epilepsy, unspecified, not intractable, without status epilepticus; K44.9 Diaphragmatic hernia without obstruction or gangrene; K29.50 Unspecified chronic gastritis without bleeding; E78.5 Hyperlipidemia, unspecified; D62 Acute posthemorrhagic anemia

== ENCOUNTER → 2019-02-11 | Outpatient (REF) | payer OTHER ==
[~2019-02-11] MED LIST changes: +AMLO5TAB6 PO; +AMMO12LO TOP; +FLUT22IN INH; +FURO20TA2 PO; +LASI20TA3 PO; +MAGN400T PO; +METO1TAB32 PO; +PROT1TAB2 PO; +VENTAER INH
[2019-02-11 20:22] LABS: BASO % 0.1 % (0.0-1.0); EOS # 0.1 10^3/uL (0.0-0.50); EOS % 1.8 % (0.0-3.0); HEMATOCRIT 36.1 % (36.0-47.0); HEMOGLOBIN 11.7 g/dl (12.0-15.5); LYMPH # 3.2 10^3/uL (1.5-4.5); LYMPH % 45.2 % (24.0-44.0); MEAN CORPUSCULAR HEMOGLOBIN 31.5 pg (27.0-33.0); MEAN CORPUSCULAR HGB CONC 32.4 g/dl (32.0-36.5); MONO # 0.7 10^3/uL (0.0-0.8); MONO % 9.8 % (0.0-5.0); NEUTROPHILS % 42.7 % (36.0-66.0); PLATELET COUNT, AUTOMATED 172 10^3/uL (150-450); RED BLOOD COUNT 3.72 10^6/uL (4.00-5.40); WHITE BLOOD COUNT 7.1 10^3/uL (4.0-10.0)
== END ==
LOC: M SFHCLERA 17:22
PROVIDERS: ATTEND Family Medicine
DX: K25.4 Chronic or unspecified gastric ulcer with hemorrhage (principal)

== ENCOUNTER 2019-02-24 14:18 | Emergency (ER) | payer OTHER ==
[~2019-02-24] VITALS: Ht 170.2 cm; Wt 70.9 kg
[~2019-02-24 14:18] MED LIST changes: -DULO1CAP2 PO; +DULO1CAP5 PO
[2019-02-24 15:20] LABS: BASO % 0.5 % (0.0-1.0); EOS # 0.4 10^3/uL (0.0-0.50); EOS % 4.9 % (0.0-3.0); HEMATOCRIT 36.4 % (36.0-47.0); HEMOGLOBIN 11.9 g/dl (12.0-15.5); LYMPH # 3.2 10^3/uL (1.5-4.5); LYMPH % 40.1 % (24.0-44.0); MEAN CORPUSCULAR HEMOGLOBIN 31.6 pg (27.0-33.0); MEAN CORPUSCULAR HGB CONC 32.7 g/dl (32.0-36.5); MEAN CORPUSCULAR VOLUME 96.8 fl (80.0-96.0); MONO # 0.9 10^3/uL (0.0-0.8); MONO % 10.7 % (0.0-5.0); NEUTROPHILS # 3.5 10^3/uL (1.8-7.7); NEUTROPHILS % 43.6 % (36.0-66.0); PLATELET COUNT, AUTOMATED 214 10^3/uL (150-450); RED BLOOD COUNT 3.76 10^6/uL (4.00-5.40)
[2019-02-24 15:48] LABS: C REACTIVE PROTEIN QUANTITATIV 2.12 MG/DL (0.00-0.30); CALCIUM LEVEL 9.2 MG/DL (8.8-10.2); CREATININE FOR GFR 2.76 MG/DL (0.55-1.30); GLOMERULAR FILTRATION RATE 18.4 (>45); POTASSIUM SERUM 4.3 MEQ/L (3.5-5.1)
[2019-02-24 15:50] LABS: ERYTHROCYTE SEDIMENTATION RATE 37 mm/hr (0-30)
[2019-02-24] MEDS ORDERED: diphenhydrAMINE INJ 50MG/ML VIAL (J1200) IV STA (16:09)
[2019-02-24] MEDS ORDERED: KETOROLAC 30 MG/ML VIAL (J1885) IV ONE (16:15)
[2019-02-24] MEDS ORDERED: NS 1,000 ML IV ONE (16:15)
[2019-02-24] MEDS ORDERED: CLINDAMYCIN 900 MG in APPROPRIATE DILUENT 1 EA IV ONE (18:30)
[2019-02-24 19:41] VITALS: BP 108/59
[2019-02-24] MEDS ORDERED: CLEO300C2 PO (19:49)
== END 2019-02-24 20:06 | disposition home or self-care (01) ==
LOC: M ED 14:18
DX: L03.115 Cellulitis of right lower limb (principal); L50.0 Allergic urticaria; I12.9 Hypertensive chronic kidney disease with stage 1 through stage 4 chronic kidney disease, or unspecified chronic kidney disease; E78.5 Hyperlipidemia, unspecified; R56.9 Unspecified convulsions; K21.9 Gastro-esophageal reflux disease without esophagitis; M54.9 Dorsalgia, unspecified; Z91.013 Allergy to seafood; Z91.030 Bee allergy status; Z96.643 Presence of artificial hip joint, bilateral
CPT/HCPCS: 80048; 85025; 85652; 86140; 87040; 96361; 96365; 96375; 99284; J1200; J1885

== ENCOUNTER → 2019-03-14 | Outpatient (CLI) | payer OTHER ==
[~2019-03-14] MED LIST changes: +CLEO300C2 PO
--- NOTE | 2019-03-18 02:45 | ECWPNPC ---
PATIENT NAME: NILDA COLBY : 1955 GENDER: FEMALE VISIT DATE: 03/14/2019 DISCHARGE DATE: 03/14/19 1203 VISIT LOCKED DATE TIME: PHYSICIAN: TAYLOR VARGAS RESOURCE: TAYLOR VARGAS DISCLAIMER : THIS IS A VISIT SUMMARY [facility]ED FROM [facility]. IT IS NOT A COPY OF THE [facility] PROGRESS NOTE. ADAM
== END ==
LOC: M PAIN 11:30
PROVIDERS: ATTEND Family Medicine
DX: M51.16 Intervertebral disc disorders with radiculopathy, lumbar region (principal); I12.9 Hypertensive chronic kidney disease with stage 1 through stage 4 chronic kidney disease, or unspecified chronic kidney disease; E78.5 Hyperlipidemia, unspecified; N32.81 Overactive bladder; F32.9 Major depressive disorder, single episode, unspecified; J30.81 Allergic rhinitis due to animal (cat) (dog) hair and dander; G40.909 Epilepsy, unspecified, not intractable, without status epilepticus; K25.9 Gastric ulcer, unspecified as acute or chronic, without hemorrhage or perforation; N18.3 Chronic kidney disease, stage 3 (moderate); M25.562 Pain in left knee; F41.0 Panic disorder [episodic paroxysmal anxiety]; N02.8 Recurrent and persistent hematuria with other morphologic changes; Z96.643 Presence of artificial hip joint, bilateral; Z87.891 Personal history of nicotine dependence; Z79.899 Other long term (current) drug therapy; Z98.41 Cataract extraction status, right eye; Z98.42 Cataract extraction status, left eye; Z91.013 Allergy to seafood; Z88.1 Allergy status to other antibiotic agents

== ENCOUNTER → 2019-03-21 | Outpatient (CLI) | payer OTHER ==
[2019-03-21 12:37] LABS: APPEARANCE, URINE HAZY (CLEAR); BACTERIA, URINE AUTO NEGATIVE (NEGATIVE); BILIRUBIN, URINE AUTO NEGATIVE (NEGATIVE); BLOOD, URINE BLOOD 3+ (NEGATIVE); COLOR, URINE YELLOW (YELLOW); GLUCOSE, URINE (UA) AUTO NEGATIVE (NEGATIVE); KETONE, URINE AUTO NEGATIVE (NEGATIVE); LEUKOCYTE ESTERASE, URINE AUTO NEGATIVE (NEGATIVE); NITRITE, URINE AUTO NEGATIVE (NEGATIVE); PROTEIN, URINE AUTO NEGATIVE (NEGATIVE); RBC, URINE AUTO 35 /HPF (0-3); SPECIFIC GRAVITY URINE AUTO 1.015 (1.002-1.035); SQUAMOUS EPITHELIAL CELL UR AU 0 /HPF (0-6); UROBILINOGEN, URINE AUTO 0.2 mg/dL (0.0-2.0); WBC, URINE AUTO 4 /HPF (0-3)
[2019-03-21 12:40] LABS: HEMATOCRIT 36.9 % (36.0-47.0); MEAN CORPUSCULAR HEMOGLOBIN 31.7 pg (27.0-33.0); MEAN CORPUSCULAR HGB CONC 32.5 g/dl (32.0-36.5); MEAN CORPUSCULAR VOLUME 97.4 fl (80.0-96.0); PLATELET COUNT, AUTOMATED 150 10^3/uL (150-450); RED BLOOD COUNT 3.79 10^6/uL (4.00-5.40); WHITE BLOOD COUNT 4.6 10^3/uL (4.0-10.0)
[2019-03-21 12:47] LABS: ALBUMIN 3.2 GM/DL (3.2-5.2); BILIRUBIN,TOTAL 0.3 MG/DL (0.2-1.0); CALCIUM LEVEL 9.5 MG/DL (8.8-10.2); CHOLESTEROL RISK RATIO 2.602 (<5); CREATININE FOR GFR 2.23 MG/DL (0.55-1.30); GLOMERULAR FILTRATION RATE 23.6 (>45); MAGNESIUM LEVEL 2.1 MG/DL (1.8-2.4); PHOSPHORUS LEVEL 3.8 MG/DL (2.5-4.9); POTASSIUM SERUM 4.3 MEQ/L (3.5-5.1); TOTAL PROTEIN 7.3 GM/DL (6.4-8.2)
[2019-03-21 13:22] LABS: MALB URINE SIEMENS 31.1 MG/L; MAU/CREAT RATIO 15.7 MCG/MG (0.0-30.0)
== END ==
LOC: M LRY 07:45
PROVIDERS: ATTEND Internal Medicine
DX: N18.3 Chronic kidney disease, stage 3 (moderate) (principal); E78.00 Pure hypercholesterolemia, unspecified

== ENCOUNTER → 2019-03-21 | Outpatient (REF) | payer OTHER ==
[2019-03-21 12:40] LABS: BASO % 0.4 % (0.0-1.0); EOS # 0.3 10^3/uL (0.0-0.50); EOS % 6.4 % (0.0-3.0); HEMATOCRIT 35.9 % (36.0-47.0); HEMOGLOBIN 11.7 g/dl (12.0-15.5); LYMPH # 2.5 10^3/uL (1.5-4.5); LYMPH % 52.5 % (24.0-44.0); MEAN CORPUSCULAR HEMOGLOBIN 30.9 pg (27.0-33.0); MEAN CORPUSCULAR HGB CONC 32.6 g/dl (32.0-36.5); MEAN CORPUSCULAR VOLUME 94.7 fl (80.0-96.0); MONO # 0.5 10^3/uL (0.0-0.8); MONO % 9.8 % (0.0-5.0); NEUTROPHILS # 1.4 10^3/uL (1.8-7.7); NEUTROPHILS % 30.7 % (36.0-66.0); PLATELET COUNT, AUTOMATED 152 10^3/uL (150-450); RED BLOOD COUNT 3.79 10^6/uL (4.00-5.40); WHITE BLOOD COUNT 4.7 10^3/uL (4.0-10.0)
[2019-03-21 12:57] LABS: ALBUMIN 3.2 GM/DL (3.2-5.2); BILIRUBIN,TOTAL 0.3 MG/DL (0.2-1.0); CALCIUM LEVEL 9.7 MG/DL (8.8-10.2); CREATININE FOR GFR 2.16 MG/DL (0.55-1.30); FREE T4 0.84 NG/DL (0.76-1.46); GLOMERULAR FILTRATION RATE 24.4 (>45); POTASSIUM SERUM 4.3 MEQ/L (3.5-5.1); THYROID STIMULATING HORMONE 5.5 uIU/ML (0.358-3.740); VALPROIC ACID (DEPAKOTE) 86.1 UG/ML (50.0-100.0)
== END ==
LOC: M SFHCLERA 07:44
PROVIDERS: ATTEND Family Medicine
DX: G40.909 Epilepsy, unspecified, not intractable, without status epilepticus (principal); K27.9 Peptic ulcer, site unspecified, unspecified as acute or chronic, without hemorrhage or perforation; E03.9 Hypothyroidism, unspecified

== ENCOUNTER 2019-05-23 09:48 | Day surgery (SDC) | payer MEDICARE ==
[~2019-05-23] VITALS: Ht 170.2 cm; Wt 70.8 kg
[~2019-05-23 09:48] MED LIST changes: +NS 1,000 ML IV ONE; -OXYB10TA PO; +OXYB10TA2 PO
[2019-05-23] MEDS ORDERED: PROPOFOL 500 MG/50 ML VIAL As Ordered ONE (10:55)
[2019-05-23] MEDS ORDERED: LIDOCAINE 2% INJ 100 MG/5 ML SDV (FOR ANES.) As Ordered ONE (10:55)
[2019-05-23] MEDS ORDERED: fentaNYL 100 MCG/2 ML INJECTION (J3010) As Ordered ONE (10:55)
--- NOTE | 2019-05-23 11:03 | ROOR ---
Patient Name: Doreen Pickering Procedure Date: 05/23/2019 10:47 AM Date of : 1955 Age: 64 Room: [facility] Gender: Female Note Status: Finalized Procedure: Upper GI endoscopy Indications: Follow-up of acute gastric ulcer with hemorrhage Providers: Yobani ABDI MD Referring MD: Dallas SARAH MD Requesting Provider: Medicines: Monitored Anesthesia Care Complications: No immediate complications. Procedure: Pre-Anesthesia Assessment: - The heart rate, respiratory rate, oxygen saturations, blood pressure, adequacy of pulmonary ventilation, and response to care were monitored throughout the procedure. The Endoscope was introduced through the mouth, and advanced to the second part of duodenum. The upper GI endoscopy was accomplished without difficulty. The patient tolerated the procedure well. Findings: The examined esophagus was normal. Localized mildly erythematous mucosa without bleeding was found in the gastric antrum. This was biopsied with a cold forceps for histology. The exam of the stomach was otherwise normal. The examined duodenum was normal. Impression: - Normal esophagus. - Erythematous mucosa in the antrum (at the site of previous ulcer). Biopsied. - Stomach is otherwise normal. - Normal examined duodenum. Recommendation: - Telephone endoscopist for pathology results in 2 weeks. - Continue present medications. Yobani Abdi MD Yobani ABDI MD 05/23/2019 11:03:19 AM Electronically signed by Yobani ABDI MD Number of Addenda: 0 Note Initiated On: 05/23/2019 10:47 AM Estimated Blood Loss: Estimated blood loss: none.
--- NOTE | 2019-05-23 11:38 | ROOR ---
Patient Name: Doreen Pickering Procedure Date: 05/23/2019 10:47 AM Date of : 1955 Age: 64 Room: [facility] Gender: Female Note Status: Finalized Procedure: Colonoscopy Indications: High risk colon cancer surveillance: Personal history of colonic polyps Providers: Yobani ABDI MD Referring MD: Dallas SARAH MD Requesting Provider: Medicines: Monitored Anesthesia Care Complications: No immediate complications. Procedure: Pre-Anesthesia Assessment: - The heart rate, respiratory rate, oxygen saturations, blood pressure, adequacy of pulmonary ventilation, and response to care were monitored throughout the procedure. The Colonoscope was introduced through the anus and advanced to the terminal ileum, with identification of the appendiceal orifice and IC valve. The colonoscopy was somewhat difficult due to a redundant colon. The patient tolerated the procedure well. The quality of the bowel preparation was good. Findings: The perianal and digital rectal examinations were normal. A 8 mm polyp was found in the proximal sigmoid colon. The polyp was semi-sessile. The polyp was removed with a cold snare. Resection and retrieval were complete. The exam was otherwise normal throughout the examined colon. Impression: - Redundant colon. - One 8 mm polyp in the proximal sigmoid colon, removed with a cold snare. Resected and retrieved. - Otherwise normal to cecum and terminal ileum. Recommendation: - Repeat colonoscopy in 3 - 5 years for surveillance based on pathology results. - Telephone endoscopist for pathology results in 2 weeks. Yobani Abdi MD Yobani ABDI MD 05/23/2019 11:37:59 AM Electronically signed by Yobani ABDI MD Number of Addenda: 0 Note Initiated On: 05/23/2019 10:47 AM Estimated Blood Loss: Estimated blood loss: none.
[2019-05-23 12:00] VITALS: BP 136/68
== END 2019-05-23 12:12 | disposition home or self-care (01) ==
LOC: M OPP 09:48
PROVIDERS: ATTEND Internal Medicine Gastroenterology
DX: Z86.010 Personal history of colon polyps (principal); D12.5 Benign neoplasm of sigmoid colon; Q43.8 Other specified congenital malformations of intestine; Z09 Encounter for follow-up examination after completed treatment for conditions other than malignant neoplasm; K31.89 Other diseases of stomach and duodenum; K25.0 Acute gastric ulcer with hemorrhage; Z79.899 Other long term (current) drug therapy; Z91.030 Bee allergy status; Z91.013 Allergy to seafood; Z88.1 Allergy status to other antibiotic agents; Z87.891 Personal history of nicotine dependence
CPT/HCPCS: 43239; 45385; 88305; J3010

== ENCOUNTER → 2019-07-02 | Outpatient (REF) | payer MEDICARE, OTHER ==
[~2019-07-02] MED LIST changes: -MAGN400T PO; +MAGN400T3 PO; -NS 1,000 ML IV ONE
== END ==
LOC: M SFHCLERA 09:52
PROVIDERS: ATTEND Nurse Practitioner Family
DX: N39.41 Urge incontinence (principal)

== ENCOUNTER → 2019-07-02 | Outpatient (CLI) | payer MEDICARE, OTHER ==
--- NOTE | 2019-07-02 10:47 | REP ---
Left foot series: Four views. History: Foot pain. Findings: Four views of the left foot show diffuse osteopenia. There is a mild hallux valgus. No bony erosive changes seen. Bones, joints and soft tissues are otherwise unremarkable. Impression: Diffuse osteopenia. Mild hallux valgus. Otherwise negative. Electronically Signed by Ernie Cavazos MD 07/02/2019 10:38 A
== END ==
LOC: M LRY 10:01
PROVIDERS: ATTEND Nurse Practitioner Family
DX: M85.862 Other specified disorders of bone density and structure, left lower leg (principal); M20.12 Hallux valgus (acquired), left foot; M79.672 Pain in left foot; N39.41 Urge incontinence
CPT/HCPCS: 73630; 81002; 87086; G0463

== ENCOUNTER → 2019-07-16 | Outpatient (CLI) | payer MEDICARE, OTHER ==
--- NOTE | 2019-07-16 15:26 | REP ---
Two-view chest: 07/16/2019. Indication: Chest pain. Comparison: 01/28/2019. Findings: The lungs are clear. There is no pleural effusion or pneumothorax. The lungs are hyperinflated. Slightly elevated left hemidiaphragm and moderately dilated colonic splenic flexure without air fluid levels is noted. The cardiomediastinal silhouette is unremarkable. Impression: No acute cardiopulmonary process. Electronically Signed by Peterson Berrios DO 07/16/2019 03:17 P
== END ==
LOC: M LRY 13:18
PROVIDERS: ATTEND Family Medicine
DX: R07.81 Pleurodynia (principal); E03.9 Hypothyroidism, unspecified; G40.909 Epilepsy, unspecified, not intractable, without status epilepticus; R31.29 Other microscopic hematuria; N18.4 Chronic kidney disease, stage 4 (severe); R63.4 Abnormal weight loss; Z23 Encounter for immunization
CPT/HCPCS: 71046; 80053; 80164; 83735; 84439; 84443; 85025; 90682; G0008; G0463

== ENCOUNTER → 2019-07-16 | Outpatient (REF) | payer MEDICARE, OTHER ==
[2019-07-16 20:28] LABS: HEMATOCRIT 37.1 % (36.0-47.0); HEMOGLOBIN 12.4 g/dl (12.0-15.5); MEAN CORPUSCULAR HEMOGLOBIN 32.5 pg (27.0-33.0); MEAN CORPUSCULAR HGB CONC 33.4 g/dl (32.0-36.5); MEAN CORPUSCULAR VOLUME 97.4 fl (80.0-96.0); PLATELET COUNT, AUTOMATED 178 10^3/uL (150-450); RED BLOOD COUNT 3.81 10^6/uL (4.00-5.40); WHITE BLOOD COUNT 9.2 10^3/uL (4.0-10.0)
[2019-07-16 20:34] LABS: ALBUMIN 3.5 GM/DL (3.2-5.2); BILIRUBIN,TOTAL 0.4 MG/DL (0.2-1.0); CREATININE FOR GFR 2.46 MG/DL (0.55-1.30); FREE T4 0.92 NG/DL (0.76-1.46); MAGNESIUM LEVEL 1.8 MG/DL (1.8-2.4); POTASSIUM SERUM 4.2 MEQ/L (3.5-5.1); THYROID STIMULATING HORMONE 4.99 uIU/ML (0.358-3.740); VALPROIC ACID (DEPAKOTE) 43.9 UG/ML (50.0-100.0)
[2019-07-16 21:13] LABS: ANISOCYTOSIS 1+; EOSINOPHILS 6 % (0-3); LYMPHOCYTES 55 % (16-44); MONOCYTES 3 % (0-5); NEUTROPHILS 36 % (28-66); PLATELET ESTIMATE NORMAL (NORMAL)
== END ==
LOC: M SFHCLERA 12:51
PROVIDERS: ATTEND Family Medicine
DX: E03.9 Hypothyroidism, unspecified (principal); G40.909 Epilepsy, unspecified, not intractable, without status epilepticus; R31.29 Other microscopic hematuria; N18.4 Chronic kidney disease, stage 4 (severe); R63.4 Abnormal weight loss

== ENCOUNTER → 2019-08-05 | Outpatient (CLI) | payer MEDICARE, OTHER ==
[2019-08-05 20:19] LABS: HEMATOCRIT 36.2 % (36.0-47.0); HEMOGLOBIN 12.3 g/dl (12.0-15.5); MEAN CORPUSCULAR HEMOGLOBIN 32.4 pg (27.0-33.0); MEAN CORPUSCULAR VOLUME 95.3 fl (80.0-96.0); PLATELET COUNT, AUTOMATED 143 10^3/uL (150-450); WHITE BLOOD COUNT 7.3 10^3/uL (4.0-10.0)
[2019-08-05 20:25] LABS: APPEARANCE, URINE CLEAR (CLEAR); BACTERIA, URINE AUTO NEGATIVE (NEGATIVE); BILIRUBIN, URINE AUTO NEGATIVE (NEGATIVE); BLOOD, URINE BLOOD 3+ (NEGATIVE); COLOR, URINE STRAW (YELLOW); GLUCOSE, URINE (UA) AUTO NEGATIVE (NEGATIVE); KETONE, URINE AUTO NEGATIVE (NEGATIVE); LEUKOCYTE ESTERASE, URINE AUTO NEGATIVE (NEGATIVE); NITRITE, URINE AUTO NEGATIVE (NEGATIVE); PROTEIN, URINE AUTO NEGATIVE (NEGATIVE); RBC, URINE AUTO 93 /HPF (0-3); SPECIFIC GRAVITY URINE AUTO 1.008 (1.002-1.035); SQUAMOUS EPITHELIAL CELL UR AU 0 /HPF (0-6); UROBILINOGEN, URINE AUTO 0.2 mg/dL (0.0-2.0); WBC, URINE AUTO 1 /HPF (0-3)
[2019-08-05 20:27] LABS: ALBUMIN 3.5 GM/DL (3.2-5.2); BILIRUBIN,TOTAL 0.3 MG/DL (0.2-1.0); CALCIUM LEVEL 8.9 MG/DL (8.8-10.2); CREATININE FOR GFR 1.86 MG/DL (0.55-1.30); GLOMERULAR FILTRATION RATE 28.9 (>45); TOTAL PROTEIN 7.9 GM/DL (6.4-8.2)
[2019-08-05 20:56] LABS: CREATININE, URINE 23.3 MG/DL; MALB URINE SIEMENS 8.7 MG/L; MAU/CREAT RATIO 37.3 MCG/MG (0.0-30.0)
== END ==
LOC: M LRY 15:20
PROVIDERS: ATTEND Internal Medicine
DX: N18.3 Chronic kidney disease, stage 3 (moderate) (principal)

== ENCOUNTER → 2019-09-09 | Outpatient (CLI) | payer MEDICARE, MEDICAID ==
[~2019-09-09] MED LIST changes: -OXYB10TA2 PO; +OXYB10TA23 PO
--- NOTE | 2019-09-09 11:08 | REPMRS ---
Patient History The patient states she has not had a clinical breast exam in over a year. Patient is postmenopausal. Family history of ovarian cancer at age 50 or over in mother, lung cancer in father. Benign stereotactic core biopsy of the left breast, 2012. Benign excisional biopsy of the right breast, 1983. Took estrogen for 2 years. Digital Mammo Screening Bilat: September 09, 2019 - Exam #: [id number] Bilateral CC and MLO view(s) were taken. Technologist: Edyta Beatty, Technologist Prior study comparison: December 15, 2016, digital woman screen mammo, performed at [facility]. 2014, digital bilateral screening mammo, performed at [facility]. FINDINGS: There are scattered fibroglandular densities. There is a needle biopsy marker clip again noted superiorly in the left breast. There has been no change in the appearance of the mammogram from the prior studies. There is a mild amount of scattered fibroglandular density which is fairly symmetric. There is no interval development of dominant mass, architectural distortion, or grouped microcalcification suggestive of malignancy. 3-D tomosynthesis shows no additional findings. Assessment: BI-RADS/ACR category 2 mammogram. Benign Findings. Recommendation Routine screening mammogram of both breasts in 1 year (for women over age 40). This patient's Lifetime Breast Cancer Risk is estimated at 6.0 %. This mammogram was interpreted with the aid of an FDA-approved computer-aided dectection system. Electronically Signed By: Kartik Cavazos MD 09/09/19 [id number]
== END ==
LOC: M RAD 09:27
PROVIDERS: ATTEND Family Medicine
DX: Z12.31 Encounter for screening mammogram for malignant neoplasm of breast (principal); Z78.0 Asymptomatic menopausal state; Z80.41 Family history of malignant neoplasm of ovary; Z80.1 Family history of malignant neoplasm of trachea, bronchus and lung

== ENCOUNTER → 2019-10-15 | Outpatient (CLI) | payer MEDICARE, MEDICAID ==
[2019-10-15 20:13] LABS: HEMATOCRIT 39.3 % (36.0-47.0); HEMOGLOBIN 13.4 g/dl (12.0-15.5); MEAN CORPUSCULAR HEMOGLOBIN 32.1 pg (27.0-33.0); MEAN CORPUSCULAR HGB CONC 34.1 g/dl (32.0-36.5); MEAN CORPUSCULAR VOLUME 94.2 fl (80.0-96.0); PLATELET COUNT, AUTOMATED 205 10^3/uL (150-450); RED BLOOD COUNT 4.17 10^6/uL (4.00-5.40); WHITE BLOOD COUNT 6.6 10^3/uL (4.0-10.0)
[2019-10-15 20:19] LABS: ALBUMIN 3.8 GM/DL (3.2-5.2); BILIRUBIN,TOTAL 0.2 MG/DL (0.2-1.0); CALCIUM LEVEL 9.6 MG/DL (8.8-10.2); CREATININE FOR GFR 1.82 MG/DL (0.55-1.30); GLOMERULAR FILTRATION RATE 29.7 (>45); POTASSIUM SERUM 4.9 MEQ/L (3.5-5.1); TOTAL PROTEIN 8.3 GM/DL (6.4-8.2)
[2019-10-15 20:22] LABS: APPEARANCE, URINE CLEAR (CLEAR); BACTERIA, URINE AUTO 1+ (NEGATIVE); BILIRUBIN, URINE AUTO NEGATIVE (NEGATIVE); BLOOD, URINE BLOOD 3+ (NEGATIVE); COLOR, URINE YELLOW (YELLOW); GLUCOSE, URINE (UA) AUTO NEGATIVE (NEGATIVE); KETONE, URINE AUTO NEGATIVE (NEGATIVE); LEUKOCYTE ESTERASE, URINE AUTO 1+ (NEGATIVE); NITRITE, URINE AUTO NEGATIVE (NEGATIVE); PROTEIN, URINE AUTO NEGATIVE (NEGATIVE); RBC, URINE AUTO 80 /HPF (0-3); SPECIFIC GRAVITY URINE AUTO 1.011 (1.002-1.035); SQUAMOUS EPITHELIAL CELL UR AU 0 /HPF (0-6); UROBILINOGEN, URINE AUTO 0.2 mg/dL (0.0-2.0); WBC, URINE AUTO 21 /HPF (0-3)
[2019-10-15 20:53] LABS: CREATININE, URINE 83.1 MG/DL; CREATININE,RANDOM URINE 83.1 MG/DL; MALB URINE SIEMENS 67.4 MG/L; MAU/CREAT RATIO 81.1 MCG/MG (0.0-30.0)
== END ==
LOC: M LRY 16:43
PROVIDERS: ATTEND Internal Medicine
DX: N18.3 Chronic kidney disease, stage 3 (moderate) (principal)

== ENCOUNTER → 2019-12-16 | Outpatient (CLI) | payer MEDICARE, MEDICAID | LOC: M LRY 10:33 | DX: M10.9 Gout, unspecified (principal); Z53.9 Procedure and treatment not carried out, unspecified reason ==

== ENCOUNTER → 2019-12-18 | Outpatient (CLI) | payer MEDICARE, MEDICAID ==
[2019-12-18 11:51] LABS: BASO % 0.5 % (0.0-1.0); EOS # 0.3 10^3/uL (0.0-0.5); EOS % 4.8 % (0.0-3.0); HEMATOCRIT 37.9 % (36.0-47.0); HEMOGLOBIN 12.8 g/dl (12.0-15.5); LYMPH % 60.5 % (24.0-44.0); MEAN CORPUSCULAR HEMOGLOBIN 31.4 pg (27.0-33.0); MEAN CORPUSCULAR HGB CONC 33.8 g/dl (32.0-36.5); MEAN CORPUSCULAR VOLUME 93.1 fl (80.0-96.0); MONO # 0.5 10^3/uL (0.0-0.8); MONO % 7.4 % (0.0-5.0); NEUTROPHILS # 1.8 10^3/uL (1.5-8.5); NEUTROPHILS % 26.6 % (36.0-66.0); PLATELET COUNT, AUTOMATED 250 10^3/uL (150-450); RED BLOOD COUNT 4.07 10^6/uL (4.00-5.40); WHITE BLOOD COUNT 6.6 10^3/uL (4.0-10.0)
[2019-12-18 12:08] LABS: ALBUMIN 3.2 GM/DL (3.2-5.2); BILIRUBIN,TOTAL 0.4 MG/DL (0.2-1.0); CALCIUM LEVEL 9.3 MG/DL (8.8-10.2); CREATININE FOR GFR 2.37 MG/DL (0.55-1.30); GLOMERULAR FILTRATION RATE 21.9 (>45); POTASSIUM SERUM 3.7 MEQ/L (3.5-5.1); TOTAL PROTEIN 7.7 GM/DL (6.4-8.2); URIC ACID 3.7 MG/DL (2.6-6.0)
[2019-12-18 12:12] LABS: ERYTHROCYTE SEDIMENTATION RATE 26 mm/hr (0-30)
== END ==
LOC: M LRY 09:03
DX: M10.9 Gout, unspecified (principal)

== ENCOUNTER → 2020-03-30 | Outpatient (REF) | payer MEDICARE, MEDICAID ==
[~2020-03-30] MED LIST changes: +AMLO1TAB24 PO; -AMLO5TAB6 PO; +PANT40TA29 PO; -PANT40TA3 PO
[2020-04-26 12:29] LABS: HEMATOCRIT 46.4 % (36.0-47.0); HEMOGLOBIN 13.7 g/dl (12.0-15.5); MEAN CORPUSCULAR HEMOGLOBIN 30.4 pg (27.0-33.0); MEAN CORPUSCULAR HGB CONC 29.5 g/dl (32.0-36.5); MEAN CORPUSCULAR VOLUME 103.1 fl (80.0-96.0); WHITE BLOOD COUNT 6.5 10^3/uL (4.0-10.0)
[2020-04-26 13:57] LABS: APPEARANCE, URINE MANUAL CLEAR (CLEAR)
[2020-04-26 13:58] LABS: BILIRUBIN, URINE MANUAL NEGATIVE (NEGATIVE); BLOOD URINE MANUAL POSITIVE (NEGATIVE); COLOR, URINE MANUAL YELLOW (YELLOW); GLUCOSE, URINE (UA) MANUAL NEGATIVE (NEGATIVE); KETONE, URINE MANUAL NEGATIVE (NEGATIVE); LEUKOCYTE ESTERASE, URINE MAN NEGATIVE (NEGATIVE); NITRITE, URINE MANUAL NEGATIVE (NEGATIVE); PROTEIN, URINE MANUAL NEGATIVE (NEGATIVE); SQUAMOUS EPITHELIAL CELL URINE SMALL AMOUNT /hpf (SMALL AMT); UROBILINOGEN, URINE MANUAL NORMAL (NORMAL); WBC, URINE 0-1 /hpf (0-3)
[2020-05-29 11:23] LABS: ALBUMIN 3.4 GM/DL (3.2-5.2); BILIRUBIN,TOTAL 0.3 MG/DL (0.2-1.0); C REACTIVE PROTEIN QUANTITATIV 0.3 MG/DL (0.00-0.30); CALCIUM LEVEL 9.1 MG/DL (8.8-10.2); CHOLESTEROL RISK RATIO 2.743 (<5); CREATININE FOR GFR 1.46 MG/DL (0.55-1.30); GLOMERULAR FILTRATION RATE 38.2 (>45); MAU/CREAT RATIO 63.6 MCG/MG (0.0-30.0); POTASSIUM SERUM 4.6 MEQ/L (3.5-5.1); TOTAL PROTEIN 7.1 GM/DL (6.4-8.2); VALPROIC ACID (DEPAKOTE) 85.9 UG/ML (50.0-100.0)
== END ==
LOC: M LABSMT 07:56 → M WUC 07:56
PROVIDERS: ATTEND Internal Medicine
DX: N18.3 Chronic kidney disease, stage 3 (moderate) (principal); M06.9 Rheumatoid arthritis, unspecified; G40.909 Epilepsy, unspecified, not intractable, without status epilepticus; E78.00 Pure hypercholesterolemia, unspecified

== ENCOUNTER → 2020-08-03 | Outpatient (CLI) | payer MEDICARE, MEDICAID | LOC: EEVIPCON 10:48 → M LABSMTC 10:48 | PROVIDERS: ATTEND Family Medicine | DX: Z11.59 Encounter for screening for other viral diseases (principal) ==

== ENCOUNTER → 2020-12-21 | Outpatient (REF) | payer MEDICARE, MEDICAID ==
[~2020-12-21] MED LIST changes: +ASPI-569 PO; -ASPI81TAEC PO; +GABA-282 PO; -GABA-843 PO; -LISI-538 PO; +LISI20TA33 PO
== END ==
LOC: M SFHCLERA 13:59
PROVIDERS: ATTEND Nurse Practitioner Family
DX: R10.30 Lower abdominal pain, unspecified (principal)

== ENCOUNTER → 2020-12-21 | Outpatient (REF) | payer MEDICARE, MEDICAID | LOC: M SFHCLERA 11:18 | PROVIDERS: ATTEND Nurse Practitioner Family | DX: R10.30 Lower abdominal pain, unspecified (principal) ==

== ENCOUNTER → 2020-12-21 | Outpatient (CLI) | payer MEDICARE, MEDICAID ==
[2020-12-21 16:39] LABS: CREATININE FOR GFR 1.45 MG/DL (0.55-1.30); GLOMERULAR FILTRATION RATE 38.5 (>45)
== END ==
LOC: M WUC 14:28
PROVIDERS: ATTEND Nurse Practitioner Family
DX: R10.30 Lower abdominal pain, unspecified (principal)
CPT/HCPCS: 36415; 81002; 82565; 87088; 87186; G0463

== ENCOUNTER → 2021-01-04 | Outpatient (REF) | payer MEDICARE, MEDICAID | LOC: M SFHCLERA 11:06 | PROVIDERS: ATTEND Nurse Practitioner Family | DX: R30.0 Dysuria (principal) ==

== ENCOUNTER → 2021-03-08 | Outpatient (CLI) | payer MEDICARE, OTHER ==
[~2021-03-08] MED LIST changes: -MAGN400T3 PO; +MAGN400T33 PO
== END ==
LOC: M WHC 08:37
PROVIDERS: ATTEND Advanced Practice Midwife
DX: Z01.419 Encounter for gynecological examination (general) (routine) without abnormal findings (principal); Z12.31 Encounter for screening mammogram for malignant neoplasm of breast; N63.25 Unspecified lump in the left breast, overlapping quadrants
CPT/HCPCS: 77063; 77067; G0101

== ENCOUNTER → 2021-03-24 | Outpatient (CLI) | payer MEDICARE, OTHER ==
[~2021-03-24] MED LIST changes: +MAGN400T3 PO; -MAGN400T33 PO
[2021-03-24 14:32] LABS: APPEARANCE, URINE HAZY (CLEAR); BACTERIA, URINE AUTO 1+ (NEGATIVE); BILIRUBIN, URINE AUTO NEGATIVE (NEGATIVE); BLOOD, URINE BLOOD 1+ (NEGATIVE); COLOR, URINE YELLOW (YELLOW); GLUCOSE, URINE (UA) AUTO NEGATIVE (NEGATIVE); KETONE, URINE AUTO TRACE mg/dL (NEGATIVE); LEUKOCYTE ESTERASE, URINE AUTO 2+ (NEGATIVE); NITRITE, URINE AUTO NEGATIVE (NEGATIVE); PROTEIN, URINE AUTO 1+ mg/dL (NEGATIVE); RBC, URINE AUTO 7 /HPF (0-3); SPECIFIC GRAVITY URINE AUTO 1.014 (1.002-1.035); SQUAMOUS EPITHELIAL CELL UR AU 0 /HPF (0-6); WBC, URINE AUTO 125 /HPF (0-3)
[2021-03-24 14:34] LABS: HEMATOCRIT 43.8 % (36.0-47.0); HEMOGLOBIN 14.6 g/dl (12.0-15.5); MEAN CORPUSCULAR HEMOGLOBIN 31.9 pg (27.0-33.0); MEAN CORPUSCULAR HGB CONC 33.3 g/dl (32.0-36.5); MEAN CORPUSCULAR VOLUME 95.8 fl (80.0-96.0); PLATELET COUNT, AUTOMATED 129 10^3/uL (150-450); RED BLOOD COUNT 4.57 10^6/uL (4.00-5.40); WHITE BLOOD COUNT 7.5 10^3/uL (4.0-10.0)
[2021-03-24 15:04] LABS: ALBUMIN 3.7 GM/DL (3.2-5.2); BILIRUBIN,TOTAL 0.4 MG/DL (0.2-1.0); CALCIUM LEVEL 9.8 MG/DL (8.8-10.2); CREATININE FOR GFR 1.83 MG/DL (0.55-1.30); GLOMERULAR FILTRATION RATE 29.4 (>45); POTASSIUM SERUM 5.9 MEQ/L (3.5-5.1); TOTAL PROTEIN 7.5 GM/DL (6.4-8.2); VALPROIC ACID (DEPAKOTE) 133.2 UG/ML (50.0-100.0)
[2021-03-24 15:13] LABS: MALB URINE SIEMENS 79.3 MG/L; MAU/CREAT RATIO 71.4 MCG/MG (0.0-30.0)
== END ==
LOC: M PLALAB 12:47
PROVIDERS: ATTEND Internal Medicine
DX: N18.4 Chronic kidney disease, stage 4 (severe) (principal); G40.909 Epilepsy, unspecified, not intractable, without status epilepticus

== ENCOUNTER → 2021-03-24 | Outpatient (CLI) | payer MEDICARE, OTHER ==
--- NOTE | 2021-03-24 11:58 | REP ---
INDICATION: ADDITIONAL VIEWS LT BREAST. COMPARISON: Multiple the latest prior screening examination 03/08/2021 showed a potential collins density in the left breast near the 6 o'clock position TECHNIQUE: Diagnostic digital magnified and standard DBT spot views were obtained. FINDINGS: The asymmetric density seen on the prior screening examination in the left breast has compressed out to normal breast parenchyma. No abnormalities are identified. IMPRESSION: BIRADS/ACR category 2 benign findings.. There is no evidence of malignant alteration of the left breast. The patient letter being requested is M1. RECOMMENDATION: Repeat screening mammography recommended 1 year (for women over 40). <Electronically signed by Jeremy Phillips > 03/24/21 [id number]
== END ==
LOC: M WHC 11:13
PROVIDERS: ATTEND Advanced Practice Midwife
DX: R92.2 Inconclusive mammogram (principal)
CPT/HCPCS: 77065; G0279

== ENCOUNTER → 2022-02-21 | Outpatient (CLI) | payer MEDICARE, OTHER ==
[~2022-02-21] MED LIST changes: -MAGN400T3 PO; +MAGN400T33 PO
== END ==
LOC: M PAIN 08:30
PROVIDERS: ATTEND Nurse Practitioner Family
DX: M25.551 Pain in right hip (principal); G89.29 Other chronic pain; G40.909 Epilepsy, unspecified, not intractable, without status epilepticus; Z86.59 Personal history of other mental and behavioral disorders; Z96.643 Presence of artificial hip joint, bilateral; Z87.891 Personal history of nicotine dependence; Z88.1 Allergy status to other antibiotic agents; Z91.030 Bee allergy status; Z91.09 Other allergy status, other than to drugs and biological substances; Z79.899 Other long term (current) drug therapy

== ENCOUNTER → 2023-03-05 | Outpatient (CLI) | payer MEDICARE, OTHER ==
[~2023-03-05] MED LIST changes: +FLUT50SP17; -FLUTISP
[2023-03-05 11:56] LABS: BASO % 0.4 % (0.0-1.0); EOS # 0.3 10^3/uL (0.0-0.5); EOS % 4.4 % (0.0-3.0); HEMOGLOBIN 11.7 g/dl (12.0-15.5); LYMPH # 3.7 10^3/uL (1.5-5.0); LYMPH % 49.2 % (24.0-44.0); MEAN CORPUSCULAR HEMOGLOBIN 31.4 pg (27.0-33.0); MEAN CORPUSCULAR HGB CONC 33.4 g/dl (32.0-36.5); MEAN CORPUSCULAR VOLUME 93.8 fl (80.0-96.0); MONO # 0.8 10^3/uL (0.0-0.8); MONO % 10.8 % (2.0-8.0); NEUTROPHILS # 2.6 10^3/uL (1.5-8.5); NEUTROPHILS % 34.9 % (36.0-66.0); PLATELET COUNT, AUTOMATED 158 10^3/uL (150-450); RED BLOOD COUNT 3.73 10^6/uL (4.00-5.40); WHITE BLOOD COUNT 7.4 10^3/uL (4.0-10.0)
[2023-03-05 12:23] LABS: THYROID STIMULATING HORMONE 5.861 uIU/ML (0.55-4.78)
[2023-03-05 12:24] LABS: ALBUMIN 3.5 G/DL (3.2-5.2); ALKALINE PHOSPHATASE 71 U/L (46-116); ALT/SGPT < 9 U/L (7.0-40); AST/SGOT < 8 U/L (<34); BILIRUBIN,TOTAL 0.4 MG/DL (0.3-1.2); BLOOD UREA NITROGEN 33 MG/DL (9-23); CALCIUM LEVEL 8.8 MG/DL (8.3-10.6); CARBON DIOXIDE LEVEL 24 MMOL/L (20-31); CHLORIDE LEVEL 111 MMOL/L (98-107); CHOLESTEROL LEVEL 192 MG/DL (<200); CHOLESTEROL RISK RATIO 2.27 (<5); CREATININE FOR GFR 1.51 MG/DL (0.55-1.30); GLOMERULAR FILTRATION RATE 36.5 (>45); GLUCOSE, FASTING 76 MG/DL (74-106); HDL CHOLESTEROL 84.3 MG/DL (>40); LDL CHOLESTEROL 89.7 MG/DL (<100); NON-HDL-C 107.7 MG/DL; POTASSIUM SERUM 4.6 MMOL/L (3.5-5.1); SODIUM LEVEL 141 MMOL/L (136-145); TRIGLYCERIDES LEVEL 90 MG/DL (<150)
[2023-03-05 12:25] LABS: FREE T4 1.09 NG/DL (0.89-1.76)
[2023-03-05 12:26] LABS: FOLATE 15.95 NG/ML (>5.4); VITAMIN B12 LEVEL 428 PG/ML (211-911)
== END ==
LOC: M WUC 08:32
PROVIDERS: ATTEND Family Medicine
DX: R41.3 Other amnesia (principal); N02.8 Recurrent and persistent hematuria with other morphologic changes; E78.2 Mixed hyperlipidemia

== ENCOUNTER → 2023-03-22 | Outpatient (REF) | payer MEDICARE, OTHER ==
[2023-03-22 10:34] LABS: APPEARANCE, URINE CLOUDY (CLEAR); BACTERIA, URINE AUTO 2+ (NEGATIVE); BILIRUBIN, URINE AUTO NEGATIVE (NEGATIVE); BLOOD, URINE BLOOD 3+ (NEGATIVE); COLOR, URINE YELLOW (YELLOW); GLUCOSE, URINE (UA) AUTO NEGATIVE (NEGATIVE); KETONE, URINE AUTO NEGATIVE (NEGATIVE); LEUKOCYTE ESTERASE, URINE AUTO 3+ (NEGATIVE); NITRITE, URINE AUTO NEGATIVE (NEGATIVE); PROTEIN, URINE AUTO NEGATIVE (NEGATIVE); RBC, URINE AUTO TNTC /HPF (0-3); SPECIFIC GRAVITY URINE AUTO 1.016 (1.002-1.035); SQUAMOUS EPITHELIAL CELL UR AU 0 /HPF (0-6); UROBILINOGEN, URINE AUTO 0.2 mg/dL (0.0-2.0); WBC, URINE AUTO TNTC /HPF (0-3)
== END ==
LOC: M LABWUC 09:42
PROVIDERS: ATTEND Internal Medicine
DX: R31.9 Hematuria, unspecified (principal)

== ENCOUNTER → 2023-12-18 | Outpatient (CLI) | payer MEDICARE, OTHER ==
[~2023-12-18] MED LIST changes: -FLUT50SP17; +FLUTISP
== END ==
LOC: M PAIN 08:00
PROVIDERS: ATTEND Nurse Practitioner Family
DX: M25.551 Pain in right hip (principal); M25.552 Pain in left hip; N18.4 Chronic kidney disease, stage 4 (severe); I12.9 Hypertensive chronic kidney disease with stage 1 through stage 4 chronic kidney disease, or unspecified chronic kidney disease; E78.5 Hyperlipidemia, unspecified; N32.81 Overactive bladder; F32.A Depression, unspecified; G40.909 Epilepsy, unspecified, not intractable, without status epilepticus; Z79.899 Other long term (current) drug therapy; Z87.891 Personal history of nicotine dependence; Z88.1 Allergy status to other antibiotic agents; Z91.013 Allergy to seafood; Z91.030 Bee allergy status

== ENCOUNTER → 2024-01-09 | Outpatient (CLI) | payer MEDICARE, MEDICAID | LOC: M PLAIMG 10:34 | PROVIDERS: ATTEND Nurse Practitioner Family | DX: M25.551 Pain in right hip (principal) ==

== ENCOUNTER → 2024-01-25 | Outpatient (CLI) | payer MEDICARE, OTHER | LOC: M PAIN 14:30 | PROVIDERS: ATTEND Nurse Practitioner Family | DX: M51.16 Intervertebral disc disorders with radiculopathy, lumbar region (principal); N18.4 Chronic kidney disease, stage 4 (severe); I12.9 Hypertensive chronic kidney disease with stage 1 through stage 4 chronic kidney disease, or unspecified chronic kidney disease; E78.5 Hyperlipidemia, unspecified; N32.81 Overactive bladder; F32.A Depression, unspecified; G40.909 Epilepsy, unspecified, not intractable, without status epilepticus; Z87.891 Personal history of nicotine dependence; Z79.899 Other long term (current) drug therapy; Z91.013 Allergy to seafood; Z88.1 Allergy status to other antibiotic agents; Z91.048 Other nonmedicinal substance allergy status ==

== ENCOUNTER → 2024-02-20 | Outpatient (CLI) | payer MEDICARE | LOC: M PLAIMG 08:36 | PROVIDERS: ATTEND Nurse Practitioner Family | DX: M51.16 Intervertebral disc disorders with radiculopathy, lumbar region (principal); M51.36 Other intervertebral disc degeneration, lumbar region; M51.37 Other intervertebral disc degeneration, lumbosacral region; N28.1 Cyst of kidney, acquired; M47.896 Other spondylosis, lumbar region; M48.061 Spinal stenosis, lumbar region without neurogenic claudication ==

== ENCOUNTER → 2024-02-29 | Outpatient (CLI) | payer MEDICARE, OTHER | LOC: M PAIN 15:00 | PROVIDERS: ATTEND Nurse Practitioner Family | DX: M51.16 Intervertebral disc disorders with radiculopathy, lumbar region (principal); M25.552 Pain in left hip; M25.551 Pain in right hip; N18.4 Chronic kidney disease, stage 4 (severe); I12.9 Hypertensive chronic kidney disease with stage 1 through stage 4 chronic kidney disease, or unspecified chronic kidney disease; E78.5 Hyperlipidemia, unspecified; N32.81 Overactive bladder; F32.A Depression, unspecified; G40.909 Epilepsy, unspecified, not intractable, without status epilepticus; Z79.899 Other long term (current) drug therapy; Z87.891 Personal history of nicotine dependence; Z91.013 Allergy to seafood; Z88.1 Allergy status to other antibiotic agents; Z91.048 Other nonmedicinal substance allergy status; Z91.030 Bee allergy status ==

== ENCOUNTER → 2024-04-14 | Outpatient (CLI) | payer MEDICARE, OTHER ==
[~2024-04-14] MED LIST changes: +BRIN8DRO OU; +COLC0.6T47 PO; +EPIN0.3I11 INJ; +GABA-1171 PO; +METO1TAB7 PO; +MONT10TA97 PO; +VASC1CAP2 PO
== END ==
LOC: M PAIN 16:30
PROVIDERS: ATTEND Nurse Practitioner Family
DX: M79.18 Myalgia, other site (principal); N18.4 Chronic kidney disease, stage 4 (severe); I12.9 Hypertensive chronic kidney disease with stage 1 through stage 4 chronic kidney disease, or unspecified chronic kidney disease; E78.5 Hyperlipidemia, unspecified; N32.81 Overactive bladder; F32.A Depression, unspecified; G40.909 Epilepsy, unspecified, not intractable, without status epilepticus; Z87.891 Personal history of nicotine dependence; Z79.899 Other long term (current) drug therapy; Z88.1 Allergy status to other antibiotic agents; Z91.013 Allergy to seafood; Z91.030 Bee allergy status

== ENCOUNTER → 2024-05-02 | Outpatient (REF) | payer MEDICARE, OTHER ==
[~2024-05-02] MED LIST changes: -BRIN8DRO OU; -COLC0.6T47 PO; -EPIN0.3I11 INJ; -GABA-1171 PO; -METO1TAB7 PO; -MONT10TA97 PO; -VASC1CAP2 PO
== END ==
LOC: M LAB REF 16:10
PROVIDERS: ATTEND Physician Assistant
DX: L03.115 Cellulitis of right lower limb (principal)

== ENCOUNTER 2024-05-11 16:55 | Emergency (ER) | payer MEDICARE, OTHER ==
[~2024-05-11] VITALS: Ht 172.7 cm; Wt 50.4 kg
[2024-05-11 16:56] VITALS: BP 188/78; TEMP 98.2; O2SAT 100
[2024-05-11 22:27] LABS: BASO % 0.1 % (0.0-1.0); EOS % 0.1 % (0.0-3.0); HEMATOCRIT 41.3 % (36.0-47.0); HEMOGLOBIN 14.1 g/dl (12.0-15.5); LYMPH # 3.6 10^3/uL (1.5-5.0); LYMPH % 34.7 % (24.0-44.0); MEAN CORPUSCULAR HEMOGLOBIN 31.4 pg (27.0-33.0); MEAN CORPUSCULAR HGB CONC 34.1 g/dl (32.0-36.5); MONO # 0.9 10^3/uL (0.0-0.8); MONO % 8.1 % (2.0-8.0); NEUTROPHILS % 56.6 % (36.0-66.0); RED BLOOD COUNT 4.49 10^6/uL (4.00-5.40); WHITE BLOOD COUNT 10.5 10^3/uL (4.0-10.0)
[2024-05-11 22:46] LABS: PLATELET COUNT, AUTOMATED 94 10^3/uL (150-450)
[2024-05-11 22:58] LABS: CALCIUM LEVEL 9.6 MG/DL (8.3-10.6); CREATININE FOR GFR 3.28 MG/DL (0.55-1.30); GLOMERULAR FILTRATION RATE 14.8 (>39); MAGNESIUM LEVEL 1.4 MG/DL (1.8-2.4); POTASSIUM SERUM 4.3 MMOL/L (3.5-5.1)
== END 2024-05-11 22:36 | disposition left against medical advice (07) ==
LOC: M ED 16:55
DX: N17.9 Acute kidney failure, unspecified (principal); N18.9 Chronic kidney disease, unspecified; I10 Essential (primary) hypertension; F41.9 Anxiety disorder, unspecified; M48.061 Spinal stenosis, lumbar region without neurogenic claudication; F03.90 Unspecified dementia, unspecified severity, without behavioral disturbance, psychotic disturbance, mood disturbance, and anxiety; Z88.1 Allergy status to other antibiotic agents; Z91.030 Bee allergy status; Z91.048 Other nonmedicinal substance allergy status; Z79.899 Other long term (current) drug therapy; Z79.52 Long term (current) use of systemic steroids; Z53.9 Procedure and treatment not carried out, unspecified reason

== ENCOUNTER 2024-05-15 14:51 | Inpatient (IN) | payer MEDICARE, MEDICAID ==
[~2024-05-15] VITALS: Ht 170.2 cm; Wt 60.2 kg
[~2024-05-15 14:51] MED LIST changes: +GABA-1172 PO; -GABA-282 PO
[2024-05-15] MEDS: LIDOCAINE 2% 5ML JELLY UROJET TOP ONE (15:20)
[2024-05-15] MEDS ORDERED: NS 500 ML IV ONE (15:20)
[2024-05-15 15:52] LABS: BASO % 0.1 % (0.0-1.0); HEMATOCRIT 38.8 % (36.0-47.0); HEMOGLOBIN 13.3 g/dl (12.0-15.5); LYMPH # 2.9 10^3/uL (1.5-5.0); LYMPH % 26.9 % (24.0-44.0); MEAN CORPUSCULAR HEMOGLOBIN 31.7 pg (27.0-33.0); MEAN CORPUSCULAR HGB CONC 34.3 g/dl (32.0-36.5); MEAN CORPUSCULAR VOLUME 92.4 fl (80.0-96.0); MONO # 1.3 10^3/uL (0.0-0.8); MONO % 12.1 % (2.0-8.0); NEUTROPHILS # 6.5 10^3/uL (1.5-8.5); WHITE BLOOD COUNT 10.8 10^3/uL (4.0-10.0)
[2024-05-15 16:14] LABS: ETHYL ALCOHOL (ETHANOL) < 0.003 % (0.000-0.010)
[2024-05-15 16:17] LABS: SALICYLATE LEVEL < 3.0 MG/DL (<30)
[2024-05-15 16:22] LABS: ALKALINE PHOSPHATASE 79 U/L (46-116); ALT/SGPT < 9 U/L (7.0-40); AST/SGOT 28 U/L (<34); BILIRUBIN,DIRECT 0.3 MG/DL (<0.4); BILIRUBIN,TOTAL 0.4 MG/DL (0.3-1.2); BLOOD UREA NITROGEN 98 MG/DL (9-23); CALCIUM LEVEL 5.2 MG/DL (8.3-10.6); CARBON DIOXIDE LEVEL 12 MMOL/L (20-31); CHLORIDE LEVEL 123 MMOL/L (98-107); CK-MB VALUE MASS < 1.0 NG/ML (<3.6); CPK CREATINE PHOSPHOKINASE 62 U/L (34-145); CREATININE FOR GFR 3.95 MG/DL (0.55-1.30); GLUCOSE, FASTING 61 MG/DL (74-106); MB/CK RELATIVE INDEX 1.61 (< OR =4); SODIUM LEVEL 148 MMOL/L (136-145); THYROID STIMULATING HORMONE 1.698 uIU/ML (0.55-4.78); TOTAL PROTEIN 4.3 G/DL (5.7-8.2)
[2024-05-15 16:23] LABS: PLATELET COUNT, AUTOMATED 62 10^3/uL (150-450)
[2024-05-15] MEDS: NS 1,000 ML IV ONE (16:29)
[2024-05-15] MEDS: DEXTROSE 50% 50ML SYRINGE IV STA (16:55)
[2024-05-15 17:01] LABS: MAGNESIUM LEVEL 1.1 MG/DL (1.8-2.4)
[2024-05-15] MEDS: KCL 10MEQ/100ML SWI (KRUN) 10 MEQ in IV 1 EA IV ONE (17:46)
[2024-05-15] MEDS: MAG SULF 1GM/100ML (MAG RUN) 1 GM in IV 1 EA IV ONE (18:07)
[2024-05-15 18:30] LABS: CK-MB VALUE MASS 1.4 NG/ML (<3.6); MB/CK RELATIVE INDEX 1.12 (< OR =4)
[2024-05-15] MEDS ORDERED: GABA-1171 PO (19:16)
[2024-05-15] MEDS ORDERED: MONT10TA97 PO (19:16)
[2024-05-15] MEDS ORDERED: EPIN0.3I11 INJ (19:16)
[2024-05-15] MEDS ORDERED: METO1TAB7 PO (19:16)
[2024-05-15] MEDS ORDERED: VASC1CAP2 PO (19:16)
[2024-05-15] MEDS ORDERED: COLC0.6T47 PO (19:16)
[2024-05-15] MEDS ORDERED: BRIN8DRO OU (19:16)
[2024-05-15] MEDS ORDERED: HOME MED LIST COMPLETE! XX SCH (19:20)
[2024-05-15 20:49] LABS: ABG BASE EXCESS -12.8 (-2.0-2.0); ABG HCO3 12.5 MMOL/L (22.0-26.0); ABG O2 SATURATION 98.4 % (95.0-99.0); ABG PARTIAL PRESSURE CO2 27.7 mmHg (35.0-45.0); ABG PARTIAL PRESSURE O2 130.1 mmHg (75.0-100.0); ABG STANDARD HCO3 14.5 MMOL/L. (22.0-26.0); ABG TOTAL CO2 13.4 MMOL/L (23.0-31.0); ABG pH (ARTERIAL) 7.274 UNITS (7.350-7.450)
[2024-05-15 21:26] LABS: CALCIUM LEVEL 9.4 MG/DL (8.3-10.6); CREATININE FOR GFR 5.66 MG/DL (0.55-1.30); GLOMERULAR FILTRATION RATE 7.9 (>39); MAGNESIUM LEVEL 2.3 MG/DL (1.8-2.4); POTASSIUM SERUM 4.4 MMOL/L (3.5-5.1)
[2024-05-15 22:00] VITALS: BP 174/87; TEMP 97.2; O2SAT 99
[2024-05-15] MEDS: THIAMINE INJection 500 MG in NS 100 ML IV SCH (23:22)
[2024-05-15] MEDS: SODIUM BICARBONATE 100 MEQ in D5W 1,000 ML IV SCH (23:23)
[2024-05-16] MEDS: UNRESOLVED CLARIFICATION ENTRY XX SCH (00:01)
[2024-05-16 00:28] LABS: PROCALCITONIN 0.38 ng/ml
[2024-05-16] MEDS: PIPERACILLIN/TAZOBACTAM SOD 4.5 GM in D5W MINI-BAG PLUS 50 ML IV ONE (01:04)
[2024-05-16 04:00] VITALS: BP 172/77; TEMP 96.7; O2SAT 100
[2024-05-16 05:39] LABS: VENOUS BASE EXCESS -9.3 (-2.0-2.0); VENOUS HCO3 15.9 MMOL/L (23.0-27.0); VENOUS O2 SATURATION 98.8 % (60.0-80.0); VENOUS PARTIAL PRESSURE CO2 32.3 mmHg (38.0-50.0); VENOUS PARTIAL PRESSURE O2 189.9 mmHg (30.0-50.0); VENOUS PH 7.309 UNITS (7.330-7.430); VENOUS STANDARD HCO3 17.1 MMOL/L; VENOUS TOTAL CO2 16.9 MMOL/L (24.0-28.0)
[2024-05-16 05:44] LABS: BASO % 0.1 % (0.0-1.0); HEMATOCRIT 33.1 % (36.0-47.0); LYMPH # 1.3 10^3/uL (1.5-5.0); LYMPH % 18.8 % (24.0-44.0); MEAN CORPUSCULAR HEMOGLOBIN 31.4 pg (27.0-33.0); MEAN CORPUSCULAR HGB CONC 34.1 g/dl (32.0-36.5); MEAN CORPUSCULAR VOLUME 91.9 fl (80.0-96.0); MONO # 0.8 10^3/uL (0.0-0.8); NEUTROPHILS # 4.9 10^3/uL (1.5-8.5); NEUTROPHILS % 69.4 % (36.0-66.0); WHITE BLOOD COUNT 7.1 10^3/uL (4.0-10.0)
[2024-05-16 05:45] LABS: HEMOGLOBIN 11.3 g/dl (12.0-15.5); PLATELET COUNT, AUTOMATED 55 10^3/uL (150-450)
[2024-05-16 06:02] LABS: INR 1.38; PARTIAL THROMBOPLASTIN TIME 31.9 SECONDS (24.8-34.2); PROTHROMBIN TIME 16.6 SECONDS (12.5-14.5)
[2024-05-16] MEDS: HEPARIN SOD (PORCINE) 5000UNITS/ML 1ML VIAL/SYRINGE SC SCH (06:23)
[2024-05-16 06:29] LABS: ALBUMIN 2.6 G/DL (3.2-5.2); BILIRUBIN,TOTAL 0.8 MG/DL (0.3-1.2); CALCIUM LEVEL 8.9 MG/DL (8.3-10.6); CREATININE FOR GFR 5.26 MG/DL (0.55-1.30); GLOMERULAR FILTRATION RATE 8.6 (>39); POTASSIUM SERUM 3.9 MMOL/L (3.5-5.1); TOTAL PROTEIN 6.1 G/DL (5.7-8.2)
[2024-05-16 07:45] VITALS: BP 175/80; TEMP 96.8; O2SAT 100
[2024-05-16] MEDS ORDERED: SODIUM CHLORIDE 0.9% 1000ML IV PRN (09:40)
[2024-05-16] MEDS ORDERED: HEPARIN 1,000UNITS/ML 10ML VIAL (FOR RADIOLOGY & DIALYSIS ONLY) IV PRN (09:40)
[2024-05-16] MEDS ORDERED: LIDOCAINE 1% SDV 5ML VIAL SC PRN (09:40)
[2024-05-16 10:35] LABS: ANTI-STREPTOLYSIN O QUANT < 25.0 IU/ML (<195); COMPLEMENT C3 66.9 MG/DL (90.0-170.0)
[2024-05-16 10:38] LABS: HEPATITIS B SURFACE ANTIBODY NEGATIVE (POSITIVE)
[2024-05-16 10:49] LABS: HEPATITIS B SURFACE ANTIGEN NEGATIVE (NEGATIVE)
[2024-05-16 11:09] LABS: HEPATITIS B CORE ANTIBODY IGM NEGATIVE (NEGATIVE); HEPATITIS C VIRUS ABY INDEX 0.04 INDEX (<0.8)
[2024-05-16] MEDS: PIPERACILLIN/TAZOBACTAM SOD 4.5 GM in D5W MINI-BAG PLUS 50 ML IV SCH (11:19)
[2024-05-16 11:27] VITALS: BP 177/84; TEMP 96.9; O2SAT 96
[2024-05-16] MEDS: hydrALAZINE 20MG/ML 1ML VIAL IV PRN (11:30)
[2024-05-16 12:30] VITALS: BP 121/53
[2024-05-16] MEDS: HEPARIN 1,000UNITS/ML 10ML VIAL (FOR RADIOLOGY & DIALYSIS ONLY) XX SCH (14:30)
[2024-05-16 16:36] VITALS: BP 121/55; O2SAT 98
[2024-05-16 19:40] LABS: HEMATOCRIT 26.1 % (36.0-47.0); HEMOGLOBIN 9.5 g/dl (12.0-15.5); MEAN CORPUSCULAR HEMOGLOBIN 31.3 pg (27.0-33.0); MEAN CORPUSCULAR HGB CONC 36.4 g/dl (32.0-36.5); MEAN CORPUSCULAR VOLUME 85.9 fl (80.0-96.0); RED BLOOD COUNT 3.04 10^6/uL (4.00-5.40)
[2024-05-16 19:47] LABS: PLATELET COUNT, AUTOMATED 48 10^3/uL (150-450)
[2024-05-16 19:52] VITALS: BP 125/72; TEMP 96.9; O2SAT 98
[2024-05-16 20:08] LABS: CALCIUM LEVEL 7.7 MG/DL (8.3-10.6); CREATININE FOR GFR 3.05 MG/DL (0.55-1.30); GLOMERULAR FILTRATION RATE 16.1 (>39); POTASSIUM SERUM 3.2 MMOL/L (3.5-5.1)
[2024-05-16] MEDS: PANTOPRAZOLE 40MG VIAL IV SCH (22:28)
[2024-05-17] VITALS (8 sets, daily range): BP systolic 129–155; BP diastolic 67–96; TEMP 97.5–99.6; O2SAT 96–99
[2024-05-17 07:03] LABS: HEMATOCRIT 25.5 % (36.0-47.0); HEMOGLOBIN 9.4 g/dl (12.0-15.5); MEAN CORPUSCULAR HEMOGLOBIN 31.9 pg (27.0-33.0); MEAN CORPUSCULAR VOLUME 86.4 fl (80.0-96.0); RED BLOOD COUNT 2.95 10^6/uL (4.00-5.40); WHITE BLOOD COUNT 7.3 10^3/uL (4.0-10.0)
[2024-05-17 07:14] LABS: MEAN CORPUSCULAR HGB CONC 36.9 g/dl (32.0-36.5); PLATELET COUNT, AUTOMATED 46 10^3/uL (150-450)
[2024-05-17 07:59] LABS: CALCIUM LEVEL 7.3 MG/DL (8.3-10.6); CREATININE FOR GFR 3.16 MG/DL (0.55-1.30); GLOMERULAR FILTRATION RATE 15.5 (>39); POTASSIUM SERUM 3.1 MMOL/L (3.5-5.1)
[2024-05-17] MEDS ORDERED: POTASSIUM CHLORIDE 10MEQ SR TABLET PO ONE (08:35)
[2024-05-17 08:51] LABS: MAGNESIUM LEVEL 1.5 MG/DL (1.8-2.4)
[2024-05-17 09:08] LABS: HEPATITIS B CORE ANTIBODY IGG NON-REACTIVE (NON-REACTIVE)
[2024-05-17] MEDS: POTASSIUM CHLORIDE 10% LIQ 20MEQ/15ML UDC PO ONE ×2 (10:13→17:43)
[2024-05-17] MEDS: MAG SULF 1GM/100ML (MAG RUN) 1 GM in IV 1 EA IV SCH (11:20)
[2024-05-17] MEDS: KCL 20MEQ in NS 1000ML 1,000 ML IV SCH (13:48)
[2024-05-17] MEDS: FIDAXOMICIN 200 MG TAB (DIFICID) PO SCH (15:56)
[2024-05-17 16:39] LABS: ALBUMIN 2.2 G/DL (3.2-5.2); CALCIUM LEVEL 7.8 MG/DL (8.3-10.6); CREATININE FOR GFR 3.03 MG/DL (0.55-1.30); GLOMERULAR FILTRATION RATE 16.2 (>39); PHOSPHORUS LEVEL 2.6 MG/DL (2.4-5.1); POTASSIUM SERUM 3.2 MMOL/L (3.5-5.1)
[2024-05-17] MEDS: KCL 10MEQ/100ML SWI (KRUN) 10 MEQ in IV 1 EA IV SCH (17:44)
[2024-05-18] VITALS (7 sets, daily range): BP systolic 133–220; BP diastolic 80–100; TEMP 97.7–98.9; O2SAT 96–98
[2024-05-18 06:48] LABS: HEMATOCRIT 28.9 % (36.0-47.0); HEMOGLOBIN 10.3 g/dl (12.0-15.5); MEAN CORPUSCULAR HEMOGLOBIN 31.5 pg (27.0-33.0); MEAN CORPUSCULAR HGB CONC 35.6 g/dl (32.0-36.5); MEAN CORPUSCULAR VOLUME 88.4 fl (80.0-96.0); RED BLOOD COUNT 3.27 10^6/uL (4.00-5.40)
[2024-05-18 06:59] LABS: PLATELET COUNT, AUTOMATED 49 10^3/uL (150-450)
[2024-05-18 07:14] LABS: CALCIUM LEVEL 8.5 MG/DL (8.3-10.6); CREATININE FOR GFR 3.06 MG/DL (0.55-1.30); GLOMERULAR FILTRATION RATE 16.1 (>39)
[2024-05-18] MEDS: ACETAMINOPHEN TAB 650MG DOSE (2X325MG) PO PRN (17:18)
[2024-05-18] MEDS ORDERED: oxyCODONE 5MG TAB PO PRN (17:45)
[2024-05-18 18:55] LABS: CALCIUM LEVEL 8.3 MG/DL (8.3-10.6); CREATININE FOR GFR 3.05 MG/DL (0.55-1.30); GLOMERULAR FILTRATION RATE 16.1 (>39); POTASSIUM SERUM 4.1 MMOL/L (3.5-5.1)
[2024-05-19] VITALS (9 sets, daily range): BP systolic 140–192; BP diastolic 64–96; TEMP 96.7–98.2; O2SAT 89–100
[2024-05-19 08:28] LABS: HEMATOCRIT 28.7 % (36.0-47.0); HEMOGLOBIN 9.8 g/dl (12.0-15.5); MEAN CORPUSCULAR HEMOGLOBIN 31.3 pg (27.0-33.0); MEAN CORPUSCULAR HGB CONC 34.1 g/dl (32.0-36.5); MEAN CORPUSCULAR VOLUME 91.7 fl (80.0-96.0); PLATELET COUNT, AUTOMATED 74 10^3/uL (150-450); RED BLOOD COUNT 3.13 10^6/uL (4.00-5.40); WHITE BLOOD COUNT 11.9 10^3/uL (4.0-10.0)
[2024-05-19 09:02] LABS: CALCIUM LEVEL 8.2 MG/DL (8.3-10.6); CREATININE FOR GFR 3.14 MG/DL (0.55-1.30); GLOMERULAR FILTRATION RATE 15.6 (>39); POTASSIUM SERUM 4.3 MMOL/L (3.5-5.1)
[2024-05-19] MEDS ORDERED: HYDROMORPHONE HCL 0.5 MG/ 0.5 ML SYRINGE IV PRN ×2 (11:05)
[2024-05-19] MEDS: ACETAMINOPHEN *IV* 1,000 MG in IV 1 EA IV PRN (11:50)
[2024-05-19 23:58] LABS: COMPLEMENT TOTAL (CH50) 41 U/mL (31-60)
[2024-05-20 03:24] VITALS: BP 180/92; TEMP 97.4; O2SAT 100
[2024-05-20 04:30] VITALS: BP 155/70
[2024-05-20] MEDS ORDERED: HEPARIN 1,000UNITS/ML 10ML VIAL (FOR RADIOLOGY & DIALYSIS ONLY) IV PRN (05:55)
[2024-05-20] MEDS ORDERED: SODIUM CHLORIDE 0.9% 1000ML IV PRN (05:55)
[2024-05-20 06:16] LABS: HEMATOCRIT 28.5 % (36.0-47.0); HEMOGLOBIN 9.5 g/dl (12.0-15.5); MEAN CORPUSCULAR HEMOGLOBIN 31.6 pg (27.0-33.0); MEAN CORPUSCULAR HGB CONC 33.3 g/dl (32.0-36.5); MEAN CORPUSCULAR VOLUME 94.7 fl (80.0-96.0); RED BLOOD COUNT 3.01 10^6/uL (4.00-5.40); WHITE BLOOD COUNT 12.4 10^3/uL (4.0-10.0)
[2024-05-20 06:24] LABS: PLATELET COUNT, AUTOMATED 85 10^3/uL (150-450)
[2024-05-20 07:37] VITALS: BP 154/64; TEMP 97.6; O2SAT 99
[2024-05-20] MEDS: HEPARIN 1,000UNITS/ML 10ML VIAL (FOR RADIOLOGY & DIALYSIS ONLY) XX SCH (08:46)
[2024-05-20 14:30] LABS: ALBUMIN 1.9 G/DL (3.2-5.2); BLOOD UREA NITROGEN 12 MG/DL (9-23); CALCIUM LEVEL 8.7 MG/DL (8.3-10.6); CARBON DIOXIDE LEVEL 24 MMOL/L (20-31); CHLORIDE LEVEL 111 MMOL/L (98-107); CREATININE FOR GFR 1.51 MG/DL (0.55-1.30); GLOMERULAR FILTRATION RATE 36.3 (>39); GLUCOSE, FASTING 93 MG/DL (74-106); PHOSPHORUS LEVEL 1.8 MG/DL (2.4-5.1); POTASSIUM SERUM 3.8 MMOL/L (3.5-5.1); PROCALCITONIN 0.24 ng/ml; SODIUM LEVEL 141 MMOL/L (136-145)
[2024-05-20] MEDS: **hydrALAZINE HCL** 25 MG TAB PO SCH (15:36)
[2024-05-20 15:44] VITALS: BP 137/78; TEMP 98; O2SAT 96
[2024-05-20] MEDS: GASTROGRAFIN SOLUTION 30ML PO SCH (16:07)
[2024-05-20] MEDS ORDERED: ISOVUE-370 76% 100ML VIAL As Ordered ONE (16:26)
[2024-05-20 17:54] LABS: HIV 1&2 SCREEN NEGATIVE (NEGATIVE)
[2024-05-20 19:50] VITALS: BP 140/77; TEMP 98.8; O2SAT 96
[2024-05-21] VITALS (7 sets, daily range): BP systolic 123–190; BP diastolic 69–86; TEMP 97.1–98.9; O2SAT 97–98
[2024-05-21 07:02] LABS: BASO % 0.1 % (0.0-1.0); EOS # 0.1 10^3/uL (0.0-0.5); HEMATOCRIT 26.1 % (36.0-47.0); HEMOGLOBIN 9.1 g/dl (12.0-15.5); LYMPH # 2.7 10^3/uL (1.5-5.0); LYMPH % 22.1 % (24.0-44.0); MEAN CORPUSCULAR HEMOGLOBIN 31.6 pg (27.0-33.0); MEAN CORPUSCULAR HGB CONC 34.9 g/dl (32.0-36.5); MEAN CORPUSCULAR VOLUME 90.6 fl (80.0-96.0); MONO # 1.9 10^3/uL (0.0-0.8); MONO % 15.6 % (2.0-8.0); NEUTROPHILS # 7.5 10^3/uL (1.5-8.5); NEUTROPHILS % 60.3 % (36.0-66.0); PLATELET COUNT, AUTOMATED 142 10^3/uL (150-450); RED BLOOD COUNT 2.88 10^6/uL (4.00-5.40); WHITE BLOOD COUNT 12.4 10^3/uL (4.0-10.0)
[2024-05-21 07:31] LABS: CREATININE FOR GFR 2.18 MG/DL (0.55-1.30); GLOMERULAR FILTRATION RATE 23.7 (>39); MAGNESIUM LEVEL 1.5 MG/DL (1.8-2.4); POTASSIUM SERUM 4.1 MMOL/L (3.5-5.1)
[2024-05-21] MEDS: MAG SULF 1GM/100ML (MAG RUN) 1 GM in IV 1 EA IV SCH (11:12)
[2024-05-21] MEDS: **hydrALAZINE** 50 MG TAB PO SCH (12:00)
[2024-05-21] MEDS: ACETAMINOPHEN TAB 650MG DOSE (2X325MG) PO PRN (15:39)
[2024-05-21 17:41] LABS: APPEARANCE, URINE HAZY (CLEAR); BACTERIA, URINE AUTO NEGATIVE (NEGATIVE); BILIRUBIN, URINE AUTO NEGATIVE (NEGATIVE); BLOOD, URINE BLOOD 3+ (NEGATIVE); COLOR, URINE YELLOW (YELLOW); GLUCOSE, URINE (UA) AUTO NEGATIVE (NEGATIVE); KETONE, URINE AUTO NEGATIVE (NEGATIVE); LEUKOCYTE ESTERASE, URINE AUTO TRACE (NEGATIVE); NITRITE, URINE AUTO NEGATIVE (NEGATIVE); PROTEIN, URINE AUTO 1+ mg/dL (NEGATIVE); RBC, URINE AUTO 162 /HPF (0-3); SPECIFIC GRAVITY URINE AUTO 1.024 (1.002-1.035); SQUAMOUS EPITHELIAL CELL UR AU 0 /HPF (0-6); UROBILINOGEN, URINE AUTO 0.2 mg/dL (0.0-2.0); WBC, URINE AUTO 4 /HPF (0-3)
[2024-05-22] VITALS (10 sets, daily range): BP systolic 122–182; BP diastolic 68–90; TEMP 96.6–98.7; O2SAT 97–99
[2024-05-22 06:00] LABS: BASO % 0.1 % (0.0-1.0); EOS # 0.4 10^3/uL (0.0-0.5); EOS % 3.1 % (0.0-3.0); HEMATOCRIT 27.1 % (36.0-47.0); HEMOGLOBIN 9.2 g/dl (12.0-15.5); LYMPH # 3.1 10^3/uL (1.5-5.0); LYMPH % 23.2 % (24.0-44.0); MEAN CORPUSCULAR HGB CONC 33.9 g/dl (32.0-36.5); MEAN CORPUSCULAR VOLUME 91.2 fl (80.0-96.0); MONO # 1.5 10^3/uL (0.0-0.8); MONO % 11.6 % (2.0-8.0); NEUTROPHILS % 60.8 % (36.0-66.0); PLATELET COUNT, AUTOMATED 187 10^3/uL (150-450); RED BLOOD COUNT 2.97 10^6/uL (4.00-5.40); WHITE BLOOD COUNT 13.2 10^3/uL (4.0-10.0)
[2024-05-22 06:24] LABS: CALCIUM LEVEL 8.3 MG/DL (8.3-10.6); CREATININE FOR GFR 2.46 MG/DL (0.55-1.30); GLOMERULAR FILTRATION RATE 20.6 (>39); MAGNESIUM LEVEL 2.1 MG/DL (1.8-2.4); POTASSIUM SERUM 4.1 MMOL/L (3.5-5.1)
[2024-05-22] MEDS: METOPROLOL 5 MG/5 ML VIAL IV PRN (08:55)
[2024-05-22] MEDS ORDERED: SODIUM CHLORIDE 0.9% 1000ML IV PRN (09:35)
[2024-05-22] MEDS ORDERED: HEPARIN 1,000UNITS/ML 10ML VIAL (FOR RADIOLOGY & DIALYSIS ONLY) IV PRN (09:35)
[2024-05-22] MEDS ORDERED: HEPARIN 1,000UNITS/ML 10ML VIAL (FOR RADIOLOGY & DIALYSIS ONLY) XX SCH (09:35)
[2024-05-22] MEDS: METOPROLOL SUCC *XL* 25MG TAB (TopROL *XL*) PO SCH (11:31)
[2024-05-22] MEDS: METOPROLOL SUCC *XL* 25MG TAB (TopROL *XL*) PO ONE (16:59)
[2024-05-22] MEDS: APIXABAN 5 MG TAB (ELIQUIS) PO SCH (21:47)
[2024-05-22] MEDS: METOPROLOL SUCC (TopROL XL) 50MG **XL** TAB PO SCH (21:48)
[2024-05-23] VITALS (8 sets, daily range): BP systolic 127–188; BP diastolic 63–86; TEMP 97.1–98.5; O2SAT 96–99
[2024-05-23 05:57] LABS: BASO % 0.1 % (0.0-1.0); EOS # 0.3 10^3/uL (0.0-0.5); HEMATOCRIT 24.2 % (36.0-47.0); HEMOGLOBIN 8.2 g/dl (12.0-15.5); LYMPH # 2.8 10^3/uL (1.5-5.0); LYMPH % 24.2 % (24.0-44.0); MEAN CORPUSCULAR HEMOGLOBIN 31.9 pg (27.0-33.0); MEAN CORPUSCULAR HGB CONC 33.9 g/dl (32.0-36.5); MEAN CORPUSCULAR VOLUME 94.2 fl (80.0-96.0); MONO # 1.1 10^3/uL (0.0-0.8); MONO % 9.6 % (2.0-8.0); NEUTROPHILS # 7.1 10^3/uL (1.5-8.5); PLATELET COUNT, AUTOMATED 204 10^3/uL (150-450); RED BLOOD COUNT 2.57 10^6/uL (4.00-5.40); WHITE BLOOD COUNT 11.4 10^3/uL (4.0-10.0)
[2024-05-23] MEDS ORDERED: SODIUM CHLORIDE 0.9% 1000ML IV PRN (06:00)
[2024-05-23] MEDS ORDERED: HEPARIN 1,000UNITS/ML 10ML VIAL (FOR RADIOLOGY & DIALYSIS ONLY) IV PRN (06:00)
[2024-05-23 06:18] LABS: CALCIUM LEVEL 8.4 MG/DL (8.3-10.6); CREATININE FOR GFR 2.44 MG/DL (0.55-1.30); GLOMERULAR FILTRATION RATE 20.8 (>39); POTASSIUM SERUM 4.2 MMOL/L (3.5-5.1)
[2024-05-23] MEDS: HEPARIN 1,000UNITS/ML 10ML VIAL (FOR RADIOLOGY & DIALYSIS ONLY) XX SCH (11:47)
[2024-05-23] MEDS: THIAMINE 100 MG TAB PO SCH (13:20)
[2024-05-23] MEDS ORDERED: METOCLOPRAMIDE 5 MG TAB PO PRN (18:45)
[2024-05-24] VITALS (7 sets, daily range): BP systolic 150–172; BP diastolic 71–80; TEMP 97–99.2; O2SAT 96–99
[2024-05-24 05:48] LABS: HEMATOCRIT 24.4 % (36.0-47.0); HEMOGLOBIN 8.2 g/dl (12.0-15.5); MEAN CORPUSCULAR HEMOGLOBIN 31.2 pg (27.0-33.0); MEAN CORPUSCULAR HGB CONC 33.6 g/dl (32.0-36.5); MEAN CORPUSCULAR VOLUME 92.8 fl (80.0-96.0); PLATELET COUNT, AUTOMATED 256 10^3/uL (150-450); RED BLOOD COUNT 2.63 10^6/uL (4.00-5.40); WHITE BLOOD COUNT 10.9 10^3/uL (4.0-10.0)
[2024-05-24 06:21] LABS: CREATININE FOR GFR 1.83 MG/DL (0.55-1.30); GLOMERULAR FILTRATION RATE 29.1 (>39); POTASSIUM SERUM 4.1 MMOL/L (3.5-5.1)
[2024-05-24 14:14] LABS: BASO % 0.2 % (0.0-1.0); EOS # 0.2 10^3/uL (0.0-0.5); EOS % 1.7 % (0.0-3.0); HEMATOCRIT 27.2 % (36.0-47.0); HEMOGLOBIN 9.1 g/dl (12.0-15.5); LYMPH # 3.5 10^3/uL (1.5-5.0); LYMPH % 25.5 % (24.0-44.0); MEAN CORPUSCULAR HEMOGLOBIN 31.6 pg (27.0-33.0); MEAN CORPUSCULAR HGB CONC 33.5 g/dl (32.0-36.5); MEAN CORPUSCULAR VOLUME 94.4 fl (80.0-96.0); MONO % 7.3 % (2.0-8.0); NEUTROPHILS # 8.8 10^3/uL (1.5-8.5); NEUTROPHILS % 64.6 % (36.0-66.0); PLATELET COUNT, AUTOMATED 313 10^3/uL (150-450); RED BLOOD COUNT 2.88 10^6/uL (4.00-5.40); WHITE BLOOD COUNT 13.6 10^3/uL (4.0-10.0)
[2024-05-24 14:39] LABS: CALCIUM LEVEL 8.1 MG/DL (8.3-10.6); CREATININE FOR GFR 1.88 MG/DL (0.55-1.30); GLOMERULAR FILTRATION RATE 28.2 (>39); POTASSIUM SERUM 3.8 MMOL/L (3.5-5.1)
[2024-05-24] MEDS: METOPROLOL SUCC *XL* 25MG TAB (TopROL *XL*) PO SCH (20:26)
[2024-05-25 04:35] VITALS: BP 170/77; TEMP 97.6; O2SAT 96
[2024-05-25 08:15] VITALS: BP 165/75; O2SAT 98
[2024-05-25 09:38] VITALS: TEMP 97.8
[2024-05-25] MEDS: amLODIPine 5 MG TAB PO SCH (10:49)
[2024-05-25] MEDS: amLODIPine 5 MG TAB PO ONE (11:04)
[2024-05-25 12:33] VITALS: BP 165/79; O2SAT 97
[2024-05-25 16:05] VITALS: BP 157/73; TEMP 97.5; O2SAT 97
[2024-05-25 19:48] VITALS: BP 155/69; TEMP 97.6; O2SAT 98
[2024-05-26 00:19] VITALS: BP 166/79; TEMP 98.3; O2SAT 97
[2024-05-26 03:50] VITALS: BP 163/79; TEMP 98; O2SAT 97
[2024-05-26 05:46] LABS: BASO % 0.2 % (0.0-1.0); EOS # 0.2 10^3/uL (0.0-0.5); EOS % 2.3 % (0.0-3.0); HEMATOCRIT 24.2 % (36.0-47.0); HEMOGLOBIN 7.9 g/dl (12.0-15.5); LYMPH # 2.7 10^3/uL (1.5-5.0); LYMPH % 26.3 % (24.0-44.0); MEAN CORPUSCULAR HEMOGLOBIN 30.6 pg (27.0-33.0); MEAN CORPUSCULAR HGB CONC 32.6 g/dl (32.0-36.5); MEAN CORPUSCULAR VOLUME 93.8 fl (80.0-96.0); MONO # 0.5 10^3/uL (0.0-0.8); MONO % 5.3 % (2.0-8.0); NEUTROPHILS # 6.7 10^3/uL (1.5-8.5); NEUTROPHILS % 65.3 % (36.0-66.0); PLATELET COUNT, AUTOMATED 317 10^3/uL (150-450); RED BLOOD COUNT 2.58 10^6/uL (4.00-5.40); WHITE BLOOD COUNT 10.3 10^3/uL (4.0-10.0)
[2024-05-26 06:23] LABS: ALBUMIN 1.4 G/DL (3.2-5.2); CALCIUM LEVEL 7.6 MG/DL (8.3-10.6); CREATININE FOR GFR 1.98 MG/DL (0.55-1.30); GLOMERULAR FILTRATION RATE 26.5 (>39); MAGNESIUM LEVEL 1.5 MG/DL (1.8-2.4); PHOSPHORUS LEVEL 3.2 MG/DL (2.4-5.1); POTASSIUM SERUM 4.2 MMOL/L (3.5-5.1)
[2024-05-26 07:52] VITALS: BP 172/88; TEMP 98.3; O2SAT 98
[2024-05-26] MEDS ORDERED: SODIUM BICARBONATE 325 MG TAB PO SCH (09:00)
[2024-05-26] MEDS: ISOSORBIDE MON. (IMDUR) 30MG XR TAB PO SCH (09:12)
[2024-05-26] MEDS: MAG SULF 1GM/100ML (MAG RUN) 1 GM in IV 1 EA IV SCH (09:14)
[2024-05-26] MEDS: SODIUM BICARBONATE 325 MG TAB PO SCH (09:14)
[2024-05-26 12:09] VITALS: BP 164/79; O2SAT 96
[2024-05-26 15:30] LABS: PERCENT SATURATION 13.5 % (13.2-45.0)
[2024-05-26 18:00] VITALS: BP 164/90; TEMP 98.2; O2SAT 97
[2024-05-26 20:00] VITALS: BP 168/80; TEMP 98.2; O2SAT 97
[2024-05-27] VITALS (7 sets, daily range): BP systolic 135–161; BP diastolic 73–89; TEMP 97.7–99; O2SAT 97–99
[2024-05-27 06:35] LABS: ALBUMIN 1.5 G/DL (3.2-5.2); CALCIUM LEVEL 8.3 MG/DL (8.3-10.6); CREATININE FOR GFR 1.91 MG/DL (0.55-1.30); GLOMERULAR FILTRATION RATE 27.7 (>39); PERCENT SATURATION 13.3 % (13.2-45.0); PHOSPHORUS LEVEL 3.7 MG/DL (2.4-5.1)
[2024-05-27 06:37] LABS: FERRITIN 132.4 NG/ML (7.3-270.7)
[2024-05-28] VITALS: BP 155/84; TEMP 98.2; O2SAT 96
[2024-05-28 03:55] VITALS: BP 155/85; TEMP 98.4; O2SAT 96
[2024-05-28 08:00] VITALS: BP 158/87; TEMP 98.1; O2SAT 97
[2024-05-28 09:29] LABS: HEMATOCRIT 25.4 % (36.0-47.0); HEMOGLOBIN 8.5 g/dl (12.0-15.5); MEAN CORPUSCULAR HEMOGLOBIN 31.6 pg (27.0-33.0); MEAN CORPUSCULAR HGB CONC 33.5 g/dl (32.0-36.5); MEAN CORPUSCULAR VOLUME 94.4 fl (80.0-96.0); PLATELET COUNT, AUTOMATED 425 10^3/uL (150-450); RED BLOOD COUNT 2.69 10^6/uL (4.00-5.40); WHITE BLOOD COUNT 10.3 10^3/uL (4.0-10.0)
[2024-05-28 10:04] LABS: CALCIUM LEVEL 8.1 MG/DL (8.3-10.6); CREATININE FOR GFR 1.74 MG/DL (0.55-1.30); GLOMERULAR FILTRATION RATE 30.8 (>39); POTASSIUM SERUM 3.7 MMOL/L (3.5-5.1)
[2024-05-28 12:00] VITALS: BP 146/72; TEMP 97.9; O2SAT 97
[2024-05-28 19:50] VITALS: BP 151/76; TEMP 98.1; O2SAT 98
[2024-05-29] VITALS (9 sets, daily range): BP systolic 123–157; BP diastolic 69–92; TEMP 97.7–98.2; O2SAT 96–98
[2024-05-29 05:53] LABS: HEMOGLOBIN 7.9 g/dl (12.0-15.5); MEAN CORPUSCULAR HEMOGLOBIN 30.9 pg (27.0-33.0); MEAN CORPUSCULAR HGB CONC 32.9 g/dl (32.0-36.5); MEAN CORPUSCULAR VOLUME 93.8 fl (80.0-96.0); PLATELET COUNT, AUTOMATED 418 10^3/uL (150-450); RED BLOOD COUNT 2.56 10^6/uL (4.00-5.40); WHITE BLOOD COUNT 8.8 10^3/uL (4.0-10.0)
[2024-05-29 06:21] LABS: CALCIUM LEVEL 8.5 MG/DL (8.3-10.6); CREATININE FOR GFR 1.72 MG/DL (0.55-1.30); GLOMERULAR FILTRATION RATE 31.2 (>39); POTASSIUM SERUM 3.9 MMOL/L (3.5-5.1)
[2024-05-29] MEDS ORDERED: PILL CUTTER 1 EACH XX PRN (12:05)
[2024-05-29 12:11] LABS: URIC ACID 5.8 MG/DL (3.1-7.8)
[2024-05-29] MEDS: predniSONE 20 MG TAB PO SCH (13:32)
[2024-05-29] MEDS: COLCHICINE 0.6 MG TABLET PO ONE (13:33)
[2024-05-29] MEDS: LIDOCAINE 5% (LIDODERM) PATCH TD ONE (23:17)
[2024-05-30 00:14] LABS: CK-MB VALUE MASS < 1.0 NG/ML (<3.6)
[2024-05-30 00:17] LABS: CPK CREATINE PHOSPHOKINASE 33 U/L (34-145); MB/CK RELATIVE INDEX 3.03 (< OR =4)
[2024-05-30 04:00] VITALS: BP 125/71; TEMP 97.5; O2SAT 98
[2024-05-30 06:28] LABS: MEAN CORPUSCULAR HEMOGLOBIN 31.3 pg (27.0-33.0); MEAN CORPUSCULAR HGB CONC 33.3 g/dl (32.0-36.5); MEAN CORPUSCULAR VOLUME 93.8 fl (80.0-96.0); PLATELET COUNT, AUTOMATED 449 10^3/uL (150-450); RED BLOOD COUNT 2.56 10^6/uL (4.00-5.40); WHITE BLOOD COUNT 7.5 10^3/uL (4.0-10.0)
[2024-05-30 06:49] LABS: CALCIUM LEVEL 8.3 MG/DL (8.3-10.6); CREATININE FOR GFR 1.67 MG/DL (0.55-1.30); GLOMERULAR FILTRATION RATE 32.3 (>39); POTASSIUM SERUM 4.1 MMOL/L (3.5-5.1)
[2024-05-30 12:00] VITALS: BP 127/71; TEMP 97.9; O2SAT 97
[2024-05-30 19:56] VITALS: BP 125/65; TEMP 97.7; O2SAT 96
[2024-05-31 03:40] VITALS: BP 141/68; TEMP 98.2; O2SAT 97
[2024-05-31 06:08] VITALS: BP 165/75; TEMP 97.7; O2SAT 97
[2024-05-31 06:11] LABS: HEMATOCRIT 23.6 % (36.0-47.0); HEMOGLOBIN 7.7 g/dl (12.0-15.5); MEAN CORPUSCULAR HGB CONC 32.6 g/dl (32.0-36.5); MEAN CORPUSCULAR VOLUME 95.2 fl (80.0-96.0); PLATELET COUNT, AUTOMATED 470 10^3/uL (150-450); RED BLOOD COUNT 2.48 10^6/uL (4.00-5.40); WHITE BLOOD COUNT 9.8 10^3/uL (4.0-10.0)
[2024-05-31 06:41] LABS: CALCIUM LEVEL 8.1 MG/DL (8.3-10.6); CREATININE FOR GFR 1.76 MG/DL (0.55-1.30); GLOMERULAR FILTRATION RATE 30.4 (>39); POTASSIUM SERUM 3.5 MMOL/L (3.5-5.1)
[2024-05-31 20:03] VITALS: BP 137/73; TEMP 97.7; O2SAT 94
[2024-05-31] MEDS: PANTOPRAZOLE 40MG TAB (PROTONIX) PO SCH (20:20)
[2024-06-01 03:50] VITALS: BP 134/74; TEMP 97.9; O2SAT 94
[2024-06-01 06:40] LABS: MEAN CORPUSCULAR HEMOGLOBIN 30.5 pg (27.0-33.0); MEAN CORPUSCULAR HGB CONC 33.3 g/dl (32.0-36.5); MEAN CORPUSCULAR VOLUME 91.6 fl (80.0-96.0); PLATELET COUNT, AUTOMATED 544 10^3/uL (150-450); RED BLOOD COUNT 2.62 10^6/uL (4.00-5.40); WHITE BLOOD COUNT 9.6 10^3/uL (4.0-10.0)
[2024-06-01 07:11] LABS: CALCIUM LEVEL 8.6 MG/DL (8.3-10.6); CREATININE FOR GFR 1.57 MG/DL (0.55-1.30); GLOMERULAR FILTRATION RATE 34.7 (>39); POTASSIUM SERUM 3.5 MMOL/L (3.5-5.1)
[2024-06-01 11:56] VITALS: BP 137/74; TEMP 97.5; O2SAT 97
[2024-06-02 03:49] VITALS: BP 144/71; TEMP 97.9; O2SAT 97
[2024-06-02 05:59] LABS: HEMATOCRIT 23.8 % (36.0-47.0); HEMOGLOBIN 8.1 g/dl (12.0-15.5); MEAN CORPUSCULAR HEMOGLOBIN 31.2 pg (27.0-33.0); MEAN CORPUSCULAR VOLUME 91.5 fl (80.0-96.0); PLATELET COUNT, AUTOMATED 579 10^3/uL (150-450); WHITE BLOOD COUNT 10.4 10^3/uL (4.0-10.0)
[2024-06-02 06:16] LABS: CALCIUM LEVEL 8.4 MG/DL (8.3-10.6); CREATININE FOR GFR 1.48 MG/DL (0.55-1.30); GLOMERULAR FILTRATION RATE 37.1 (>39); POTASSIUM SERUM 3.8 MMOL/L (3.5-5.1)
[2024-06-02 16:00] VITALS: O2SAT 91
[2024-06-03 03:50] VITALS: BP 152/83; TEMP 98.1; O2SAT 98
[2024-06-03 06:04] LABS: HEMATOCRIT 23.7 % (36.0-47.0); HEMOGLOBIN 8.1 g/dl (12.0-15.5); MEAN CORPUSCULAR HEMOGLOBIN 31.3 pg (27.0-33.0); MEAN CORPUSCULAR HGB CONC 34.2 g/dl (32.0-36.5); MEAN CORPUSCULAR VOLUME 91.5 fl (80.0-96.0); PLATELET COUNT, AUTOMATED 570 10^3/uL (150-450); RED BLOOD COUNT 2.59 10^6/uL (4.00-5.40)
[2024-06-03 06:29] LABS: CALCIUM LEVEL 8.6 MG/DL (8.3-10.6); CREATININE FOR GFR 1.38 MG/DL (0.55-1.30); GLOMERULAR FILTRATION RATE 40.2 (>39); POTASSIUM SERUM 3.8 MMOL/L (3.5-5.1)
[2024-06-03 08:19] VITALS: BP 152/83
[2024-06-03] MEDS ORDERED: ISOSORBIDE MONONITRATE PO (08:52)
[2024-06-03] MEDS ORDERED: PANT40TA29 PO (08:52)
[2024-06-03] MEDS ORDERED: ELIQ5TAB PO (08:52)
[2024-06-03] MEDS ORDERED: AMLO1TAB25 PO (08:52)
[2024-06-03] MEDS ORDERED: FERR325T3 PO (08:52)
[2024-06-03] MEDS ORDERED: SODI650T PO (08:52)
[2024-06-03] MEDS ORDERED: METO1TAB32 PO (08:52)
[2024-06-03] MEDS ORDERED: THIA100TA PO (08:52)
[2024-06-03 12:00] VITALS: BP 130/81; TEMP 97; O2SAT 96
[2024-06-03] MEDS ORDERED: SODIUM BICARBONATE 325 MG TAB PO SCH (21:00)
== END 2024-06-03 12:16 | DRG 682 ==
LOC: EDBD 14:51 → M ED 14:51 → M ED INP 19:46 → M PCU 21:53 → M MSPAV 05-26 18:27
PROVIDERS: ADMIT Preventive Medicine Undersea and Hyperbaric Medicine; ATTEND Internal Medicine Nephrology
PROC: 02HV33Z Insertion of Infusion Device into Superior Vena Cava, Percutaneous Approach (ICD-10-PCS; principal; 2024-05-16)
PROC: 5A1D70Z Performance of Urinary Filtration, Intermittent, Less than 6 Hours Per Day (ICD-10-PCS; 2024-05-16)
DX: N17.9 Acute kidney failure, unspecified (principal); G93.41 Metabolic encephalopathy; G92.8 Other toxic encephalopathy; E87.0 Hyperosmolality and hypernatremia; E87.21 Acute metabolic acidosis; A04.72 Enterocolitis due to Clostridium difficile, not specified as recurrent; J90 Pleural effusion, not elsewhere classified; J98.11 Atelectasis; E78.5 Hyperlipidemia, unspecified; M19.90 Unspecified osteoarthritis, unspecified site; D69.6 Thrombocytopenia, unspecified; E87.6 Hypokalemia; G40.909 Epilepsy, unspecified, not intractable, without status epilepticus; E83.42 Hypomagnesemia; N18.4 Chronic kidney disease, stage 4 (severe); I12.9 Hypertensive chronic kidney disease with stage 1 through stage 4 chronic kidney disease, or unspecified chronic kidney disease; E86.0 Dehydration; I48.91 Unspecified atrial fibrillation; F03.90 Unspecified dementia, unspecified severity, without behavioral disturbance, psychotic disturbance, mood disturbance, and anxiety; D50.9 Iron deficiency anemia, unspecified; D63.8 Anemia in other chronic diseases classified elsewhere; M10.9 Gout, unspecified; Z88.8 Allergy status to other drugs, medicaments and biological substances; Z91.030 Bee allergy status; Z79.899 Other long term (current) drug therapy; Z91.013 Allergy to seafood; H40.9 Unspecified glaucoma; Z96.643 Presence of artificial hip joint, bilateral; Z98.41 Cataract extraction status, right eye; Z98.42 Cataract extraction status, left eye; Z87.891 Personal history of nicotine dependence; N04.A Nephrotic syndrome with C3 glomerulonephritis

== ENCOUNTER → 2025-03-02 | Outpatient (REF) | payer MEDICARE, MEDICAID ==
[~2025-03-02] MED LIST changes: +AMLO1TAB25 PO; -BRIM1OPD IO; -BRIM1OPD OU; +BRIM5DRO25 IO; +BRIM5DRO25 OU; +BRIN8DRO OU; +COLC0.6T53 PO; +DIVA-41 PO; -DIVA500T94 PO; +ELIQ5TAB PO; +EPIN0.3I11 INJ; +FERR325T3 PO; +GABA-1171 PO; +ISOSORBIDE MONONITRATE PO; +METO1TAB7 PO; +MONT10TA97 PO; -PRAV20TA2 PO; +PRAV20TA78 PO; +SODI650T PO; +THIA100TA PO; +VASC1CAP2 PO
[2025-03-02 10:47] LABS: PLATELET COUNT, AUTOMATED 151 10^3/uL (150-450)
[2025-03-02 11:20] LABS: CALCIUM LEVEL 9.5 MG/DL (8.3-10.6); CARBON DIOXIDE LEVEL 23.0 MMOL/L (20-31); CHLORIDE LEVEL 109.0 MMOL/L (98-107); CREATININE FOR GFR 1.62 MG/DL (0.55-1.30); GLOMERULAR FILTRATION RATE 34.0 (>39); POTASSIUM SERUM 4.2 MMOL/L (3.5-5.1); SODIUM LEVEL 143.0 MMOL/L (136-145)
[2025-03-02 11:23] LABS: VITAMIN B12 LEVEL 789.0 PG/ML (211-911)
== END ==
PROVIDERS: ATTEND Physician Assistant
DX: N18.9 Chronic kidney disease, unspecified (principal); Z79.899 Other long term (current) drug therapy

== ENCOUNTER → 2025-03-16 | Outpatient (REF) | payer MEDICARE, MEDICAID, OTHER ==
[~2025-03-16] MED LIST changes: +COLC0.6T47 PO; -COLC0.6T53 PO
[2025-03-16 18:34] LABS: IRON (FE) 192.0 UG/DL (50-170)
[2025-03-16 18:39] LABS: PLATELET COUNT, AUTOMATED 156 10^3/uL (150-450)
[2025-03-16 19:05] LABS: CALCIUM LEVEL 9.4 MG/DL (8.3-10.6); CARBON DIOXIDE LEVEL 23.0 MMOL/L (20-31); CHLORIDE LEVEL 104.0 MMOL/L (98-107); CREATININE FOR GFR 1.57 MG/DL (0.55-1.30); GLOMERULAR FILTRATION RATE 35.3 (>39); PERCENT SATURATION 48.5 % (13.2-45.0); POTASSIUM SERUM 5.2 MMOL/L (3.5-5.1); SODIUM LEVEL 142.0 MMOL/L (136-145)
== END ==
PROVIDERS: ATTEND Physician Assistant
DX: D64.9 Anemia, unspecified (principal)

== ENCOUNTER → 2025-03-24 | Outpatient (REF) | payer MEDICARE, MEDICAID ==
[2025-03-24 17:26] LABS: PLATELET COUNT, AUTOMATED 166 10^3/uL (150-450)
[2025-03-24 17:44] LABS: VALPROIC ACID (DEPAKOTE) 68.5 UG/ML (50.0-100.0)
[2025-03-24 17:46] LABS: CALCIUM LEVEL 9.4 MG/DL (8.3-10.6); CARBON DIOXIDE LEVEL 23.0 MMOL/L (20-31); CHLORIDE LEVEL 108.0 MMOL/L (98-107); CREATININE FOR GFR 2.06 MG/DL (0.55-1.30); GLOMERULAR FILTRATION RATE 25.5 (>39); POTASSIUM SERUM 4.2 MMOL/L (3.5-5.1); SODIUM LEVEL 144.0 MMOL/L (136-145)
== END ==
PROVIDERS: ATTEND Physician Assistant
DX: G40.909 Epilepsy, unspecified, not intractable, without status epilepticus (principal); Z79.899 Other long term (current) drug therapy

== ENCOUNTER → 2025-03-26 | Outpatient (REF) | payer MEDICARE, MEDICAID | PROVIDERS: ATTEND Physician Assistant | DX: N17.9 Acute kidney failure, unspecified (principal); Z53.8 Procedure and treatment not carried out for other reasons ==

== ENCOUNTER → 2025-03-27 | Outpatient (REF) | payer MEDICARE, MEDICAID ==
[2025-03-27 11:07] LABS: PLATELET COUNT, AUTOMATED 170 10^3/uL (150-450)
[2025-03-27 11:38] LABS: CALCIUM LEVEL 9.3 MG/DL (8.3-10.6); CARBON DIOXIDE LEVEL 23.0 MMOL/L (20-31); CHLORIDE LEVEL 109.0 MMOL/L (98-107); CREATININE FOR GFR 1.73 MG/DL (0.55-1.30); GLOMERULAR FILTRATION RATE 31.4 (>39); POTASSIUM SERUM 5.0 MMOL/L (3.5-5.1); SODIUM LEVEL 143.0 MMOL/L (136-145)
== END ==
PROVIDERS: ATTEND Physician Assistant
DX: N17.9 Acute kidney failure, unspecified (principal)

== ENCOUNTER → 2025-04-01 | Outpatient (REF) | payer MEDICARE, MEDICAID ==
[~2025-04-01] MED LIST changes: -COLC0.6T47 PO; +COLC0.6T53 PO
[2025-04-01 10:08] LABS: PLATELET COUNT, AUTOMATED 143 10^3/uL (150-450)
[2025-04-01 10:41] LABS: CALCIUM LEVEL 9.9 MG/DL (8.3-10.6); CARBON DIOXIDE LEVEL 25.0 MMOL/L (20-31); CHLORIDE LEVEL 108.0 MMOL/L (98-107); CREATININE FOR GFR 1.73 MG/DL (0.55-1.30); GLOMERULAR FILTRATION RATE 31.4 (>39); POTASSIUM SERUM 4.2 MMOL/L (3.5-5.1); SODIUM LEVEL 143.0 MMOL/L (136-145)
[2025-04-01 10:43] LABS: VITAMIN B12 LEVEL 643.0 PG/ML (211-911)
== END ==
PROVIDERS: ATTEND Internal Medicine
DX: N18.9 Chronic kidney disease, unspecified (principal); Z79.899 Other long term (current) drug therapy

== ENCOUNTER → 2025-04-02 | Outpatient (REF) | payer MEDICARE, MEDICAID ==
[~2025-04-02] MED LIST changes: +COLC0.6T47 PO; -COLC0.6T53 PO
== END ==
PROVIDERS: ATTEND Physician Assistant
DX: M19.071 Primary osteoarthritis, right ankle and foot (principal)

== ENCOUNTER → 2025-04-06 | Outpatient (REF) | payer MEDICARE, MEDICAID ==
[2025-04-06 11:05] LABS: PLATELET COUNT, AUTOMATED 176 10^3/uL (150-450)
[2025-04-06 11:27] LABS: CALCIUM LEVEL 8.9 MG/DL (8.3-10.6); CARBON DIOXIDE LEVEL 26.0 MMOL/L (20-31); CHLORIDE LEVEL 110.0 MMOL/L (98-107); CREATININE FOR GFR 1.84 MG/DL (0.55-1.30); GLOMERULAR FILTRATION RATE 29.0 (>39); POTASSIUM SERUM 4.8 MMOL/L (3.5-5.1); SODIUM LEVEL 146.0 MMOL/L (136-145)
== END ==
PROVIDERS: ATTEND Physician Assistant
DX: M79.671 Pain in right foot (principal)

== ENCOUNTER → 2025-04-15 | Outpatient (CLI) | payer MEDICARE, MEDICAID | LOC: M WHC 06:46 | PROVIDERS: ATTEND Physician Assistant | DX: N17.9 Acute kidney failure, unspecified (principal) ==

== ENCOUNTER → 2025-05-13 | Outpatient (CLI) | payer MEDICARE, MEDICAID ==
[~2025-05-13] MED LIST changes: -COLC0.6T47 PO; +COLC0.6T53 PO
== END ==
LOC: M PLAIMG 08:25
DX: M79.671 Pain in right foot (principal); M19.071 Primary osteoarthritis, right ankle and foot

== ENCOUNTER → 2025-08-10 | Outpatient (REF) | payer MEDICARE, MEDICAID ==
[2025-08-10 13:03] LABS: BASO # 0.0 10^3/uL (0.0-0.2); BASO % 0.3 % (0.0-1.0); EOS # 0.2 10^3/uL (0.0-0.5); EOS % 2.4 % (0.0-3.0); LYMPH # 4.7 10^3/uL (1.5-5.0); LYMPH % 49.5 % (24.0-44.0); MONO # 0.9 10^3/uL (0.0-0.8); MONO % 9.5 % (2.0-8.0); NEUTROPHILS # 3.6 10^3/uL (1.5-8.5); NEUTROPHILS % 37.9 % (36.0-66.0); PLATELET COUNT, AUTOMATED 175 10^3/uL (150-450)
[2025-08-10 13:41] LABS: ALT/SGPT < 9 U/L (7.0-40); AST/SGOT 18 U/L (<34); CALCIUM LEVEL 9.5 MG/DL (8.3-10.6); CARBON DIOXIDE LEVEL 24 MMOL/L (20-31); CHLORIDE LEVEL 108 MMOL/L (98-107); CREATININE FOR GFR 1.85 MG/DL (0.55-1.30); GLOMERULAR FILTRATION RATE 28.8 (>39); POTASSIUM SERUM 4.4 MMOL/L (3.5-5.1); SODIUM LEVEL 142 MMOL/L (136-145)
== END ==
PROVIDERS: ATTEND Family Medicine
DX: N18.4 Chronic kidney disease, stage 4 (severe) (principal); E03.9 Hypothyroidism, unspecified; M10.9 Gout, unspecified